=== PATIENT | female | born 1995 | race African-American/Black ===

== ENCOUNTER 2019-04-19 13:57 | Emergency (ER) | payer OTHER, SELFPAY ==
[2019-04-19 14:11] VITALS: BP 117/63; PULSE 83; RESP 16; TEMP 36.6; O2SAT 100
--- NOTE | 2019-04-19 14:15 | ED.FEMALEGU ---
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 Reports malodorous discharge. Reports she was seen here for this earlier this month and treated for possible STDs. Patient reports her symptoms were not relieved. Reports recent unprotected sex and would like tested for STDs again. Denies fever, dysuria, hematuria, abdominal pain, or pelvic pain. Related Data Allergies Allergy/AdvReac Type Severity Reaction Status Date / Time No Known Drug Allergies Allergy Unknown Unknown Verified 03/24/19 14:53 Review of Systems Review of Systems: Narrative: CONSTITUTIONAL: Denies fever GASTROINTESTINAL: Denies abdominal pain, nausea, vomiting GENITOURINARY: Denies dysuria or hematuria. All systems reviewed & are unremarkable except as noted in HPI and below PMFSH Past Medical History Medical History (Updated 04/19/19 @ 15:29 by Marissa Hay PA-C) Healthy adult Surgical History Surgical History (Updated 03/24/19 @ 15:02 by Hans Gonzalez) No history of previous surgery Social History Social History (Updated 03/24/19 @ 15:02 by Hans Gonzalez) Smoking status: Never smoker Gender identity (if verbalized by the patient): Female Exam Narrative: Exam Narrative: GENERAL: Well-appearing, well-nourished, and in no acute distress. HEAD: Normocephalic, atraumatic. EYES: EOMI. CHEST: Clear to auscultation. No respiratory distress. No wheezes rales or rhonchi HEART: Regular rate and rhythm. No murmur heard. Normal peripheral pulses. ABDOMEN: Soft, nontender, nondistended, normal active bowel sounds. EXTREMITIES: Normal range of motion. No edema. SKIN: Warm, dry, no rash. NEURO: No focal deficits. Alert and oriented x3. PSYCH: Normal mood and affect PELVIC: Normal cervix. Mild amount of malodorous white cervical discharge Course Vital Signs Vital signs: Vital Signs Temperature 98 F 04/19/19 14:11 Pulse Rate 83 04/19/19 14:11 Respiratory Rate 16 04/19/19 14:11 Blood Pressure 117/63 04/19/19 14:11 Pulse Oximetry 100 04/19/19 14:11 Temperature 98 F 04/19/19 14:11 Pulse Rate 83 04/19/19 14:11 Respiratory Rate 16 04/19/19 14:11 Blood Pressure 117/63 04/19/19 14:11 Pulse Oximetry 100 04/19/19 14:11 MDM - Female Genitourinary MDM Narrative Medical decision making narrative: Patient presents the emergency department for foul-smelling vaginal discharge x1 month. She was seen here for this earlier this month and treated for chlamydia, gonorrhea and bacterial vaginosis. She was given one-time dose of metronidazole in the ED. Suspect possible incomplete treatment. Her Chlamydia, Gonorrhea, and trichomonas were negative earlier this month. Chlamydia and Gonorrhea were sent today. Trichomonas negative today. Patient will be treated for bacterial vaginosis with a week of metronidazole. She will follow up for results of Chlamydia and Gonorrhea. 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 Lab Data Labs: Lab Results 04/19/19 04/19/19 04/19/19 Range/Units 14:43 14:43 14:56 Urine Color Yellow (Yellow) Urine Appearance Clear (Clear) Urine pH 8.0 (5.0-9.0) Ur Specific [place] 1.029 (1.001-1.035) Urine Protein 2+ H (Negative) mg/dL Urine Glucose (UA) Negative (Negative) mg/dL Urine Ketones Negative (Negative) mg/dL Ur Blood (Man) Negative (Negative) Urine Nitrate Negative (Negative) Urine Bilirubin Negative (Negative) Urine Urobilinogen Negative (<2.0) mg/dL Leukocyte Esterase Rfl Trace H (Negative) ERASMO/UL Urine RBC 0-2 (0-2) /hpf Urine WBC 0-3 /hpf Ur Squamous Epith Cells Many H (Few) /hpf Urine Mucus Few H /l
[2019-04-19 15:17] LABS: Add Urine Microscopic? YES; Appearance Urine Clear (Clear); Bilirubin Urine Negative (Negative); Blood Urine Negative (Negative); Color Urine Yellow (Yellow); Glucose Urine UA Negative (Negative); Ketones Urine Negative (Negative); Leukocyte Esterase Ur Trace LEU/UL (Negative); Mucus Urine Few /lpf; Nitrate Urine Negative (Negative); Protein Urine 2+ mg/dL (Negative); RBC Urine 0-2 /hpf (0-2); Specific Grav Ur 1.029 (1.001-1.035); Squamous Epithelial Cell Urine Many /hpf (Few); Urobilinogen Urine Negative mg/dL (<2.0); WBC Urine 0-3 /hpf
== END 2019-04-19 15:43 | disposition home or self-care (01) ==
PROVIDERS: Physician Assistant; Emergency Provider Family Medicine
DX: N76.0 Acute vaginitis (principal)
CPT/HCPCS: 81001; 81025; 87070; 87491; 87591; 87808; 99284

== ENCOUNTER 2019-11-17 11:30 | Emergency (ER) | payer OTHER, SELFPAY ==
--- NOTE | 2019-11-17 12:25 | PC.NURSE ---
Called to triage, no response noted.
--- NOTE | 2019-11-17 12:40 | PC.NURSE ---
Called to triage at this time, no response in waiting room.
== END 2019-11-17 13:00 | disposition left against medical advice (07) ==
LOC: ANHED 12:44
DX: Z53.21 Procedure and treatment not carried out due to patient leaving prior to being seen by health care provider (principal)
CPT/HCPCS: 99199

== ENCOUNTER 2020-07-30 20:59 | Emergency (ER) | payer OTHER, SELFPAY ==
[2020-07-30 21:03] VITALS: BP 122/84; PULSE 68; RESP 18; TEMP 36.6; O2SAT 100
--- NOTE | 2020-07-30 22:38 | ED.GENADULT ---
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 She states that she went to a doctor got some vaginal gel which did not help. She denies any fever, pelvic pain or dysuria. Related Data Allergies Allergy/AdvReac Type Severity Reaction Status Date / Time No Known Drug Allergies Allergy Unknown Unknown Verified 07/30/20 21:07 Review of Systems Constitutional: Constitutional: Denies chills, Denies fever(s), Denies headache(s) and Denies weakness Eyes: Eyes: Denies blurry vision ENT: Denies headache(s) and Denies neck pain Cardiovascular: Cardiovascular: Denies chest pain and Denies dyspnea Respiratory: Respiratory: Denies cough and Denies dyspnea Gastrointestinal: Gastrointestinal: Denies abdominal pain, Denies diarrhea, Denies nausea and Denies vomiting Genitourinary: Genitourinary: Denies hematuria, Denies dysuria, Reports vaginal discharge and Reports vaginal odor Musculoskeletal: Musculoskeletal: Denies back pain and Denies neck pain Neurologic: Denies headache(s) and Denies weakness [facility] Past Medical History Medical History Healthy adult Surgical History Surgical History No history of previous surgery Social History Social History Smoking status: Never smoker Gender identity (if verbalized by the patient): Female Exam Const: General: no acute distress and well developed Orientation/consciousness: oriented to person, oriented to place, oriented to time and patient oriented x3 HENMT: Head: normocephalic Ears: external ears normal General nose exam: Normal external nose present Eyes: General: appearance normal, both eyes and all related structures Conjunctivae: conjunctivae normal Neck: Neck: normal visual inspection and full ROM GI: GI Palp: No abdominal tenderness and Yes Soft to palpation : External Female Exam: normal external appearance Speculum Exam - Vagina: normal appearance of the vagina and other (white vaginal discharge) Speculum Exam - Cervix: normal appearance of the cervix Bimanual Exam- Adnexa, other: normal adnexae Skin: General skin exam: normal color and turgor normal Neuro: General: oriented to person, oriented to place, oriented to time and patient oriented x3 Cognition (Neuro): normal cognition Extrem: General: normal to inspection, full ROM and no pedal edema Psych: Appearance: grossly normal Mental Status: mental status grossly normal Affect: normal affect Course Vital Signs Vital signs: Vital Signs Temperature 36.6 C 07/30/20 21:03 Pulse Rate 68 07/30/20 21:03 Respiratory Rate 18 07/30/20 21:03 Blood Pressure 122/84 07/30/20 21:03 Pulse Oximetry 100 07/30/20 21:03 Temperature 36.6 C 07/30/20 21:03 Pulse Rate 68 07/30/20 21:03 Respiratory Rate 18 07/30/20 21:03 Blood Pressure 122/84 07/30/20 21:03 Pulse Oximetry 100 07/30/20 21:03 Medical Decision Making Vital Signs Vital Signs: Vital Signs Temperature 36.6 C 07/30/20 21:03 Pulse Rate 68 07/30/20 21:03 Respiratory Rate 18 07/30/20 21:03 Blood Pressure 122/84 07/30/20 21:03 Pulse Oximetry 100 07/30/20 21:03 Temperature 36.6 C 07/30/20 21:03 Pulse Rate 68 07/30/20 21:03 Respiratory Rate 18 07/30/20 21:03 Blood Pressure 122/84 07/30/20 21:03 Pulse Oximetry 100 07/30/20 21:03 Lab Data Labs: Lab Results 07/30/20 07/30/20 07/30/20 Range/Units 22:46 22:46 22:46 Urine Color Yellow (Yellow) Urine Appearance Cloudy H (Clear) Urine pH 6.0 (5.0-9.0) Ur Specific [place] 1.031 (1.001-1.035) Urine Protein 2+ H (Negative) mg/dL Urine G
[2020-07-30 22:59] LABS: Add Urine Microscopic? YES; Appearance Urine Cloudy (Clear); Bacteria Urine Trace /hpf; Bilirubin Urine Negative (Negative); Blood Urine Negative (Negative); Color Urine Yellow (Yellow); Glucose Urine UA Negative (Negative); Ketones Urine Negative (Negative); Leukocyte Esterase Ur Negative LEU/UL (Negative); Mucus Urine Heavy /lpf; Nitrate Urine Negative (Negative); Protein Urine 2+ mg/dL (Negative); Specific Grav Ur 1.031 (1.001-1.035); Squamous Epithelial Cell Urine Many /hpf (Few); WBC Urine 0-3 /hpf
[2020-07-30] MEDS: metroNIDAZOLE 250 MG TABLET 2000 MG PO (23:33)
[2020-07-30] MEDS: FLUCONAZOLE 100 MG TABLET 150 MG PO (23:34)
[2020-07-30] MEDS: cefTRIAXone 1 GM VIAL 0.5 GM IM (23:40)
== END 2020-07-30 23:58 | disposition home or self-care (01) ==
PROVIDERS: Emergency Provider Emergency Medicine
DX: N89.8 Other specified noninflammatory disorders of vagina (principal)
CPT/HCPCS: 81001; 81025; 87070; 87491; 87591; 87808; 96372; 99284; A9270; J0696

== ENCOUNTER 2021-01-08 10:12 | Emergency (ER) | payer OTHER, SELFPAY ==
[2021-01-08 10:17] VITALS: BP 111/56; PULSE 100; RESP 16; TEMP 37.1; O2SAT 100
[2021-01-08 11:31] LABS: Add Urine Microscopic? YES; Appearance Urine Cloudy (Clear); Bacteria Urine Trace /hpf; Bilirubin Urine Negative (Negative); Blood Urine Negative (Negative); Color Urine Yellow (Yellow); Glucose Urine UA Negative (Negative); Ketones Urine Negative (Negative); Leukocyte Esterase Ur Trace LEU/UL (Negative); Mucus Urine Rare /lpf; Nitrate Urine Negative (Negative); Protein Urine 1+ mg/dL (Negative); Specific Grav Ur 1.026 (1.001-1.035); Squamous Epithelial Cell Urine Moderate /hpf (Few); Urobilinogen Urine Negative mg/dL (<2.0); WBC Urine 0-3 /hpf
--- NOTE | 2021-01-08 13:11 | ED.GENADULT ---
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 <Aaron Hubbard PA-C - Last Filed: 01/08/21 13:15> Stated complaint: vag discharge, urinary symptoms <Aaron Hubbard PA-C - Last Filed: 01/08/21 13:15> Time Seen by Provider: 01/08/21 10:59 <Aaron Hubbard PA-C - Last Filed: 01/08/21 13:15> Source: patient and RN notes reviewed <Aaron Hubbard PA-C - Last Filed: 01/08/21 13:15> Mode of arrival: ambulatory <Aaron Hubbard PA-C - Last Filed: 01/08/21 13:15> Limitations: no limitations <Aaron Hubbard PA-C - Last Filed: 01/08/21 13:15> History of Present Illness HPI narrative: Patient is a 25-year-old female who presents at 4 months followed by [facility] has had an ultrasound notes that she has had some increasing discharge and odor with some mild irritation with urination over the course of the last week she denies any concern for STD denies vaginal bleeding pelvic cramping has 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 <Aaron Hubbard PA-C - Last Filed: 01/08/21 13:15> Related Data Home medications: Home Medications Medication Instructions Recorded Confirmed [id number] [id number] [id number] pkg PO 01/08/21 [Daily ] <Aaron Hubbard PA-C - Last Filed: 01/08/21 13:15> Allergies/adverse reactions: Allergies Allergy/AdvReac Type Severity Reaction Status Date / Time No Known Drug Allergies Allergy Unknown Unknown Verified 01/08/21 11:10 <Aaron Hubbard PA-C - Last Filed: 01/08/21 13:15> Review of Systems Review of Systems: All systems reviewed & are unremarkable except as noted in HPI and below <Aaron Hubbard PA-C - Last Filed: 01/08/21 13:15> PMFSH Past Medical History Medical History: Medical History Healthy adult <Aaron Hubbard PA-C - Last Filed: 01/08/21 13:15> Surgical History Surgical History: Surgical History No history of previous surgery <Aaron Hubbard PA-C - Last Filed: 01/08/21 13:15> Social History Social History: Social History Smoking status: Never smoker Gender identity (if verbalized by the patient): Female <Aaron Hubbard PA-C - Last Filed: 01/08/21 13:15> Exam Narrative: GENERAL: Well-appearing, well-nourished, and in no acute distress. HEAD: Normocephalic, atraumatic. EYES: PERRLA and EOMI. ENT: Nares clear, no rhinorrhea or epistaxis. Mucous membranes moist. CHEST: Clear to auscultation. No respiratory distress. No wheezes rales or rhonchi HEART: Regular rate and rhythm. No murmur heard. Normal peripheral pulses. ABDOMEN: Soft, nontender, nondistended FEMALE GENITOURINARY: Patient with small amount of white discharge in the vaginal vault otherwise unremarkable EXTREMITIES: Normal range of motion. No edema. SKIN: Warm, dry, no rash. NEURO: No focal deficits. Alert and oriented x3. PSYCH: Normal mood and affect. <Aaron Hubbard PA-C - Last Filed: 01/08/21 13:15> Course Course Emergency Course: Patient had vaginal exam urinalysis was obtained will be cultured vaginal cultures will be sent off she will at this time be managed with follow-up she has been advised to follow her results as well on her [facility] My[facility] she is afebrile nontoxic-appearing vital signs intact and stable she has been provided with reasons to return there is no abdominal pain no vaginal bleeding no pelvic cramping. Patient has been given reasons to return <Aaron Hubbard PA-C - Last Filed: 01/08/21 13:15> Vital Signs Vital signs: Vital Signs Temperature 98.7 F 01/08/21 10:17 Pulse Rate 100 01/08/21 10:17 Respiratory Rate 16 01/08/21 10:17 Blood Pressure 111/56 L 01/08/21 10:17 Pulse Oximetry 100 01/08/21 10:17 Temperature 98.1 F 01/08/21 13:26 Pulse Rate 90
[2021-01-08 13:26] VITALS: BP 104/66; PULSE 90; RESP 17; TEMP 36.7; O2SAT 99
== END 2021-01-08 13:25 | disposition home or self-care (01) ==
PROVIDERS: Emergency Provider General Practice
DX: O99.891 Other specified diseases and conditions complicating pregnancy (principal); N89.8 Other specified noninflammatory disorders of vagina; Z3A.00 Weeks of gestation of pregnancy not specified
CPT/HCPCS: 81001; 81025; 87070; 87086; 87088; 99283

== ENCOUNTER 2021-11-04 12:27 | Emergency (ER) | payer OTHER, SELFPAY ==
[2021-11-04 12:37] VITALS: BP 127/92; PULSE 76; RESP 16; TEMP 36.5; O2SAT 100
--- NOTE | 2021-11-04 12:57 | ED.URI ---
HPI - URI/Sore Throat General Chief Complaint: Upper Respiratory Infection Stated Complaint: covid positive Time Seen by Provider: 11/04/21 12:32 History of Present Illness HPI Narrative: 26-year-old female presents the emergency room for evaluation of nausea cough and a positive COVID test result. Patient states she was at a family reunion over the weekend and was informed that she was exposed to COVID. States that she took at home COVID test on Wednesday and came back positive. Patient denies having any fevers shortness of breath or difficulty breathing. Is no medical problems Related Data Allergies Allergy/AdvReac Type Severity Reaction Status Date / Time No Known Drug Allergies Allergy Unknown Unknown Verified 11/04/21 12:54 Review of Systems Review of Systems: CONSTITUTIONAL: Denies fever, chills, or sweats. EYES: Denies visual changes, redness, or discharge. ENT: Denies rhinorrhea, congestion, sore throat, or otalgia. CARDIOVASCULAR: Denies chest pain, palpitations, or edema. RESPIRATORY: Reports cough GASTROINTESTINAL: Reports nausea GENITOURINARY: Denies dysuria or hematuria. SKIN: Denies rash or itching. MUSCULOSKELETAL: Denies back pain, joint pain, or myalgia. NEUROLOGIC: Denies headache, numbness, dizziness, or weakness. PSYCHIATRIC: Denies anxiety or depression. PMFSH Past Medical History Medical History Healthy adult Surgical History Surgical History No history of previous surgery Social History Social History Smoking status: Never smoker Gender identity (if verbalized by the patient): Female Exam Narrative: GENERAL: Well-appearing, well-nourished, no physical limitations, and in no acute distress. HEAD: Normocephalic, atraumatic. EYES: Conjunctivae normal, PERRLA and EOMI. NECK: Supple. No adenopathy or masses. CHEST: Clear to auscultation. No respiratory distress. No wheezes rales or rhonchi. No tenderness. HEART: Regular rate and rhythm. No murmur heard. Normal peripheral pulses. ABDOMEN: Soft, nontender, nondistended, normal active bowel sounds. EXTREMITIES: Normal range of motion. No edema. No clubbing or cyanosis SKIN: Warm, dry, no rash. No noted wounds NEURO: No focal deficits. Alert and oriented x3. MAEW. CN's II-XI intact bilaterally, normal gait PSYCH: Cooperative. Normal mood and affect. Course Vital Signs Vital signs: Vital Signs Temperature 36.5 C 11/04/21 12:37 Pulse Rate 76 11/04/21 12:37 Respiratory Rate 16 11/04/21 12:37 Blood Pressure 127/92 H 11/04/21 12:37 Pulse Oximetry 100 11/04/21 12:37 Oxygen Delivery Room Air 11/04/21 12:37 Temperature 36.5 C 11/04/21 12:37 Pulse Rate 76 11/04/21 12:37 Respiratory Rate 16 11/04/21 12:37 Blood Pressure 127/92 H 11/04/21 12:37 Pulse Oximetry 100 11/04/21 12:37 Oxygen Delivery Room Air 11/04/21 12:56 Discharge Plan Discharge Clinical Impression: Upper respiratory infection, COVID, Nausea Patient Disposition: Home, Self-Care Condition: Stable Instructions: Antibiotic Form, COVID-19 (Coronavirus Disease 2019) (ED) Additional Instructions: Take Tylenol and ibuprofen as needed for body aches and fever. Prescriptions: New ondansetron 4 mg tablet,disintegrating 4 mg PO Q8H Qty: 20 0RF Follow-up/Referrals: PHYSICIAN,COLLECTION TECHNICIAN [Primary Care Provider] - Time of Disposition: 13:02
[2021-11-04 14:10] LABS: SARS-CoV-2 RNA PCR Positive
[2021-11-04 14:40] VITALS: BP 116/69; PULSE 74; RESP 16; TEMP 36.3; O2SAT 100
== END 2021-11-04 14:40 | disposition home or self-care (01) ==
LOC: ANHED 13:46
PROVIDERS: Emergency Provider Nurse Practitioner Family
DX: U07.1 COVID-19 (principal); J06.9 Acute upper respiratory infection, unspecified; R11.0 Nausea
CPT/HCPCS: 99283; C9803; U0003; U0005

== ENCOUNTER 2022-10-30 14:09 | Emergency (ER) | payer OTHER, SELFPAY ==
--- NOTE | 2022-10-30 14:31 | ED.FEMALEGU ---
HPI - Female Genitourinary General Chief complaint: Urogenital-Female Stated complaint: vaginal issue Time Seen by Provider: 10/30/22 14:32 Source: patient and RN notes reviewed Mode of arrival: ambulatory Limitations: no limitations History of Present Illness HPI Narrative: 19-year-old female presented for complaint of fall vaginal odor and thick white discharge over the past 4 days. She denies itching, dysuria, abdominal pain, dyspareunia, hematuria, flank pain, n/v/d/f/c. Was treated last month for BV. Endorses change in sexual partner since last treatment. Denies concern for std at this time. LMP 10/14/22, irregular. Related Data Allergies Allergy/AdvReac Type Severity Reaction Status Date / Time No Known Drug Allergies Allergy Unknown Unknown Verified 10/30/22 14:14 Review of Systems Review of Systems: CONSTITUTIONAL: Denies body aches, fever, chills, or sweats. CARDIOVASCULAR: Denies chest pain, palpitations, or edema. RESPIRATORY: Denies cough or dyspnea. GASTROINTESTINAL: Denies abdominal pain, nausea, vomiting, or diarrhea. GENITOURINARY: Reports vaginal odor and dc denies dysuria, frequency, urgency, hematuria, flank pain SKIN: Denies rash, itching, or wounds. MUSCULOSKELETAL: Denies back pain or myalgia. [facility] Past Medical History Medical History Healthy adult Surgical History Surgical History No history of previous surgery Social History Social History Smoking status: Never smoker Gender identity (if verbalized by the patient): Female Comments At time of signature, I have reviewed and agree with nursing past medical, surgical, social and family history unless otherwise noted. Please see nursing chart for further information. There is no relevant family history pertinent to the presenting complaint Exam Narrative: GENERAL: Well-appearing and in no acute distress. HEAD: Normocephalic EYES: EOMI. . ENT: Mucous membranes pink and moist. NECK: Normal AROM. Supple. CHEST: No respiratory distress. Clear to auscultation. HEART: Regular rate and rhythm. ABDOMEN: Soft, nontender, nondistended, normal active bowel sounds. No CVA tenderness : Vagina: normal vaginal introitus, pink with bleeding in vault from cervix c/w menses. No foreign body, laceration or lesions. No swelling. Nontender. No odor. normal appearance of the cervix, closed. Chaperoned by Kaia DALEY SKIN: Warm, dry, no rash. NEURO: No focal deficits. Alert and oriented x3. Gait steady. PSYCH: Normal affect. Course Course Emergency Course: Patient is aware of diagnosis, understands and agrees to treatment plan. Anticipatory guidance given. Patient agrees to follow-up as directed and is aware of reasons to seek care at the emergency department. Portions of this record may have been created with voice recognition software Level of Care: Express Care Visit Vital Signs Vital signs: Vital Signs Temperature 99.0 F 10/30/22 14:39 Pulse Rate 95 10/30/22 14:39 Respiratory Rate 16 10/30/22 14:39 Blood Pressure 104/63 10/30/22 14:39 Pulse Oximetry 99 10/30/22 14:39 Oxygen Delivery Room Air 10/30/22 14:39 Temperature 99.0 F 10/30/22 14:39 Pulse Rate 95 10/30/22 14:39 Respiratory Rate 16 10/30/22 14:39 Blood Pressure 104/63 10/30/22 14:39 Pulse Oximetry 99 10/30/22 14:39 Oxygen Delivery Room Air 10/30/22 14:39 Reviewed MDM - Female Genitourinary MDM Narrative Medical decision making narrative: Vaginal culture sent. pt started menses. neg preg. Informed Pt will be contacted w/ results when they become available, and explained that we may treat empirically at this time vs waiting until culture results. Pt is aware the culture may not detect infection and odor may be r/t hormonal changes of starting menses,
[2022-10-30 14:39] VITALS: BP 104/63; PULSE 95; RESP 16; TEMP 37.2; O2SAT 99
== END 2022-10-30 15:24 | disposition home or self-care (01) ==
PROVIDERS: Emergency Provider Nurse Practitioner Family
DX: N89.8 Other specified noninflammatory disorders of vagina (principal)
CPT/HCPCS: 81025; 87070; 99213; G0463

== ENCOUNTER 2023-01-07 12:41 | Emergency (ER) | payer OTHER, SELFPAY ==
[2023-01-07 12:46] VITALS: BP 94/66; PULSE 94; RESP 16; TEMP 36.5; O2SAT 99
--- NOTE | 2023-01-07 12:46 | ED.URI ---
HPI - URI/Sore Throat General Chief Complaint: Upper Respiratory Infection Stated Complaint: Sinus Time Seen by Provider: 01/07/23 12:46 Source: patient Mode of arrival: ambulatory Limitations: no limitations History of Present Illness HPI Narrative: Patient is a 27-year-old female presents 1-2 weeks of sinus congestion, cough and sore throat. Patient states she has also had some eye irritation. Denies any fever, chills nausea vomiting, diarrhea. Patient use nasal spray and Tea with no relief. Related Data Allergies Allergy/AdvReac Type Severity Reaction Status Date / Time No Known Drug Allergies Allergy Unknown Unknown Verified 01/07/23 12:46 Review of Systems Review of Systems: All systems reviewed & are unremarkable except as noted in HPI and below Constitutional: Constitutional: Denies body ache(s), Denies chills, Denies fatigue, Denies fever(s), Denies headache(s), Denies malaise and Denies weakness Eyes: Eyes: Denies blurry vision, Denies itchy eyes and Denies loss of vision ENT: Denies otalgia, Denies headache(s), Reports nasal congestion, Denies sinus pain and Reports sore throat Cardiovascular: Cardiovascular: Denies chest pain, Denies irregular heart rhythm and Denies dyspnea Respiratory: Respiratory: Reports cough and Denies dyspnea Gastrointestinal: Gastrointestinal: Denies abdominal pain, Denies diarrhea, Denies nausea and Denies vomiting Musculoskeletal: Musculoskeletal: Denies back pain, Denies myalgias and Denies arthralgias Integumentary/Breasts: Skin/Breast: Denies pruritus and Denies rash Neurologic: Denies headache(s), Denies loss of vision and Denies weakness Psychiatric: Psychiatric: Reports no additional psychiatric complaints Endocrine: Endocrine: Denies fatigue Allergic/Immunologic: Allergic/Immunologic: Denies itchy eyes PMFSH Past Medical History Medical History Healthy adult Surgical History Surgical History No history of previous surgery Social History Social History Smoking status: Never smoker Gender identity (if verbalized by the patient): Female Comments At time of signature, agree with nursing past medical, surgical, social and family history. There is no relevant family history pertinent to the presenting complaint. Exam Const: General: cooperative, healthy appearing, comfortable, no acute distress and well nourished Nutritional Appearance: well nourished Orientation/consciousness: patient oriented x3 Limitations: no limitations HENMT: Head: normal to inspection, normocephalic and atraumatic Ears: hearing grossly normal bilaterally, external ears normal, TM's normal bilaterally, EAC's normal and no periauricular adenopathy Face/Nose/Sinus: Normal external nose present, Abnormal mucous membranes and turbinates present erythematous bilateral and diffuse, normal facial exam, sinuses nontender and face symmetric Face and sinus: normal facial exam, sinuses nontender and face symmetric Mouth: Yes Normal oral and palatal mucosa present, Yes lip normal, Yes tongue normal, Yes Normal salivary glands and ducts present, Yes oropharynx normal and Yes moist mucous membranes Teeth and gingiva: dentition normal Throat: tonsils normal, uvula midline, posterior oropharynx abnormal erythema and postnasal drainage Eyes: General: appearance normal, both eyes and all related structures Alignment and Position: alignment normal and position normal Periorbital: periorbital findings normal Eyelids: eyelids normal Pupils: Equal, round and reactive pupils present Neck: Neck: normal visual inspection, full ROM, no lymphadenopathy and supple Chest: Chest palpation & inspection: normal inspection of the chest and normal palpation of entire chest wall Resp: Effort & Inspection: normal respiratory effort and able to speak in c
== END 2023-01-07 13:05 | disposition home or self-care (01) ==
PROVIDERS: Emergency Provider Nurse Practitioner Family
DX: J06.9 Acute upper respiratory infection, unspecified (principal); R05.9 Cough, unspecified
CPT/HCPCS: 99213; G0463

== ENCOUNTER 2023-02-02 17:29 | Emergency (ER) | payer OTHER, SELFPAY ==
[2023-02-02 17:51] VITALS: BP 78/55; PULSE 84; RESP 16; TEMP 36.7; O2SAT 99
--- NOTE | 2023-02-02 18:17 | ED.FEMALEGU ---
HPI - Female Genitourinary General Chief complaint: Urogenital-Female Stated complaint: Vaginal Problems Time Seen by Provider: 02/02/23 18:17 Source: patient, RN notes reviewed and old records reviewed Mode of arrival: ambulatory Limitations: no limitations History of Present Illness HPI Narrative: 27-year-old female presents to the [facility] with complaints of vaginal issues. Patient states 3-4 days ago started with some vaginal discharge and an abnormal smell. Does have a history of BV, states it feels just like last time. Requesting the gel and sit of the pills. Patient is declining the exam due to having 2 small children with her. Denies any chances of . Denies urinary symptoms. Denies chances of STDs. Related Data Allergies Allergy/AdvReac Type Severity Reaction Status Date / Time No Known Drug Allergies Allergy Unknown Unknown Verified 02/02/23 17:55 Review of Systems Review of Systems: All systems reviewed & are unremarkable except as noted in HPI and below Constitutional: Constitutional: Reports no additional constitutional complaints Eyes: Eyes: Reports no additional eye complaints ENT: Reports system reviewed and no additional complaints, except as documented Cardiovascular: Cardiovascular: Reports no additional cardiovascular complaints, Denies chest pain and Denies dyspnea Respiratory: Respiratory: Reports no additional respiratory complaints, Denies chest congestion, Denies cough and Denies dyspnea Gastrointestinal: Gastrointestinal: Reports no additional gastrointestinal complaints, Denies abdominal pain, Denies nausea and Denies vomiting Genitourinary: Genitourinary: Reports as per HPI Musculoskeletal: Musculoskeletal: Reports no additional musculoskeletal complaints Integumentary/Breasts: Skin/Breast: Reports system reviewed and no additional complaints, except as docu Neurologic: Reports system reviewed and no additional complaints, except as documented Psychiatric: Psychiatric: Reports no additional psychiatric complaints Allergic/Immunologic: Allergic/Immunologic: Reports no additional allergic/immunologic complaints [facility] Past Medical History Medical History Healthy adult Surgical History Surgical History No history of previous surgery Social History Social History Smoking status: Never smoker Gender identity (if verbalized by the patient): Female Comments At the time of my signature, I reviewed and agree with the nursing past medical, surgical, social, and family history. There is no relevant family history pertinent to the patient complaint. Exam Const: General: cooperative, healthy appearing, comfortable, no acute distress, well developed, alert and well nourished Nutritional Appearance: well nourished Orientation/consciousness: patient oriented x3 Limitations: no limitations HENMT: Head: normal to inspection Ears: hearing grossly normal bilaterally and external ears normal Face/Nose/Sinus: Normal external nose present, Normal nares present, Normal nasal mucous membranes and turbinates present, normal facial exam and face symmetric Face and sinus: normal facial exam and face symmetric Eyes: General: appearance normal, both eyes and all related structures Alignment and Position: alignment normal Periorbital: periorbital findings normal Pupils: Equal, round and reactive pupils present EOM: EOMs intact bilaterally Neck: Neck: normal visual inspection, full ROM, no lymphadenopathy and no meningeal signs Chest: Chest palpation & inspection: normal inspection of the chest Resp: Effort & Inspection: normal respiratory effort and able to speak in complete sentences Auscultation: clear to auscultation bilaterally, no crackles, no rales, no rhonchi and no wheezes Cardio: Rate: regular rate Rhythm: regula
== END 2023-02-02 18:33 | disposition home or self-care (01) ==
PROVIDERS: Emergency Provider Nurse Practitioner
DX: N76.0 Acute vaginitis (principal)
CPT/HCPCS: 81003; 99213; G0463

== ENCOUNTER 2023-03-20 18:49 | Emergency (ER) | payer OTHER, SELFPAY ==
[2023-03-20 19:01] VITALS: BP 97/79; PULSE 65; RESP 16; TEMP 36.7; O2SAT 99
--- NOTE | 2023-03-20 19:36 | ED.FEMALEGU ---
HPI - Female Genitourinary General Chief complaint: Urogenital-Female Stated complaint: vaginal issue Time Seen by Provider: 03/20/23 19:36 Source: patient Mode of arrival: ambulatory Limitations: no limitations History of Present Illness HPI Narrative: 27-year-old female presents with complaint of vaginal odor and discharge, itching for 2-3 days. 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 Did schedule an appointment. No concerns for STI. No urinary symptoms. All systems reviewed and negative except as noted above. Related Data Allergies Allergy/AdvReac Type Severity Reaction Status Date / Time No Known Drug Allergies Allergy Unknown Unknown Verified 03/20/23 18:59 Review of Systems Review of Systems: CONSTITUTIONAL: Denies fever, chills, or sweats. EYES: Denies visual changes, redness, or discharge. ENT: Denies rhinorrhea, congestion, sore throat, or otalgia. CARDIOVASCULAR: Denies chest pain, palpitations, or edema. RESPIRATORY: Denies cough or dyspnea. GASTROINTESTINAL: Denies abdominal pain, nausea, vomiting, or diarrhea. GENITOURINARY: Denies dysuria or hematuria. Reports vaginal discharge, itching and odor. SKIN: Denies rash or itching. MUSCULOSKELETAL: Denies back pain, joint pain, or myalgia. NEUROLOGIC: Denies headache, numbness, or weakness. PSYCHIATRIC: Denies anxiety or depression. All other systems reviewed are negative, except as documented in HPI. [facility] Past Medical History Medical History Healthy adult Surgical History Surgical History No history of previous surgery Social History Social History Smoking status: Never smoker Gender identity (if verbalized by the patient): Female Comments At time of signature, agree with nursing past medical, surgical, social and family history. There is no relevant family history pertinent to the presenting complaint. Exam Narrative: GENERAL: This is a well-nourished, well-developed patient, in no apparent distress. HEAD: normocephalic, atraumatic. EYES: PERRL. Sclera clear/white. Vision is grossly intact. EARS: External ears normal NOSE: External nose normal NECK: Neck supple, non-tender without lymphadenopathy, masses or thyromegaly. CARDIOVASCULAR: Regular rate and rhythm without murmurs, gallops, or rubs. RESPIRATORY: Clear to auscultation. Breath sounds equal bilaterally. No wheezes, rales, or rhonchi. SKIN: warm, Dry, intact with no suspicious lesions or rash, good texture and turgor. NEURO: awake, alert, and oriented to person, place and time. There were no obvious focal neurologic abnormalities. EXTREMITIES: No joint tenderness, effusion, or edema noted. Pelvic exam deferred by patient Course Course Level of Care: Express Care Visit Vital Signs Vital signs: Vital Signs Temperature 36.7 C 03/20/23 19:01 Pulse Rate 65 03/20/23 19:01 Respiratory Rate 16 03/20/23 19:01 Blood Pressure 97/79 L 03/20/23 19:01 Pulse Oximetry 99 03/20/23 19:01 Oxygen Delivery Room Air 03/20/23 19:01 Temperature 36.7 C 03/20/23 19:01 Pulse Rate 65 03/20/23 19:01 Respiratory Rate 16 03/20/23 19:01 Blood Pressure 97/79 L 03/20/23 19:01 Pulse Oximetry 99 03/20/23 19:01 Oxygen Delivery Room Air 03/20/23 19:01 reviewed MDM - Female Genitourinary MDM Narrative Medical decision making narrative: patient deferred pelvic exam. Requesting treatment for bacterial vaginosis and yeast. Has appointment with customer service representative teller in 2 weeks. Patient is aware of diagnosis, understands and agrees to treatment plan. Anticipatory guidance given. Patient agrees to follow-up as directed and is aware of reasons to seek care at the emergency department. Portions of this record may have been created with voice recognition software Discharge Plan Di
== END 2023-03-20 19:50 | disposition home or self-care (01) ==
PROVIDERS: Emergency Provider Nurse Practitioner Family
DX: N89.8 Other specified noninflammatory disorders of vagina (principal)
CPT/HCPCS: 99213; G0463

== ENCOUNTER 2023-06-05 13:34 | Emergency (ER) | payer OTHER, SELFPAY ==
[2023-06-05 14:10] VITALS: BP 107/76; PULSE 65; RESP 18; TEMP 36.7; O2SAT 100
--- NOTE | 2023-06-05 14:42 | ED.FEMALEGU ---
HPI - Female Genitourinary General Chief complaint: Urogenital-Female Stated complaint: Vaginal Problems Time Seen by Provider: 06/05/23 14:32 Source: patient and RN notes reviewed History of Present Illness HPI Narrative: Patient presents today complaining of 5 day history vaginal itching and odor with a thin white discharge. Symptoms began after having intercourse using a different condoms than she normally does. Denies any external irritation or itching. States she believes she has bacterial vaginosis and yeast infection. Reports she called her OBGYN for an appointment but they could not get her in for 2-3 weeks. She denies any urinary symptoms or concerns regarding sexually transmitted infections. She has not tried any [id number] treatment prior to arrival. Related Data Allergies Allergy/AdvReac Type Severity Reaction Status Date / Time No Known Drug Allergies Allergy Unknown Unknown Verified 06/05/23 13:53 Review of Systems Review of Systems: CONSTITUTIONAL: Denies body aches, fever, chills, or sweats. EYES: Denies visual changes, redness, or discharge. ENT: Denies rhinorrhea, congestion, sore throat, or otalgia. CARDIOVASCULAR: Denies chest pain, palpitations, or edema. RESPIRATORY: Denies cough or dyspnea. GASTROINTESTINAL: Denies abdominal pain, nausea, vomiting, or diarrhea. GENITOURINARY: Denies dysuria or hematuria. + vaginal itching, odor, discharge SKIN: Denies rash, itching, or wounds. MUSCULOSKELETAL: Denies back pain, joint pain, or myalgia. NEUROLOGIC: Denies headache, numbness, tingling, or weakness. PSYCH: Denies depression or anxiety. [facility] Past Medical History Medical History Healthy adult Surgical History Surgical History No history of previous surgery Social History Social History Smoking status: Never smoker Gender identity (if verbalized by the patient): Female Comments At time of signature, I have reviewed and agree with nursing past medical, surgical, social and family history unless otherwise noted. Please see nursing chart for further information. There is no relevant family history pertinent to the presenting complaint Exam Narrative: GENERAL: Well-appearing, well-nourished, and in no acute distress. HEAD: Normocephalic, atraumatic. EYES: EOMI. No redness or drainage. Conjunctivae normal. ENT: Mucous membranes pink and moist. NECK: Normal AROM. CHEST: No respiratory distress. : Exam deferred EXTREMITIES: Normal range of motion. No edema. SKIN: Warm, dry, no rash. Capillary refill normal. Normal skin turgor. NEURO: No focal deficits. Alert and oriented x3. Gait steady. PSYCH: Normal affect. No signs of depression or anxiety. Course Course Level of Care: Express Care Visit Vital Signs Vital signs: Vital Signs Temperature 98.1 F 06/05/23 14:10 Pulse Rate 65 06/05/23 14:10 Respiratory Rate 18 06/05/23 14:10 Blood Pressure 107/76 06/05/23 14:10 Pulse Oximetry 100 06/05/23 14:10 Oxygen Delivery Room Air 06/05/23 14:10 Temperature 98.1 F 06/05/23 14:10 Pulse Rate 65 06/05/23 14:10 Respiratory Rate 18 06/05/23 14:10 Blood Pressure 107/76 06/05/23 14:10 Pulse Oximetry 100 06/05/23 14:10 Oxygen Delivery Room Air 06/05/23 14:10 Reviewed MDM - Female Genitourinary MDM Narrative Medical decision making narrative: Patient will be treated with both Metrogel and fluconazole as requested. She will follow-up with her OBGYN if symptoms do not improve. Anticipatory guidance given. Differential Diagnosis Differential diagnosis: Likely bacterial vaginosis, vaginitis and other (Candidiasis) Critical Care Time Critical Care Time Critical Care Time: No Discharge Plan Discharge Clinical Impression: Vaginal discharge Patient
== END 2023-06-05 14:45 | disposition home or self-care (01) ==
PROVIDERS: Emergency Provider Nurse Practitioner
DX: N89.8 Other specified noninflammatory disorders of vagina (principal)
CPT/HCPCS: 99213; G0463

== ENCOUNTER 2023-08-09 09:17 | Emergency (ER) | payer OTHER, SELFPAY ==
[2023-08-09 09:31] VITALS: BP 112/78; PULSE 80; RESP 16; TEMP 36.6; O2SAT 100
--- NOTE | 2023-08-09 09:47 | ED.FEMALEGU ---
HPI - Female Genitourinary General Chief complaint: Urogenital-Female Stated complaint: vaginal discharge Time Seen by Provider: 08/09/23 09:36 Source: patient, RN notes reviewed and old records reviewed Mode of arrival: ambulatory Limitations: no limitations History of Present Illness HPI Narrative: Patient presents today complaining of a 2 week history of malodorous vaginal discharge that is chunky and white. Patient has been seen numerous times in the past for similar symptoms and has been treated with Metrogel and fluconazole without testing. She has an appointment with her OBGYN in a few weeks. 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 Related Data Allergies Allergy/AdvReac Type Severity Reaction Status Date / Time No Known Drug Allergies Allergy Unknown Unknown Verified 08/09/23 09:26 Review of Systems Review of Systems: CONSTITUTIONAL: Denies body aches, fever, chills, or sweats. EYES: Denies visual changes, redness, or discharge. ENT: Denies rhinorrhea, congestion, sore throat, or otalgia. CARDIOVASCULAR: Denies chest pain, palpitations, or edema. RESPIRATORY: Denies cough or dyspnea. GASTROINTESTINAL: Denies abdominal pain, nausea, vomiting, or diarrhea. GENITOURINARY: Vaginal odor and discharge SKIN: Denies rash, itching, or wounds. MUSCULOSKELETAL: Denies back pain, joint pain, or myalgia. NEUROLOGIC: Denies headache, numbness, tingling, or weakness. PSYCH: Denies depression or anxiety. [facility] Past Medical History Medical History Healthy adult Surgical History Surgical History No history of previous surgery Social History Social History Smoking status: Never smoker Gender identity (if verbalized by the patient): Female Comments At time of signature, I have reviewed and agree with nursing past medical, surgical, social and family history unless otherwise noted. Please see nursing chart for further information. There is no relevant family history pertinent to the presenting complaint Exam Narrative: GENERAL: Well-appearing, well-nourished, and in no acute distress. HEAD: Normocephalic, atraumatic. EYES: EOMI. No redness or drainage. Conjunctivae normal. ENT: Mucous membranes pink and moist. NECK: Normal AROM. CHEST: No respiratory distress. 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 Vaginal normal, cervix normal. Moderate amount of thin white, malodorous discharge. Swabs obtained. External genitalia normal EXTREMITIES: Normal range of motion. No edema. SKIN: Warm, dry, no rash. Capillary refill normal. Normal skin turgor. NEURO: No focal deficits. Alert and oriented x3. Gait steady. PSYCH: Normal affect. No signs of depression or anxiety. Course Course Level of Care: Express Care Visit Vital Signs Vital signs: Vital Signs Temperature 98 F 08/09/23 09:31 Pulse Rate 80 08/09/23 09:31 Respiratory Rate 16 08/09/23 09:31 Blood Pressure 112/78 08/09/23 09:31 Pulse Oximetry 100 08/09/23 09:31 Oxygen Delivery Room Air 08/09/23 09:31 Temperature 98 F 08/09/23 09:31 Pulse Rate 80 08/09/23 09:31 Respiratory Rate 16 08/09/23 09:31 Blood Pressure 112/78 08/09/23 09:31 Pulse Oximetry 100 08/09/23 09:31 Oxygen Delivery Room Air 08/09/23 09:31 MDM - Female Genitourinary MDM Narrative Medical decision making narrative: Swab sent to the hospital for bacterial vaginosis and yeast. Patient will be treated with 1 dose of fluconazole. Discussed using non scented Dove to clean vulva. Patient prefers Metrogel if positive for BV. Anticipatory guidance given. Differential Diagnosis Differential diagnosis: Likely bacterial vaginosis, vaginitis and other (Jeanne) Critical Care Time Critica
[2023-08-11 22:49] LABS: Bacterial Vaginosis POSITIVE (NEGATIVE)
== END 2023-08-09 10:05 | disposition home or self-care (01) ==
PROVIDERS: Emergency Provider Nurse Practitioner
DX: N89.8 Other specified noninflammatory disorders of vagina (principal)
CPT/HCPCS: 81513; 87070; 99214; G0463

== ENCOUNTER 2024-01-24 08:22 | Emergency (ER) | payer OTHER, SELFPAY ==
[2024-01-24 08:33] VITALS: BP 111/61; PULSE 66; RESP 18; TEMP 37; O2SAT 100
--- NOTE | 2024-01-24 08:33 | ED.ABDPAIN ---
HPI - Abdominal Pain General Stated Complaint: Vaginal Problems/Left Hand Finger Pain Time Seen by Provider: 01/24/24 08:42 Source: patient, RN notes reviewed and old records reviewed Mode of arrival: ambulatory Limitations: no limitations History of Present Illness HPI narrative: Patient presents with complaints of vaginal discharge that is consistent with past bacterial vaginosis infection. She denies any concern for STIs. Reports fishy smelling white discharge for 2 weeks. Denies any vaginal itching. She also complains of a cut to the left 3rd finger, says she cut it with scissors yesterday while putting up a [place] tree. No active bleeding at this time. Denies other complaints. No other injury Related Data Home Medications Medication Instructions Recorded Confirmed No Home Medications 01/24/24 01/24/24 Allergies Allergy/AdvReac Type Severity Reaction Status Date / Time No Known Drug Allergies Allergy Unknown Unknown Verified 01/24/24 08:52 Review of Systems Review of Systems: All systems reviewed & are unremarkable except as noted in HPI and below Constitutional: Constitutional: Reports no additional constitutional complaints ENT: Reports system reviewed and no additional complaints, except as documented Cardiovascular: Cardiovascular: Reports no additional cardiovascular complaints Respiratory: Respiratory: Reports no additional respiratory complaints Gastrointestinal: Gastrointestinal: Reports no additional gastrointestinal complaints Genitourinary: Genitourinary: Reports as per HPI, Reports vaginal discharge, Reports vaginal odor and Denies vaginal pruritus Integumentary/Breasts: Skin/Breast: Reports system reviewed and no additional complaints, except as docu and Reports as per HPI [facility] Past Medical History Medical History Healthy adult Surgical History Surgical History No history of previous surgery Social History Social History Smoking status: Never smoker Gender identity (if verbalized by the patient): Female Comments At the time of my signature, I reviewed and agree with the nursing past medical, surgical, social, and family history. There is no relevant family history pertinent to the patient complaint. Exam Const: General: cooperative, no acute distress, alert and awake Orientation/consciousness: oriented to person, oriented to place and oriented to time HENMT: Head: normal to inspection Resp: Effort & Inspection: normal respiratory effort and able to speak in complete sentences Auscultation: clear to auscultation bilaterally, no crackles, no rales, no rhonchi and no wheezes Cardio: Palpation: normal PMI Rate: regular rate Rhythm: regular rhythm Heart sounds: S1 normal heart sound present and S2 normal heart sound present Skin: Trauma: laceration (5 mm shallow laceration to left 3rd finger, no active bleeding) Neuro: General: oriented to person, oriented to place and oriented to time Cranial nerves: Yes CN's II-XII intact bilaterally Psych: Appearance: grossly normal Thought process: Normal thought process present Insight: Good insight present (Psych) Judgement: Good judgement present (Psych) Course Course Level of Care: Express Care Visit Vital Signs Vital signs: Reviewed MDM - Abdominal Pain MDM Narrative Medical decision making narrative: Patient with shallow wound to left 3rd finger, negligible. Advised patient to keep the area covered in clean until healed. Also complaining of discharge similar to past episodes of bacterial vaginosis. Metrogel prescribed. Patient nontoxic appearing. Stable for discharge home. Discharge instructions reviewed with patient, as well as provided in writing per nursing staff. The instructions also include specific and strict return/GO TO THE ER as well as f/u information. All questions have been answered, and the patient deny any further questions with discharge and discharge plan. Some parts of this dictation were generated by voice recognition software and may contain typographical and/or grammatical inaccuracies. Differential Diagnosis Differential diagnosis: Likely other (Vaginal discharge, vaginal yeast infection, STI, UTI) Lab Data Attestation: I reviewed the patient's lab results. Lab results narrative: No concern for UTI Discharge Plan Discharge Clinical Impression: Bacterial vaginosis Patient Disposition: Home, Self-Care Condition: Stable Instructions: Antibiotic Form, Bacterial Vaginosis (ED) Additional Instructions: Use medications as prescribed. Follow-up with primary care provider. Emergency department for new or worse symptoms Patient Language: Persian Prescriptions: New metronidazole 1.3 % (65 mg/5 gram) gel 1 appful vaginal ONCE Qty: 5 0RF Rx Instructions: as a single dose at bedtime No Action No Home Medications Follow-up/Referrals: PHYSICIAN,LINEN ROOM CUSTODIAN [Primary Care Provider] - Time of Disposition: 08:55
[2024-01-24 08:42] LABS: EDUAAPPEAR Cloudy; EDUABILI Negative (Negative); EDUABLOOD Negative (Negative); EDUACOLOR1 Yellow; EDUAGLUCOSE Negative (Negative); EDUAKETONE Negative (Negative); EDUALEUKO Negative (Negative); EDUANITRATE Negative (Negative); EDUAPH 7.5; EDUAPROTEIN Negative (Negative); EDUASPGRAVITY 1.025; EDUAUROBILI 0.2
== END 2024-01-24 08:58 | disposition home or self-care (01) ==
PROVIDERS: Emergency Provider Nurse Practitioner Family
DX: N76.0 Acute vaginitis (principal)
CPT/HCPCS: 81003; 99213; G0463

== ENCOUNTER 2024-06-16 08:51 | Emergency (ER) | payer SELFPAY ==
--- NOTE | ~2024-06-16 | CT_ITS ---
EXAMINATION: CT abdomen pelvis wo con DATE: 06/16/2024 10:43 INDICATION: Lower abdominal pressure and hematuria. Urinary tract infection. TECHNIQUE: Computed tomography (CT) of the abdomen and pelvis was performed without intravenous contr ast. Automated exposure control and iterative reconstruction technique were employed. The dose-length product was 216.40 mGy-cm. COMPARISON: None FINDINGS: Heart size is normal. No pericardial or pleural effusion. Minimal dependent atelectasis in the bilate ral lower lobes. Liver, gallbladder, spleen, pancreas and bilateral adrenal glands are normal. 1.4 cm low-attenuation left renal cyst. 1 mm nonobstructing stone at the lower pole of the right kidney. Ki dneys and ureters are otherwise normal with no ureteral stones, hydroureteronephrosis or perinephric/ ureteral stranding. Anteverted uterus and bilateral adnexa are unremarkable. Small amount of ascites in the deep pelvis. Bowels including the appendix are normal. There is nonspecific subtle haziness to the fat of the greater omentum along the ascending colon which could be seen with omental infarct. IMPRESSION: 1. 1 mm nonobstructing stone at a lower pole calyx of the right kidney. No ureteral stones or hydrone phrosis. 2. Nonspecific subtle haziness to the omental fat in the right lower quadrant which could be related to age-indeterminate omental infarct. Appendix is normal. 3. Small amount of ascites in the pelvis which could be reactive or physiologic. Reviewed, dictated and finalized at location B. IMPRESSION: 1. 1 mm nonobstructing stone at a lower pole calyx of the right kidney. No uret eral stones or hydronephrosis. 2. Nonspecific subtle haziness to the omental fat in the right lower quadrant w hich could be related to age-indeterminate omental infarct. Appendix is normal. 3. Small amount of ascites in the pelvis which could be reactive or physiologic .
[2024-06-16 09:00] VITALS: TEMP 36.4
--- OUTSIDE RECORDS SUMMARY | 2024-06-16 09:09 | XMS_ITS | Data Portability ---
Author Organization [facility] KAIPatricio Address [address] [place] [address] Assessment Encounter Date Assessment Date Assessment LastModified by Organization Details LastModified Time 11/06/2015 11/06/2015 Received abnormal lab letter. Unsure of previous pap results. Informed of LGSIL and need for annual testing. HPV counseling. Still doesn't want hormonal control. Not available 11/06/2015 15:06:29 02/10/2016 02/10/2016 Doucheing every three months. No new partners but wants sti screening. Last screening in May. Female hygiene counseling. Pt. to RTC prn. Not available 02/10/2016 16:40:38 07/16/2016 07/16/2016 20 y.o. SAB x 1 here from confirmation. Had confirmation with [facility]. Denies problems. Ectopic precautions. panel and PNV today. Pt. to RTC in 3 weeks for NOB and u/s scheduling. Not available 07/16/2016 12:57:39 08/07/2016 08/07/2016 NOB here for care. Reviewed labs to be wnl. 1 pound weight loss. Pt. had been taking OTC anti nausea supplement from [facility] which helped with nausea. Preferred u/s scheduling at [facility]. Pt. to RTC in 2 weeks, first trimester screen then. Not available 08/07/2016 11:35:51 Plan of Treatment Reminders Order Date Submit Date Provider Last Modified By Organization Details Last Modified Time Details Appointments None recorded. Lab urinalysi s, dipstick 2024 025 [email or web address] In-Office Order, Internal Use Only DO Not Attach Compendium DO Not Attach Compendium, Do Not Delete/merge, [id number] 5 16:50:26 urinalysi s, dipstick, reflex micro 2024 025 [facility] [address], [place], [address], 5 22:09:52 unlisted lab - CT, NG, trich vag by KRISTI 2024 025 [email or web address] [facility] (Lab), [address], [place], [address], 5 17:12:46 urinalysi s, dipstick 2016 017 In-Office Order, Internal Use Only DO Not Attach Compendium DO Not Attach Compendium, Do Not Delete/merge, [id number] 7 11:32:12 cf (cystic fibrosis) profile 2016 017 [email or web address] [facility], [address], [address], [place], [address], 7 11:37:58 CBC w/ auto diff 2016 017 SALLIE [facility], [address], [address], [place], [address], 7 15:43:11 HIV (1+2) Ab screen, serum 2016 017 SALLIE [facility], [address], [address], [place], [address], 7 06:16:20 HBsAg (hepatiti s B surface Ag), confirmat ion, serum 2016 017 [email or web address] [facility], [address], [address], [place], [address], 7 17:51:31 rubella igg Ab screen, serum 2016 017 SALLIE [facility], [address], [address], [place], [address], 7 14:27:52 varicella -zoster igg Ab screen, serum 2016 017 SALLIE [facility], [address] [facility] [address] [facility] [address], [place], [address], 7 14:27:44 drug screen, 5 drugs, urine 2016 017 SALLIE [facility], [address] [facility] [address], [address], [place], [address], 7 16:29:38 culture, urine 2016 017 SALLIE [facility], [address] [facility] [address], [address], [place], [address], 7 00:20:05 urinalysi s, complete 2016 017 [email or web address] [facility], [address] [facility] [address], [place], [address], 7 11:37:59 hemoglobi n S (hbs), presence, blood 2016 017 SALLIE [facility], [address] [facility] [address] [facility] [address], [place], [address], 7 14:27:07 abo group + rh type, blood 2016 017 [facility], [address], [address], [place], [address], 7 11:37:59 RPR (rapid plasma reagin), quantitat emerald, serum 2016 017 [email or web address] [facility], [address] [facility], [address], [place], [address], 7 17:52:26 test, urine 2016 017 In-Office Order, Internal Use Only DO Not Attach Compendium DO Not Attach Compendium, Do Not Delete/merge, [id number] 7 12:59:38 CT + NG + TV, DNA, urine/swa b 2016 017 SALLIE [facility]Kren[facility] (Lab), [address] [place], [address], 7 08:51:18 HIV (1+2) Ab screen, serum 2015 016 DBA_[id number] [facility], [address] [facility], [address], [place], [address], 6 04:31:39 HBsAg (hepatiti s B surface Ag), serum 2015 016 DBA_PATCH_2 [id number] [facility], [address] [facility], [address], [place], [address], 6 04:31:39 RPR (rapid plasma reagin), serum 2015 016 DBA_PATCH_2 [id number] [facility], [address] [facility], [address], [place], [address], 6 04:31:39 CT + NG + TV, DNA, urine/swa b 2015 016 DBA_PATCH_2 [id number] [facility] (Lab), [address], [place], [address], 6 04:31:39 Referral None recorded. Procedures None recorded. Surgeries None recorded. Imaging US, obstetric , 1st trimester - ARRIVE WITH FULL BLADDER, NO SMALL CHILDREN. ARRIVE 15MIONS PRIOR TO SCHEDULED APPT. 2016 017 [facility] ([facility] [address] [facility], [place], [address], 7 11:14:21 Medication Orders nitrofura ntoin monohydra te/macroc rystals 100 mg capsule 2024 025 [facility] #[id number], [address], [place], [place], [id number], 5 17:07:59 Pyridium 200 mg tablet 2024 025 [facility] #27983, [address], [place], [place], [id number], 5 17:07:57 fluconazo le 150 mg tablet 2024 025 [facility] #46918, [address], [place], [place], [id number], 5 17:07:59 PNV-Selec t 27 mg-1 mg tablet 2016 017 INTERFACE [facility] #77259, [facility] [place], [place], [id number], 7 12:59:45 Flagyl 500 mg tablet 2015 016 DBA_PATCH_2 [id number] [facility] #51878, [facility] [place], [place], [id number], 6 04:31:47 Patient TargetsNo targets recorded. Patient Instructions Encounter Date Encounter Id Patient Instructions Last Modified By Organization Details Last Modified Time 06/14/2024 [id number] Urinary Tract Infection (UTI) in Women: Care Instructions [email or web address] Not available 06/14/2024 17:07:52 Take your antibiotics as directed. Do not stop taking them just because you feel better. You need to take the full course of antibiotics. Drink extra water and other fluids for the next day or two. This will help make the urine less concentrated and help wash out the bacteria that are causing the infection. (If you have kidney, heart, or liver disease and have to limit fluids, talk with your doctor before you increase the amount of fluids you drink.) Avoid drinks that are carbonated or have caffeine. They can irritate the bladder. Urinate often. Try to empty your bladder each time. To relieve pain, take a hot bath or lay a heating pad set on low over your lower belly or genital area. Never go to sleep with a heating pad in place. To prevent UTIs Drink plenty of water each day. This helps you urinate often, which clears bacteria from your system. (If you have kidney, heart, or liver disease and have to limit fluids, talk with your doctor before you increase the amount of fluids you drink.) Urinate when you need to. If you are sexually active, urinate right after you have sex. Change sanitary pads often. Avoid douches, bubble baths, feminine hygiene sprays, and other feminine hygiene products that have deodorants. After going to the bathroom, wipe from front to back. When should you call for help? Call your doctor now or seek immediate medical care if: You have new or worse fever, chills, nausea, or vomiting. You have new pain in your back just below your rib cage. This is called flank pain. There is new blood or pus in your urine. You have any problems with your antibiotic medicine. Watch closely for changes in your health, and be sure to contact your doctor if: You are not getting better after taking an antibiotic for 2 days. Your symptoms go away but then come back. [email or web address] Not available 06/14/2024 17:03:58 Reason for Referral None Reported. Results Created Date Observation Date Name Description Value Unit Range Abnormal Flag Note LastModifiedBy Organization Detail LastModifiedTime 08/08/19 17 08/07/2016 urina lysis , dipst ick Leukocytes Modera te Not Available In-Office Order Internal Use Only DO Not Attach Compendium DO Not Attach Compendium, Do Not Delete/merge, [id number] 08/07/2016 11:05:40 08/08/19 17 08/07/2016 urina lysis , dipst ick Nitrite negati ve Not Available In-Office Order Internal Use Only DO Not Attach Compendium DO Not Attach Compendium, Do Not Delete/merge, 08/07/2016 11:05:40 08/08/19 17 08/07/2016 urina lysis , dipst ick Urobilinogen .2 Not Available In-Of fice Order Internal Use Only DO Not Attach Compendium DO Not Attach Compendium, Do Not Delete/merge, 08/07/2016 11:05:40 08/08/19 17 08/07/2016 urina lysis , dipst ick Protein 30 Not Available In-Office Order Internal Use Only DO Not Attach Compendium DO Not Attach Compendium, Do Not Delete/merge, 08/07/2016 11:05:40 08/08/19 17 08/07/2016 urina lysis , dipst ick pH 7.0 Not Available In-Office Order Internal Use Only DO Not Attach Compendium DO Not Attach Compendium, Do Not Delete/merge, 08/07/2016 11:05:40 08/08/19 17 08/07/2016 urina lysis , dipst ick Blood Negati ve Not Available In-Office Order Internal Use Only DO Not Attach Compendium DO Not Attach Compendium, Do Not Delete/merge, 08/07/2016 11:05:40 08/08/19 17 08/07/2016 urina lysis , dipst ick Specific Arnold 1.025 Not Available In-Off ice Order Internal Use Only DO Not Attach Compendium DO Not Attach Compendium, Do Not Delete/merge, 08/07/2016 11:05:40 08/08/19 17 08/07/2016 urina lysis , dipst ick Ketone Negati ve Not Available In-Office Order Internal Use Only DO Not Attach Compendium DO Not Attach Compendium, Do Not Delete/merge, 08/07/2016 11:05:40 08/08/19 17 08/07/2016 urina lysis , dipst ick Bilirubin Negati ve Not Available In-Office Order Internal Use Only DO Not Attach Compendium DO Not Attach Compendium, Do Not Delete/merge, [id number] 08/07/2016 11:05:40 08/08/19 17 08/07/2016 urina lysis , dipst ick Glucose Negati ve Not Available In-Office Order Internal Use Only DO Not Attach Compendium DO Not Attach Compendium, Do Not Delete/merge, [id number] 08/07/2016 11:05:40 08/08/19 17 08/07/2016 urina lysis , dipst ick Appearance Clear Not Available In-Offi ce Order Internal Use Only DO Not Attach Compendium DO Not Attach Compendium, Do Not Delete/merge, 08/07/2016 11:05:40 08/08/19 17 08/07/2016 urina lysis , dipst ick Color Yellow Not Available In-Office Order Internal Use Only DO Not Attach Compendium DO Not Attach Compendium, Do Not Delete/merge, [id number] 08/07/2016 11:05:40 07/17/19 17 07/16/2016 pregn jose test, urine HCG positi ve Not Available In-Office Order Internal Use Only DO Not Attach Compendium DO Not Attach Compendium, Do Not Delete/merge, [id number] 07/16/2016 12:46:42 10/25/19 16 10/26/2015 pap, IG + CT/NG /TV age gdln acog testing 21-29 Not Available [facility] ([facility]) [address] [facility], [place], [address], 10/31/2015 10:11:25 10/25/19 16 10/30/2015 pap, IG + CT/NG /TV diagnosis: COMMEN T abnormal EPITH ELIAL CELL ABNOR MALIT Y. LOW-G RADE SQUAM OUS INTRA EPITH ELIAL LESIO N (LGSI L); MILD DYSPL NICKOLAS IS PRESE NT. Not Available [facility] ([facility]) [address] [facility], [place], [address], 10/31/2015 10:11:25 10/25/19 16 10/30/2015 pap, IG + CT/NG /TV recommendati on: NOELLE Spaulding abnormal SUGGE ST FOLLO W UP CLINI BEN APPRO PRIAT E. Not Available [facility] ([facility]) [address] [place], [address], 10/31/2015 10:11:25 10/25/19 16 10/30/2015 pap, IG + CT/NG /TV specimen adequacy: NOELLE Spaulding SATIS FACTO RY FOR EVALU ATION . ENDOC ERVIC AL AND/O R SQUAM OUS METAP LASTI C CELLS (ENDO CERVI ARIA COMPO NENT) ARE PRESE NT. Not Available [facility] ([facility]) [address] [facility], [place], [address], 10/31/2015 10:11:25 10/25/19 16 10/30/2015 pap, IG + CT/NG /TV clinician provided ICD10: NOELLE Spaulding Z01.4 19 Not Available [facility] ([facility]) [address] [facility], [place], [address], 10/31/2015 10:11:25 10/25/19 16 10/30/2015 pap, IG + CT/NG /TV performed by: NOELLE FERRERA N, CYTOT ECHNO LOGIS T (ASCP ) Not Available [facility] ([facility]) [address] [place], [address], 10/31/2015 10:11:25 10/25/19 16 10/30/2015 pap, IG + CT/NG /TV electronical ly signed by: NOELLE ABAD MD, PATHO LOGIS T Not Available [facility] ([facility]) [address] [place], [address], 10/31/2015 10:11:25 10/25/19 16 10/30/2015 pap, IG + CT/NG /TV . . Not Available [facility] ([facility]) [address] [place], [address], 10/31/2015 10:11:25 10/25/19 16 10/30/2015 pap, IG + CT/NG /TV pathologist provided ICD10: NOELLE Spaulding R87.6 12 Not Available [facility] ([facility]) [address] [facility], [place], [address], 10/31/2015 10:11:25 10/25/19 16 10/30/2015 pap, IG + CT/NG /TV note: COMMEN T THE PAP SMEAR IS A SCREE NI TEST DESIG KALEE TO AID IN THE DETEC TION OF OSCAR LIGNA NT AND MALIG NANT CONDI TIONS OF THE UTERI NE CERVI X. IT IS NOT A DIAGN OSTIC PROCE DURE AND SHOUL D NOT BE USED THE SOLE MEANS OF DETEC TING CERVI ARIA CANCE R. BOTH FALSE -POSI TIVE AND FALSE -NEGA TIVE REPOR TS DO OCCUR . Not Available [facility] ([facility]) [address] [facility], [place], [address], 10/31/2015 10:11:25 10/25/19 16 10/30/2015 pap, IG + CT/NG /TV test methodology: COMMEN T THIS LIQUI D BASED THINP REP(R ) PAP TEST WAS SCREE KALEE WITH THE USE OF AN IMAGE GUIDE Tabitha Gonzalez. Not Available [facility] ([facility]) [address] [place], [address], 10/31/2015 10:11:25 10/25/19 16 10/30/2015 pap, IG + CT/NG /TV . COMMEN T THE HPV DNA REFLE X CRITE ETELVINA WERE NOT MET WITH THIS SPECI MEN RESUL T THERE FORE, NO HPV TESTI NG WAS PERFO RMED. Not Available [facility] ([facility]) [address] [place], [address], 10/31/2015 10:11:25 10/25/19 16 10/31/2015 pap, IG + CT/NG /TV chlamydia, nuc. acid amp NEGATI VE negati ve Not Available [facility] ([facility]) [address] [facility], [place], [address], 10/31/2015 10:11:25 10/25/19 16 10/31/2015 pap, IG + CT/NG /TV gonococcus, nuc. acid amp NEGATI VE negati ve Not Available [facility] ([facility]) [address] [facility], [place], [address], 10/31/2015 10:11:25 10/25/19 16 10/31/2015 pap, IG + CT/NG /TV trich vag by KRISTI NEGATI VE negati ve Not Available [facility] ([facility]) [address] [facility], [place], [address], 10/31/2015 10:11:25 10/25/19 16 10/31/2015 pap, IG + CT/NG /TV papig HPV age gdln acog 21-29 Not Available [facility] (Lab) [address] [place], [address], 10/31/2015 15:27:29 10/25/19 16 10/31/2015 pap, IG + CT/NG /TV diagnosis: SPRCS abnormal EPITH ELIAL CELL ABNOR MALIT Y. LOW-G RADE SQUAM OUS INTRA EPITH ELIAL LESIO N (LGSI L); MILD DYSPL NICKOLAS IS PRESE NT. Perfo rmed at: WB Not Available [facility] (Lab) [address] [facility], [place], [address], 10/31/2015 15:27:29 10/25/19 16 10/31/2015 pap, IG + CT/NG /TV recommendati on: SPR[facility] abnormal Sugge st follo w up as clini ben appro priat e. Perfo rmed at: WB Not Available [facility] (Lab) [address] [facility], [place], [address], 10/31/2015 15:27:29 10/25/19 16 10/31/2015 pap, IG + CT/NG /TV specimen adequacy: SPRCS Satis facto ry for evalu ation . Endoc ervic al and/o r squam ous metap lasti c cells (endo cervi aria compo nent) are prese nt. Perfo rmed at: WB Not Available [facility] (Lab) [address] [facility], [place], [address], 10/31/2015 15:27:29 10/25/19 16 10/31/2015 pap, IG + CT/NG /TV clinician provided ICD10 [facility] Z01.4 19 Perfo rmed at: WB Not Available [facility] (Lab) [address] [facility], [place], [address], 10/31/2015 15:27:29 10/25/19 16 10/31/2015 pap, IG + CT/NG /TV performed by: [facility] Madan booth, Cytot echno logis t (ASCP ) Perfo rmed at: WB Not Available [facility] ([facility]) [address] [facility], [place], [address], 10/31/2015 15:27:29 10/25/19 16 10/31/2015 pap, IG + CT/NG /TV electronical ly signed [facility] Ivory Abad MD, Patho logis t Perfo rmed at: WB Not Available [facility] (Lab) [address] [facility], [place], [address], 10/31/2015 15:27:29 10/25/19 16 10/31/2015 pap, IG + CT/NG /TV Pap smear, 1 slide . Perfo rmed at: WB Not Available [facility] (Lab) [address] [facility], [place], [address], 10/31/2015 15:27:29 10/25/19 16 10/31/2015 pap, IG + CT/NG /TV pathologist provided ICD10 [facility] R87.6 12 Perfo rmed at: WB Not Available [facility] (Lab) [address] [facility], [place], [address], 10/31/2015 15:27:29 10/25/19 16 10/31/2015 pap, IG + CT/NG /TV note: PAPSMR The Pap smear is a scree ni test desig kalee to aid in the detec tion of oscar ligna nt and malig nant condi tions of the uteri ne cervi x. It is not a diagn ostic proce dure and shoul d not be used as the sole means of detec ting cervi aria cance r. Both false -posi tive and false -nega tive repor ts do occur . . Perfo rmed at: WB Not Available [facility] (Lab) [address] [place], [address], 10/31/2015 15:27:29 10/25/19 16 10/31/2015 pap, IG + CT/NG /TV test methodology: IGLPAP This liqui d based ThinP rep(R ) pap test was scree kalee with the use of an image guide tabitha gonzalez. Perfo rmed at: WB Not Available [facility] (Lab) [address] [facility], [place], [address], 10/31/2015 15:27:29 10/25/19 16 10/31/2015 pap, IG + CT/NG /TV comments NEGHPV The HPV DNA refle x crite etelvina were not met with this speci men resul t there fore, no HPV testi ng was perfo rmed. . Perfo rmed at: WB Not Available [facility] (Lab) [address] [place], [address], 10/31/2015 15:27:29 10/25/19 16 10/31/2015 pap, IG + CT/NG /TV chlamydia, nuc. acid Negati ve negati ve Perfo rmed at: =G Not Available [facility] (Lab) [address] [place], [address], 10/31/2015 15:27:29 10/25/19 16 10/31/2015 pap, IG + CT/NG /TV gonococcus, nuc. acid amp Negati ve negati ve Perfo rmed at: =G Not Available [facility] (Lab) [address] [place], [address], 10/31/2015 15:27:29 10/25/19 16 10/31/2015 pap, IG + CT/NG /TV trich vag by KRISTI Negati ve negati ve Perfo rmed at: =G Not Available [facility] (Lab) [address] [place], [address], 10/31/2015 15:27:29 10/25/19 16 10/31/2015 pap, IG + CT/NG /TV papig HPV age gdln acog 21-29 Not Available [facility] (Lab) [address] [place], [address], 10/31/2015 15:27:24 10/25/19 16 10/31/2015 pap, IG + CT/NG /TV diagnosis: SPR[facility] abnormal EPITH ELIAL CELL ABNOR MALIT Y. LOW-G RADE SQUAM OUS INTRA EPITH ELIAL LESIO N (LGSI L); MILD DYSPL NICKOLAS IS PRESE NT. Perfo rmed at: WB Not Available [facility] (Lab) [address] [place], [address], 10/31/2015 15:27:24 10/25/19 16 10/31/2015 pap, IG + CT/NG /TV recommendati on: SPR[facility] abnormal Sugge st follo w up as clini ben appro priat e. Perfo rmed at: WB Not Available [facility] ([facility]) [address] [facility], [place], [address], 10/31/2015 15:27:24 10/25/19 16 10/31/2015 pap, IG + CT/NG /TV specimen adequacy: SPRCS Satis facto ry for evalu ation . Endoc ervic al and/o r squam ous metap lasti c cells (endo cervi aria compo nent) are prese nt. Perfo rmed at: WB Not Available [facility] (Lab) [address] [place], [address], 10/31/2015 15:27:24 10/25/19 16 10/31/2015 pap, IG + CT/NG /TV clinician provided ICD10 [facility] Z01.4 19 Perfo rmed at: WB Not Available [facility] ([facility]) [address] [facility], [place], [address], 10/31/2015 15:27:24 10/25/19 16 10/31/2015 pap, IG + CT/NG /TV performed by: [facility] Vee et Inezo n, Cytot echno logis t (ASCP ) Perfo rmed at: WB Not Available [facility] ([facility]) [address] [facility], [place], [address], 10/31/2015 15:27:24 10/25/19 16 10/31/2015 pap, IG + CT/NG /TV electronical ly signed [facility] Ivory Abad MD, Patho logis t Perfo rmed at: WB Not Available [facility] ([facility]) [address] [facility], [place], [address], 10/31/2015 15:27:24 10/25/19 16 10/31/2015 pap, IG + CT/NG /TV Pap smear, 1 slide . Perfo rmed at: WB Not Available [facility] ([facility]) [address] [facility], [place], [address], 10/31/2015 15:27:24 10/25/19 16 10/31/2015 pap, IG + CT/NG /TV pathologist provided ICD10 [facility] R87.6 12 Perfo rmed at: WB Not Available [facility] (Lab) [address] [facility], [place], [address], 10/31/2015 15:27:24 10/25/19 16 10/31/2015 pap, IG + CT/NG /TV note: PAPSMR The Pap smear is a scree ni test desig kalee to aid in the detec tion of oscar ligna nt and malig nant condi tions of the uteri ne cervi x. It is not a diagn ostic proce dure and shoul d not be used as the sole means of detec ting cervi aria cance r. Both false -posi tive and false -nega tive repor ts do occur . . Perfo rmed at: WB Not Available [facility] (Lab) [address], [place], [address], 10/31/2015 15:27:24 10/25/19 16 10/31/2015 pap, IG + CT/NG /TV test methodology: IGLPAP This liqui d based ThinP rep(R ) pap test was scree kalee with the use of an image guide tabitha gonzalez. Perfo rmed at: WB Not Available [facility] (Lab) [address] [facility], [place], [address], 10/31/2015 15:27:24 10/25/19 16 10/31/2015 pap, IG + CT/NG /TV comments NEGHPV The HPV DNA refle x crite etelvina were not met with this speci men resul t there fore, no HPV testi ng was perfo rmed. . Perfo rmed at: WB Not Available [facility] (Lab) [address] [facility], [place], [address], 10/31/2015 15:27:24 10/25/19 16 10/31/2015 pap, IG + CT/NG /TV chlamydia, nuc. acid Negati ve negati ve Perfo rmed at: =G Not Available [facility] (Lab) [address] [facility], [place], [address], 10/31/2015 15:27:24 10/25/19 16 10/31/2015 pap, IG + CT/NG /TV gonococcus, nuc. acid amp Negati ve negati ve Perfo rmed at: =G Not Available [facility] (Lab) [address] [facility], [place], [address], 10/31/2015 15:27:24 10/25/19 16 10/31/2015 pap, IG + CT/NG /TV trich vag by KRISTI Negati ve negati ve Perfo rmed at: =G Not Available [facility] (Lab) [address] [place], [address], 10/31/2015 15:27:24 02/10/20 16 02/11/2016 HIV (1+2) Ab scree n, serum HIV 4TH generation Non Reacti ve non reacti ve Not Available [facility] (Lab) [address] [place], [address], 02/11/2016 08:26:48 02/10/20 16 02/11/2016 CT + NG + TV, DNA, urine /swab chlamydia by KRISTI Negati ve negati ve Not Available [facility] (Lab) [address] [place], [address], 02/12/2016 01:24:55 02/10/20 16 02/11/2016 CT + NG + TV, DNA, urine /swab gonococcus by KRISTI Negati ve negati ve Not Available [facility] (Lab) [address] [place], [address], 02/12/2016 01:24:55 02/10/20 16 02/11/2016 CT + NG + TV, DNA, urine /swab trich vag by KRISTI Negati ve negati ve Not Available [facility] (Lab) [address] [place], [address], 02/12/2016 01:24:55 02/10/20 16 02/12/2016 RPR (rapi d plasm a reagi n), serum RPR Non Reacti ve non reacti ve Not Available [facility] (Lab) [address] [place], [address], 02/12/2016 04:21:25 02/10/20 16 02/12/2016 HBsAg (hepa titis B surfa ce Ag), serum HBsAg screen Negati ve negati ve Not Available [facility] (Lab) [address] [place], [address], 02/12/2016 04:29:25 07/17/19 17 07/16/2016 CBC w/ auto diff WBC 4.8 K/uL 3.4-10 .8 Not Available [facility] (Lab) [address] [place], [address], 07/16/2016 15:43:11 07/17/19 17 07/16/2016 CBC w/ auto diff red blood count 4.3 M/uL 4.2-5. 4 Not Available [facility] (Lab) [address] [place], [address], 07/16/2016 15:43:11 07/17/19 17 07/16/2016 CBC w/ auto diff hemoglobin 12.1 g/dL 11.5-1 5.5 Not Available [facility] (Lab) [address] [place], [address], 07/16/2016 15:43:11 07/17/19 17 07/16/2016 CBC w/ auto diff hematocrit 37.7 % 36.0-4 8.0 Not Available [facility] (Lab) [address] [place], [address], 07/16/2016 15:43:11 07/17/19 17 07/16/2016 CBC w/ auto diff MCV 88 fL 80-95 Not Available [facility] (Lab) [address] [place], [address], 07/16/2016 15:43:11 07/17/19 17 07/16/2016 CBC w/ auto diff MCH 28 pg 27-32 Not Available [facility] (Lab) [address] [place], [address], 07/16/2016 15:43:11 07/17/19 17 07/16/2016 CBC w/ auto diff MCHC 32 g/dL 32-36 Not Available [facility] (Lab) [address] [place], [address], 07/16/2016 15:43:11 07/17/19 17 07/16/2016 CBC w/ auto diff platelets 152 K/uL 155-37 9 low Not Available [facility] (Lab) [address] [place], [address], 07/16/2016 15:43:11 07/17/19 17 07/16/2016 CBC w/ auto diff RDW 12.6 % 11.5-1 4.5 Not Available [facility] (Lab) [address] [place], [address], 07/16/2016 15:43:11 07/17/19 17 07/16/2016 CBC w/ auto diff MPV 12.1 fL 8.9-12 .7 Not Available [facility] (Lab) [address] [place], [address], 07/16/2016 15:43:11 07/17/19 17 07/16/2016 CBC w/ auto diff neutrophils absolute 2.6 K/uL 1.4-7. 0 Not Available [facility] (Lab) [address] [place], [address], 07/16/2016 15:43:11 07/17/19 17 07/16/2016 CBC w/ auto diff lymphs (absolute) 1.5 K/uL 0.7-3. 1 Not Available [facility] (Lab) [address] [facility], [place], [address], 07/16/2016 15:43:11 07/17/19 17 07/16/2016 CBC w/ auto diff monocytes (absolute) 0.4 K/uL 0.1-0. 9 Not Available [facility] (Lab) [address] [place], [address], 07/16/2016 15:43:11 07/17/19 17 07/16/2016 CBC w/ auto diff eos (absolute) 0.3 K/uL 0.0-0. 4 Not Available [facility] (Lab) [address] [place], [address], 07/16/2016 15:43:11 07/17/19 17 07/16/2016 CBC w/ auto diff baso (absolute) 0.0 K/uL 0.1-0. 3 low Not Available [facility] ([facility]) [address] [place], [address], 07/16/2016 15:43:11 07/17/19 17 07/16/2016 CBC w/ auto diff neut % 53.6 % 40.0-7 4.0 Not Available [facility] ([facility]) [address] [place], [address], 07/16/2016 15:43:11 07/17/19 17 07/16/2016 CBC w/ auto diff lymphs % 30.5 % 14.0-4 6.0 Not Available [facility] ([facility]) [address] [place], [address], 07/16/2016 15:43:11 07/17/19 17 07/16/2016 CBC w/ auto diff mono % 8.6 % 4.0-12 .0 Not Available [facility] ([facility]) [address] [place], [address], 07/16/2016 15:43:11 07/17/19 17 07/16/2016 CBC w/ auto diff eos % 7 % <=5 high Not Available [facility] ([facility]) [address], [place], [address], 07/16/2016 15:43:11 07/17/19 17 07/16/2016 CBC w/ auto diff baso % 0.6 % 0.1-1. 1 Not Available [facility] ([facility]) [address] [place], [address], 07/16/2016 15:43:11 07/17/19 17 07/16/2016 urina lysis , dipst ick, refle x micro urhead1 URINAL YSIS, COMPLE TE Ur inalys is Gross Exam Not Available [facility] (Lab) [address] [place], [address], 07/16/2016 16:10:37 07/17/19 17 07/16/2016 urina lysis , dipst ick, refle x micro specific gravity 1.020 1.001- 1.035 Not Available [facility] ([facility]) [address] [place], [address], 07/16/2016 16:10:37 07/17/19 17 07/16/2016 urina lysis , dipst ick, refle x micro pH 7.5 5.0-7. 0 high Not Available [facility] ([facility]) [address] [place], [address], 07/16/2016 16:10:37 07/17/19 17 07/16/2016 urina lysis , dipst ick, refle x micro urine-color LT. YELLOW yellow abnormal Not Available [facility] ([facility]) [address], [place], [address], 07/16/2016 16:10:37 07/17/19 17 07/16/2016 urina lysis , dipst ick, refle x micro appearance CLEAR clear Not Available [facility] ([facility]) [address] [place], [address], 07/16/2016 16:10:37 07/17/19 17 07/16/2016 urina lysis , dipst ick, refle x micro WBC esterase NEGATI VE uL negati ve Not Available [facility] ([facility]) [address], [place], [address], 07/16/2016 16:10:37 07/17/19 17 07/16/2016 urina lysis , dipst ick, refle x micro protein TRACE mg/dL negati ve abnormal Not Available [facility] ([facility]) [address] [place], [address], 07/16/2016 16:10:37 07/17/19 17 07/16/2016 urina lysis , dipst ick, refle x micro glucose NEGATI VE mg/dL negati ve Not Available [facility] ([facility]) [address] [place], [address], 07/16/2016 16:10:37 07/17/19 17 07/16/2016 urina lysis , dipst ick, refle x micro ketones TRACE mg/dL negati ve abnormal Not Available [facility] (Lab) [address] [place], [address], 07/16/2016 16:10:37 07/17/19 17 07/16/2016 urina lysis , dipst ick, refle x micro occult blood NEGATI VE layo/u L negati ve Not Available [facility] (Lab) [address], [place], [address], 07/16/2016 16:10:37 07/17/19 17 07/16/2016 urina lysis , dipst ick, refle x micro bilirubin NEGATI VE negati ve Not Available [facility] (Lab) [address], [place], [address], 07/16/2016 16:10:37 07/17/19 17 07/16/2016 urina lysis , dipst ick, refle x micro urobilinogen 0.2 Not Available [facility] (Lab) [address] [place], [address], 07/16/2016 16:10:37 07/17/19 17 07/16/2016 urina lysis , dipst ick, refle x micro nitrite, urine NEGATI VE negati ve Not Available [facility] (Lab) [address] [place], [address], 07/16/2016 16:10:37 07/17/19 17 07/16/2016 type + scree n, serum ABO/Rh typing B Rh Positi ve Not Available [facility] (Lab) [address] [place], [address], 07/16/2016 16:29:58 07/17/19 17 07/16/2016 type + scree n, serum id-mts antbdy screen NEGATI VE Not Available [facility] (Lab) [address] [place], [address], 07/16/2016 16:29:58 07/17/19 17 07/16/2016 drug scree n, urine urine phencylclind in NEGATI VE negati ve Not Available [facility] ([facility]) [address] [place], [address], 07/16/2016 16:29:38 07/17/19 17 07/16/2016 drug scree n, urine urine cannabinoids NEGATI VE negati ve Not Available [facility] ([facility]) [address] [place], [address], 07/16/2016 16:29:38 07/17/19 17 07/16/2016 drug scree n, urine urine amphetamines NEGATI VE negati ve Not Available [facility] (Lab) [address] [place], [address], 07/16/2016 16:29:38 07/17/19 17 07/16/2016 drug scree n, urine urine cocaine NEGATI VE negati ve Not Available [facility] ([facility]) [address], [place], [address], 07/16/2016 16:29:38 07/17/19 17 07/16/2016 drug scree n, urine urine opiates NEGATI VE negati ve Not Available [facility] (Lab) [address] [place], [address], 07/16/2016 16:29:38 07/17/19 17 07/16/2016 drug scree n, urine urine barbiturates NEGATI VE negati ve Not Available [facility] ([facility]) [address] [place], [address], 07/16/2016 16:29:38 07/17/19 17 07/16/2016 drug scree n, urine urine benzo diazepin NEGATI VE negati ve Not Available [facility] ([facility]) [address] [place], [address], 07/16/2016 16:29:38 07/17/19 17 07/16/2016 drug scree n, urine udrscom This test provi dre only a scree ni suraj tical test resul t. A more speci fic alter kelsie chemi aria metho d must be order ed to obtai n a confi rmed suraj tical resul t. Not Available [facility] (Lab) [address], [place], [address], 07/16/2016 16:29:38 07/17/19 17 07/17/2016 HIV (1+2) Ab scree n, serum HIV 4TH generation Non Reacti ve non reacti ve Not Available [facility] (Lab) [address] [facility], [place], [address], 07/17/2016 06:16:20 07/17/19 17 07/17/2016 hemog lobin S (hbs) , prese nce, blood hemoglobin solubility Negati ve negati ve Since a varie ty of condi tions and other abnor mal hemog lobin s in addit ion to Hemog lobin S may give false -posi tive resul ts, posit emerald Hemog lobin Solub ility tests shoul d be confi rmed by hemog lobin fract ionat ion testi ng. Not Available [facility] (Lab) [address], [place], [address], 07/17/2016 14:27:07 07/17/19 17 07/17/2016 varic serjio- zoste r igg Ab scree n, serum varicella zoster IgG 656 index immune >165 Negat emerald <135 Equiv ocal 135 - 165 Posit emerald >165 A posit emerald resul t gener ally indic ates expos ure to the patho gen or admin istra tion of speci fic immun oglob ulins , but it is not indic ation of activ e infec tion or stage of disea se. Not Available [facility] (Lab) [address], [place], [address], 07/17/2016 14:27:44 07/17/19 17 07/17/2016 RPR (rapi d plasm a reagi n), quant itati ve, serum RPR Non Reacti ve non reacti ve Not Available [facility] (Lab) [address] [place], [address], 07/17/2016 14:27:45 07/17/19 17 07/17/2016 HBsAg (hepa titis B surfa ce Ag), confi rmati on, serum HBsAg screen Negati ve negati ve Not Available [facility] (Lab) [address] [place], [address], 07/17/2016 14:27:52 07/17/19 17 07/17/2016 rubel la igg Ab scree n, serum rubella antibodies, IgG 14.70 index immune >0.99 Non-i mmune <0.90 Equiv ocal 0.90 - 0.99 Immun e >0.99 Not Available [facility] (Lab) [address] [facility], [place], [address], 07/17/2016 14:27:52 07/17/19 17 07/17/2016 cultu re, urine urine culture, routine Final report Not Available [facility] (Lab) [address] [place], [address], 07/18/2016 00:20:05 07/17/19 17 07/17/2016 cultu re, urine result 1 LESS Cultu re shows less than 10,00 0 colon y formi ng units of bacte etelvina per daria liter of urine . This colon y count is not gener ally consi dered to be clini ben signi fican t. Not Available [facility] (Lab) [address] [place], [address], 07/18/2016 00:20:05 07/17/19 17 07/20/2016 CT + NG + TV, DNA, urine /swab chlamydia by KRISTI Negati ve negati ve Not Available [facility] (Lab) [address] [facility], [place], [address], 07/20/2016 08:51:18 07/17/1907/20/2016 CT + NG + TV, DNA, urine /swab gonococcus by KRISTI Negati ve negati ve Not Available [facility] ([facility]) [address], [place], [address], 07/20/2016 08:51:18 07/17/1907/20/2016 CT + NG + TV, DNA, urine /swab trich vag by KRISTI Negati ve negati ve Not Available [facility] ([facility]) [address], [place], [address], 07/20/2016 08:51:18 07/17/1907/27/2016 cf (cyst ic fibro sis) profi le interpretati on: No varian t detect ed. Not Available [facility] ([facility]) [address], [place], [address], 07/27/2016 18:10:35 07/17/1907/27/2016 cf (cyst ic fibro sis) profi le cystic fibrosis mutation 97 Commen t: RESUL TS: Negat emerald for the 97 mutat ions suraj zed INTER PRETA TION: This indiv idual is negat emerald for the mutat ions suraj zed. This negat emerald resul t may need furth er inter preta tion depen ding on the clini aria indic ation . This resul t reduc es but does not elimi kelsie the risk to be a CF renita er. COMME NTS: The detec tion rate varie s with [place] and is liste d below . The prese nce of an undet ected mutat ion in the CF gene canno t be ruled out. In the absen ce of famil y histo ry, the remai ni risk that a perso n with a negat emerald resul t could have at least one CF mutat ion is liste d in the table . If there is a famil y histo ry of CF, these risk figur es do not apply . As detai led infor arlen vargas this indiv idual 's famil y histo ry would permi t a more accur ate asses sment of this indiv idual 's risk to be a renita er of cysti c fibro sis, pleas e conta ct [facility] Jennifer ic Servi viktor at for a martina ed repor t. Mutat ion Detec tion Detec tion rates are based on mutat ion Rates among Ethni c frequ encie s in patie nts affec teri with Group s cysti c fibro sis. Among indiv idual s with an atypi aria or mild prese ntati on (e.g. conge nital absen ce of the vas defer ens, pancr eatit is) detec tion rates may vary from those provi ded here. Renita er risk reduc tion when no famil y Detec tion [place]ni city histo ry Rate Refer ences Afric an to 81% Jennifer in Med 3:168 , 2000 Ameri can [place] nazi 04/16 to 97% Am J Hum Jennifer 51:95 1,199 4 Jewis h - Not Insuf ficie nt data Provi ded [place] 04/15 to 93% Jennifer in Med 3:168 ,2000 ; Jennifer in Med 4:90, 2001 Hispa dejon to 78% Jennifer in Med 3:168 ,2000 ; www.d .[place] .gov/ pc/ gdb /html /PDE/ CFStu dy.ht m Jewis h, - Varie s by Jennifer Testi joey 5:47, 2000 non-A shken amy count ry Jennifer Testi joey, 1:35, 1996 of origi n Other or Mixed - Not Detec tion rate not [facility]ni [facility] Provi ded deter mined and [facility] This inter preta tion is based on the clini aria and famil y relat ionsh ip infor matio n provi ded and the curre nt under stand ing of the molec ular jennifer ics of this condi tion. MUTAT IONS SURAJ ZED: delta F311 3199d el6 CFTRd ele2, 3 R334W * delta F508* 3659d elC* D1152 H R347H delta I507* 3667d el4 E60X R347P * 1078d elT 3791d elC E92X R352Q 1288i nsTA 3849+ 10kbC to T* G178R R553X * 1677d elTA 3876d Erwin G330X R560T * 1717- 1G to A* 3905i nsT G480C R709X 1812- 1G to A 394de lTT G542X * R75X 1898+ 1G to A* 4016i nsT G551D * R764X 1898+ 5G to T 405+1 G to A G85E* S1196 X 1949d el84 405+3 A to C K710X S1251 N 2043d elG 406-1 G to A L206W S1255 X 2055d el9 to A 444de lA M1101 K S364P 2105d el13i ns5 457TA T to G N1303 K* S549N 2108d Erwin 574de lA P574H S549R T to G 2143d elT 621+1 G to T* Q1238 X T338I 2183d elAA to G 663de lT Q359K /T360 K V520F 2184d Erwin* 711+1 G to T* Q493X W1089 X 2184i nsA 711+5 G to A Q552X W1204 X 2307i nsA 712-1 G to T Q890X W1282 X* 2789+ 5G to A* 935de lA R1066 C Y1092 X C to A 2869i nsG 936de lTA R1158 X Y1092 X C to G 3120+ 1G to A* A455E * R1162 X* Y122X 3120G to A A559T R117C 3171d elC C524X R117H * *ACOG /ACMG recom belle d METHO DS/LI MITAT IONS: DNA is isola teri from the sampl e and teste d for the 97 CF mutat ions on the [facility] rs[employer] Array [employer] or[employer] ([employer] nex). Regio ns of the CFTR gene are ampli fied enzym atica lly and subje cted to a solut ion-p hase multi plex allel e-spe cific prime r exten som with subse quent hybri dizat ion to a bead array and fluor escen ce detec tion. Polym orphi sms F508C , I506V and I507V are inclu ded in this panel to rule out false posit emerald delta F508 homoz ygote s. Refle x testi ng of 5T is inclu ded in the panel for R117H inter preta tion. False posit emerald or negat emerald resul ts may occur for reaso ns that inclu de jennifer ic varia nts, blood trans fusio ns, bone marro w trans plant ation , shauna eous repre senta tion of famil y relat ionsh ips or conta minat ion of a sampl e with mater nal cells . The assay provi dre infor matio n inten ded to be used for renita er scree ni in adult s of repro ducti ve age, as an aid in newbo rn scree ni, and as a confi rmato ry test for anoth er medic ally estab lishe d diagn osis in newbo rns and child mundo. The test is not inten ded for use in diagn ostic testi ng, pre-i mplan tatio n scree ni, or for any stand -niharika e diagn ostic purpo ses witho ut confi rmati on by anoth er medic ally estab lishe d diagn ostic produ ct or proce dure. Resul ts Relea sed By: Rigo sierra, Ph.D. , [facility] tor Repor t Relea sed By: Rigo sierra, Ph.D. , [facility] tor Not Available [facility] (Lab) [address] [place], [address], 07/27/2016 18:10:35 06/15/1906/14/2024 urina lysis , dipst ick Leukocytes Large Not Available In-Offi ce Order Internal Use Only DO Not Attach Compendium DO Not Attach Compendium, Do Not Delete/merge, 06/14/2024 16:46:57 06/15/1906/14/2024 urina lysis , dipst ick Nitrite positi ve Not Available In-Office Order Internal Use Only DO Not Attach Compendium DO Not Attach Compendium, Do Not Delete/merge, 06/14/2024 16:46:57 06/15/19 25 06/14/2024 urina lysis , dipst ick Urobilinogen 1 Not Available In-Of fice Order Internal Use Only DO Not Attach Compendium DO Not Attach Compendium, Do Not Delete/merge, 06/14/2024 16:46:57 06/15/19 25 06/14/2024 urina lysis , dipst ick Protein 300 Not Available In-Office Order Internal Use Only DO Not Attach Compendium DO Not Attach Compendium, Do Not Delete/merge, 06/14/2024 16:46:57 06/15/19 25 06/14/2024 urina lysis , dipst ick pH 6.0 Not Available In-Office Order Internal Use Only DO Not Attach Compendium DO Not Attach Compendium, Do Not Delete/merge, 06/14/2024 16:46:57 06/15/19 25 06/14/2024 urina lysis , dipst ick Blood Large Not Available In-Office Order Internal Use Only DO Not Attach Compendium DO Not Attach Compendium, Do Not Delete/merge, 06/14/2024 16:46:57 06/15/19 25 06/14/2024 urina lysis , dipst ick Specific Arnold 1.030 Not Available In-Off ice Order Internal Use Only DO Not Attach Compendium DO Not Attach Compendium, Do Not Delete/merge, 06/14/2024 16:46:57 06/15/19 25 06/14/2024 urina lysis , dipst ick Ketone Trace Not Available In-Office Order Internal Use Only DO Not Attach Compendium DO Not Attach Compendium, Do Not Delete/merge, 06/14/2024 16:46:57 06/15/19 25 06/14/2024 urina lysis , dipst ick Bilirubin Small Not Available In-Offic e Order Internal Use Only DO Not Attach Compendium DO Not Attach Compendium, Do Not Delete/merge, 06/14/2024 16:46:57 06/15/19 25 06/14/2024 urina lysis , dipst ick Glucose Negati ve Not Available In-Office Order Internal Use Only DO Not Attach Compendium DO Not Attach Compendium, Do Not Delete/merge, [id number] 06/14/2024 16:46:57 06/15/19 25 06/14/2024 urina lysis , dipst ick Appearance Cloudy Not Available In-Offi ce Order Internal Use Only DO Not Attach Compendium DO Not Attach Compendium, Do Not Delete/merge, [id number] 06/14/2024 16:46:57 06/15/19 25 06/14/2024 urina lysis , dipst ick Color Red Not Available In-Office Order Internal Use Only DO Not Attach Compendium DO Not Attach Compendium, Do Not Delete/merge, [id number] 06/14/2024 16:46:57 08/13/19 17 08/11/2016 US, obste tric, 1st trime ster No observ ation record ed. Not Available 2016 15:16:19 Result Notes None recorded. Problems Name Problem SNOMED Code Status Onset Date Resolution Date Notes Provider Name and Address Organization Details Recorded Time Bacterial vaginosis 558165505 Active Rosana Wood[place] null, [place] - [facility] 6 10:21:58 Vaginitis 30960341 Active [place] [facility] 6 10:21:58 Herpesviru s infection 03077046 Active Rosana [place] [facility] 6 10:21:58 Genital herpes simplex 54382000 Active Rosana [place] [facility] 6 10:21:58 Increased frequency of urination 539640939 Active Rosana [place] [facility] 6 10:21:58 Herpes simplex 50331361 Active Rosana [place] [facility] 6 10:21:58 Vaginal discharge 461597615 Active Rosana [place] [facility] 6 10:21:58 Chlamydial infection 999556101 Active Rosana [place] [facility] 6 10:21:58 Cervicovag inal cytology: Low grade squamous intraepith elial lesion 861286315 Active Rosana [place], [place] - [facility] 6 15:06:55 89873236 Completed 201606/14/2024 Martínez Evans MA null, [facility] 5 16:30:34 Notes:vaginal odor x 1 week no itching. Sexually active 1 partner. Condom use 100%, no STI history. Wants BC Problem Notes None recorded. Procedures Surgical History Date Name Laterality Status Provider Name and Address Organization Details Recorded Time 5 Depo Injection completed Geo Gee MA [facility] 02/12/2015 12:39:13 5 Depo Injection completed Geo Gee MA [facility] 11/21/2014 12:13:30 5 Depo Injection completed Geo Gee MA [facility] 08/20/2014 15:28:20 5 Depo Injection completed Geo Gee MA [facility] 05/28/2014 15:54:31 Imaging Results Imaging Date Name Status LastModified by Organiz ation Details LastModified Time 08/11/2016 US, obstetric, 1st trimester completed Information not available 08/12/2016 15:16:19 Procedure Notes None recorded. Medical Equipment None Reported. Allergies No known drug allergies Medications Name Sig Start Date Stop Date Status Note LastModified by Organization Details LastModified Time acyclovir 800 mg tabs active Not Available Not Available Not Available medroxyproge sterone acetate 150 mg/ml susp active Not Available Not Available N ot Available fluconazole 100 mg tablet active Not Available Not Available Not Available fluconazole 150 mg tablet Take 1 tablet by oral route for 1 day. 2024 active Not Available Not Available Not Avai lable Claritin 10 mg tablet Take 1 tablet every day by oral route for 30 days. 2016 active Not Available Not Available Not Avai lable Pyridium 200 mg tablet Take 1 tablet 3 times a day by oral route for 2 days. 2024 active Not Available Not Available Not Avai lable metronidazol e 500 mg tablet Take 1 tablet twice a day by oral route for 7 days. active Not Available Not Available No t Available acyclovir 400 mg tablet Take 1 tablet every day by oral route for 30 days. 2014 active Not Available Not Available Not Avai lable ciprofloxaci n 500 mg tablet active Not Available Not Available Not Available acyclovir 800 mg tablet Take 1 tablet every day by oral route for 30 days. active Not Available Not Available No t Available DOK 100 mg capsule active Not Available Not Available Not Available phenazopyrid ine 100 mg tablet active Not Available Not Available Not Available hydrocortiso ne 1 % topical cream active Not Available Not Available Not Available cephalexin 500 mg capsule active Not Available Not Available Not Available ibuprofen 600 mg tablet active Not Available Not Available Not Available medroxyproge sterone 150 mg/mL intramuscula r suspension Inject 150 mg every 3 months by intramuscul ar route for 90 days. active Not Available Not Available No t Available amoxicillin 500 mg-potassium clavulanate 125 mg tablet active Not Available Not Available Not Available azithromycin 500 mg tablet Take 2 tablets as needed by oral route for 1 day. active Not Available Not Available N ot Available nitrofuranto in monohydrate/ macrocrystal s 100 mg capsule Take 1 capsule every 12 hours by oral route as directed for 5 days. 2024 active Not Available Not Available Not Avai lable PNV-Select 27 mg-1 mg tablet Take 1 tablet every day by oral route for 60 days. 2016 active Not Available Not Available Not Avai lable Take Action 1.5 mg tablet Take 1 tablet by oral route for 1 day. active Not Available Not Available N ot Available Vol-Plus 27 mg iron-1 mg tablet active Not Available Not Available Not Available Vitals Date Recorded Body height Body mass index (BMI) Body weight Oxygen saturation Oxygen saturation in Arterial blood by Pulse oximetry Heart rate Respiratory rate Body temperature Systolic blood pressure Diastolic blood pressure Provider Name and Address Organization Details Last Updated DateTime 5 157.48 cm 22.8 kg/m2 31428.8 9 g 98 % 98 % 98 /min 18 /min 98.1 [degF] 110 mm[Hg] 72 mm[Hg] Martínez Evans MA [place] - [facility] 5 16:39:15 Date Recorded Body weight Body mass index (BMI) Body height Systolic blood pressure Diastolic blood pressure Provider Name and Address Organization Details Last Updated DateTime 11/06/2015 62460.34 544 g 20.5 kg/m2 157.48 cm 100 mm[Hg] 80 mm[Hg] Jesus Arenas [facility] 6 14:58:47 Date Recorded Body height Body weight Body mass index (BMI) Systolic blood pressure Diastolic blood pressure Provider Name and Address Organization Details Last Updated DateTime 02/10/2016 157.48 cm 37316.94 g 20.7 kg/m2 100 mm[Hg] 60 mm[Hg] Geo Gee MA [facility] 6 16:27:24 Date Recorded Body height Body mass index (BMI) Systolic blood pressure Diastolic blood pressure Provider Name and Address Organization Details Last Updated DateTime 07/16/2016 157.48 cm 21.4 kg/m2 102 mm[Hg] 60 mm[Hg] Mimi Steele MA [facility] 07/16/2016 12:15:44 Date Recorded Body weight Provider Name an d Address Organization Details Last Updated DateTime 07/16/2016 [id number] tracey Woodall [facility] 07/17/19 17 12:57:25 Date Recorded Body height Body mass index (BMI) Systolic blood pressure Diastolic blood pressure Provider Name and Address Organization Details Last Updated DateTime 08/07/2016 157.48 cm 21.2 kg/m2 96 mm[Hg] 62 mm[Hg] Mimi Steele MA [facility] 08/07/2016 10:59:27 Date Recorded Body weight Provider Name an d Address Organization Details Last Updated DateTime 08/07/2016 [id number] tracey Rosana Woodall [facility] 7 11:35:37 Social History Question Answer Notes LastModified by Organizat ion Details LastModified Time Tobacco Smoking Status Never Smoker KRAIG Guzman, [facility] 06/14/2024 16:31:27 What Is Your Level Of Alcohol Consumption? Occasional Information not available 06/14/2024 Are You Blind Or Do You Have Difficulty Seeing? No Information not available 06/14/2024 What Is Your Level Of Caffeine Consumption? Occasional Information not available 06/14/2024 Are You Deaf Or Do You Have Serious Difficulty Hearing? No Information not available 06/14/2024 What Type Of Diet Are You Following? REGULAR Information not available 06/14/2024 Are There Any Guns Present In Your Home? No Information not available 06/14/2024 What Was The Date Of Your Most Recent Tobacco Screening? 06/14/2024 Information not available 06/14/2024 Do You Use Your Seat Belt Or Car Seat Routinely? Yes Information not available 06/14/2024 Do You Have Smoke And Carbon Monoxide Detectors In Your Home? Yes Information not available 06/14/2024 Are You Passively Exposed To Smoke? No Information not available 06/14/2024 Do You Feel Stressed (tense, Restless, Nervous, Or Anxious, Or Unable To Sleep At Night)? [id number] Information not available 06/14/2024 Do You Use Any Illicit Or Recreational Drugs? Yes Marijuana Information not available 06/14/2024 Do You Use Sunscreen Routinely? No Information not available 06/14/2024 Has Tobacco Cessation Counseling Been Provided? No Information not available 06/14/2024 Do You Or Have You Ever Used Any Other Forms Of Tobacco Or Nicotine? No Information not available 06/14/2024 Sex: Female Functional Status Question Answer Note LastModified by Organization D etails LastModified Time Are you able to care for yourself? Yes Information n ot available 06/14/2024 What is your exercise level? None Information not available 06/14/2024 Mental Status None recorded. Family History Relationship Description Onset Age of this Age Resolved Age Notes LastModified by Organization Details LastModified Time Mother Diabetes mellitus [email or web address] Not available 2015 10:10:07 Medical History Condition Response Other Y High Blood Pressure N Breast Cancer N Thyroid Problems N Kidney or Bladder Problems N GI Problems N Depression N Blood Clots N Lung Disease N Acne N Breast Problem N Eating Disorder N Anemia N Anesthesia Complications N Headaches/Migraines N Anxiety Disorder N Diabetes N Ovarian Cancer N Muscle, Joint, or Bone Problems N Blood Transfusions N Seizures/Epilepsy N Polyps N Infertility N Acid Reflux (GERD) N Cancer N Abuse/Domestic Violence N Asthma N Endometriosis N High Cholesterol N Hepatitis N Liver Disease N Heart Disease N Pre-Eclampsia N Osteoporosis N Gynecological History Statement/Question Response Flow Moderate Date of LMP 06/13/2024 STIs/STDs N HPV Vaccine N Duration of Flow (days) 4 Most Recent Mammogram Age at Menarche 15 Current Control Method None Age at First Child 19 If Post Menopausal, Age at Menopause Frequency of Cycle (Q days) 20 Sexually Active? Y Menses Monthly Y Sexual Problems? N LMP Definite Desired Control Method Condoms Obstetrics History GPAL:G 2 P 0 0 1 0 Type Value Full Term 0 Spontaneous 1 Living 0 Total 2 Past Encounters Encounter ID Performer Location Encounter Start Date Encounter Closed Date Diagnosis/Indication Diagnosis SNOMED-CT Code Diagnosis ICD10 Code Diagnosis Note [id number] Geo Gee MA [facility] (AUTO SERVICER) [address] [place] [address] 04/30/2014 12:19:12 04/30/2014 13:01:19 Bacterial vaginosis 391245384 Uses contraception [id number] [facility] (AUTO SERVICER) [address] [place] [address] 05/28/2014 14:46:35 05/28/2014 16:41:43 Uses contraception 29145966 Vaginitis 65444311 [id number] [facility] (AUTO SERVICER) [address] [place] [address] 06/20/2014 10:50:16 06/20/2014 12:55:20 [facility]pesvirus [facility] 66303521 [id number] [facility] [address] [place] [address] 07/03/2014 15:03:59 07/03/2014 15:44:27 Herpesvirus infection 62199995 [id number] [facility] (AUTO SERVICER) [address] [place] [address] 08/20/2014 14:48:53 08/20/2014 15:43:48 Uses contraception 41082801 Genital he rpes simplex 02354196 [id number] [facility] (AUTO SERVICER) [address] [place] [place] [address] 11/20/2014 10:24:20 11/20/2014 11:04:45 Uses contraception [id number] [facility] [address] [place] [address] 11/21/2014 11:44:47 11/21/2014 12:40:38 Uses contraception 94287338 [id number] Rosana Woodall [facility] (AUTO SERVICER) [address] [place] [address] 02/12/2015 12:02:07 02/12/2015 12:42:27 Uses contraception 41707787 Z30.42 Increased frequency of urination 902825142 R35.0 Herpes simplex 70064786 B00.9 [id number] Rosana Woodall [facility] (AUTO SERVICER) [address] [place] [address] 04/01/2015 10:22:47 04/01/2015 11:34:14 Herpes simplex 40223810 B00.9 Vaginal discharge 471788 006 N89.8 [id number] Rosana Woodall [facility] (AUTO SERVICER) [address] [place] [address] 04/04/2015 14:40:03 04/04/2015 15:19:32 Chlamydial infection 636535861 A74.9 [id number] Rosana Woodall [facility] (AUTO SERVICER) [address] [place] [address] 05/07/2015 11:16:42 05/07/2015 12:48:30 High risk sexual behavior 898067755 Z72.51 [id number] Rosana Woodall [facility] (AUTO SERVICER) [address] [place] [place] [address] 07/10/2015 11:55:53 07/10/2015 12:45:05 High risk sexual behavior 519401145 Z72.51 [id number] Daniel Whitt PA-C [place] [address] [facility] [address] [place] [address] 07/19/2015 13:45:25 07/19/2015 15:14:52 Vaginal discharge 782263077 N89.8 [id number] Rosana Woodall [facility] (AUTO SERVICER) [address] [place] [address] 08/07/2015 11:38:34 08/07/2015 12:20:55 Vaginitis 82775177 N76.0 [id number] [facility] [address] [place] [address] 10/25/2015 09:53:15 10/25/2015 11:29:55 Gynecologic examination 92064374 Z01.419 [id number] [facility] (AUTO SERVICER) [address] [place] [place] [address] 11/06/2015 14:46:57 11/06/2015 16:49:12 Cervicovaginal cytology: Low grade squamous intraepithelial lesion 839372245 R87.924 [id number] [facility] (AUTO SERVICER) [address] [place] [place] [address] 02/10/2016 16:20:20 02/10/2016 17:39:53 Vaginitis and vulvovaginitis 858549675 N76.0 High risk sexual behavior 209041546 Z72.51 [id number] [facility] (AUTO SERVICER) [address] [place] [place] [address] 07/16/2016 11:54:24 07/16/2016 13:46:37 [id number] Z33.1 test positive 630024046 Z32.01 [id number] [facility] (AUTO SERVICER) [address] [place] [place] [address] 08/07/2016 10:46:41 08/07/2016 12:13:29 Normal 18743441 Z34.91 [id number] MARIOLA PEREZ NP [facility] [address] 06/14/2024 16:27:02 06/14/2024 17:08:16 Body mass index 20-24 - normal 038061252 Z68.22 Acute urin severino tract infection 219185776 N39.0 Venereal d isease screening 880592135 Z11.3 Health Concerns Section Related Observation LastModified by Organization Detai ls LastModified Time None Recorded Concern Status LastModified by Organization Details LastModified Time None Recorded Advance Directives Directive None Recorded Payers Encounter Date Sequence Insurance Name Policy Number Policy Castellanos Covered Member ID Castellnaos Member ID Guarantor Name 11/06/2015 [facility] Shanti Shurn [id number] Shanti Shurn 02/10/2016 [facility]ICA[facility] H[facility] Shanti Shurn [id number] Shanti Shurn 07/16/2016 [facility]MEDICA[facility] HMO) Shanti Shurn [id number] Shnati Shurn 08/07/2016 [facility]MEDICA[facility] H[facility]) Shanti Shurn [id number] Shanti Shurn 06/14/2024 1 *SELF PAY* Vashti Roger Notes Date Note Type Note Provider Name and Address Organization Details Recorded Time 07/16/2016 text/html confirmation Rosana Talisha workman, [facility] 07/16/2016 13:00:58 06/14/2024 text/html 28 year old laura walker presents to IC with complaints of urinary frequency, dysuria, vaginal discharge and lower pelvic pressure. She states she noticed these symptoms yesterday. She denies any fever, rash, chest pain, shortness of breath, vaginal odor, sores/lesions. She states she about to start her menstrual cycle and has had some spotting. She denies any back pain. MARIOLA PEREZ NP Attn: [address]ing[address] [place], [address], [facility] [place] 06/14/2024 17:16:39 OBGyn Episode Ob Episode Information Episode Created Date Number of Fetuses Patient Bloodtype Patient rh Status Prepregnancy Weight lbs Domestic Partner Domestic Partner Phone Father Name [employer] Instructor Status 07/17/19 17 1 B Positive CLOSED Fetus Data First Name Last Name Admitted to NICU Weight (g) Sex Living Outcome Pediatric Complications Fetus ID Race Codes Race Delivery Type [id number] Joseph Calculation Initial Joseph Date Initial Exam Date Initial Exam Provider Initial Ultrasound Date Last Menstrual Period Date Ultra Sound Weeks Gestation 03/08/2017 07/16/2016 08/11/2016 05/31/2016 10 Eighteen To Twenty Week Joseph Update Ultra Sound Date Fundal Height At Umbil Quickening Date Ultra Sound Latest Weeks Gestation Final Joseph Confirmed By Final Joseph Confirmed Date Final Joseph Date Ultra Sound Latest Days Gestation 0 08/12/2016 03/08/20 17 0 Pre- Flowsheet Flowsheet Date 07/16/2016 Polo Score Blood Edema Fundus Height Fundus Units Glucose Ketones Leukocytes Nitrite Labor Signs Protein Cervic Dilation Cervic Effacement Cervic Station Type Weight in lbs Pre/Post Dialysis Refused 117.300528831603 BP Diastolic BP Location Tested BP Systolic BP Type 60 102 sitting Fetus Heart Rate Present Fetus Movement Comments 20 y.o. SAB x 1 here fr om confirmation. Had confirmation with [facility]. Denies problems. Ectopic precautions. panel and PNV today. Pt. to RTC in 3 weeks for NOB and u/s scheduling. Flowsheet Date 08/07/2016 Polo Score Blood Edema Fundus Height Fundus Units Glucose Ketones Leukocytes Nitrite Labor Signs Protein Cervic Dilation Cervic Effacement Cervic Station neg none negative Type Weight in lbs Pre/Post Dialysis Refused 116.944930532099 BP Diastolic BP Location Tested BP Systolic BP Type 62 96 sitting Fetus Heart Rate Present Fetus Movement Comments NOB here for care. Reviewed labs to be wnl. 1 pound weight loss. Pt. had been taking OTC anti nausea supplement from [facility] which helped with nausea. Preferred u/s scheduling at [facility]. Pt. to RTC in 2 weeks, first trimester screen then. Flowsheet Date 06/14/2024 Polo Score Blood Edema Fundus Height Fundus Units Glucose Ketones Leukocytes Nitrite Labor Signs Protein Cervic Dilation Cervic Effacement Cervic Station Type Weight in lbs Pre/Post Dialysis Refused Weight 124.884031587330 BP Diastolic BP Location Tested BP Systolic BP Type 72 L arm 110 sitting Fetus Heart Rate Present Fetus Movement Comments Menstrual History Last Menstrual Date Menses Monthly On Bcp Conception Prior Menses Frequency Hcg Plus Date Menarche Onset Age 0305/31/2016 false 14 Genetic Screening And Infection History Question Response Note Patient's Age Will Be 35 Yea rs Or Older At Estimated Date of Delivery false Thalassemia (Macedonian, Sami, Mediterranean, Or Background): MCV < 80 false Neural Tube Defect (Meningom yelocele, Spina Bifida, Or Anencephaly) false Congenital Heart Defect false Down Syndrome false Ameya-Sachs (eg, Orthodox, Cajun, Algerian-Barney) f alse Christina Disease false Sickle Cell Disease Or Trait () false Hemophilia Or Other Blood Disorders false Muscular Dystrophy false Cystic Fibrosis false Goodwin's Chorea false Mental Retardation/Autism false If Yes, Was Person Tested For Fragile X? false Other Inherited Genetic Or Chromosomal Disorder false Maternal Metabolic Disorder (eg, Type 1 Diabetes , PKU) false Patient Or Baby's Father Had A Child With Defects Not Listed Above false Recurrent Loss, Or A Stillbirth true SAB Medications (including Suppl ements, Vitamins, Herbs, OTC Drugs), Illicit/Recreational Drugs, Alcohol true Bendryl If Yes, Agent(s) And Strength/Dosage false Any Other Genetic History false Live With Someone With TB Or Exposed To TB false Patient Or Partner Has History Of Genital Herpes false Rash Or Viral Illness Since Last Menstrual Perio d false History Of STD, Gonorrhea, Chlamydia, HPV, Syphi lis true Chlamydia Other Infection History false Delivery Information Delivery Date Delivery Type Labor Anesthesia Weeks Gestation Incision Type Labor Labor Length Hrs Delivered By Post Complications Tubal Sterilization Discharge Date Comments Discharge Information Feeding Method Contraceptive Method Maternal HG B and HCT Levels
--- OUTSIDE RECORDS SUMMARY | 2024-06-16 09:10 | XMS_ITS | Data Portability ---
Author Organization [employer] , [facility] Address [address] [place] [address] Care Team Providers Care Table Games Floor Supervisor Name Role Phone [facility] Furnace Combustion Analyst Assessment Encounter Date Assessment Date Assessment LastModified by Organization Details LastModified Time 08/27/2022 08/27/2022 Pt is a 27 yo F here today for Infection/STI testing. Discussed the various types of Infections and STIs, related symptoms and the potential consequences (including effects on fertility) of STI. Reviewed ways to limit exposure and prevention techniques. POC SureSwab Would like STI blood work Last PAP was 06/2019. Denies wanting PAP today- will RTC. [email or web address] Not available 08/27/2022 22:58:08 Plan of Treatment Reminders Order Date Submit Date Provider Last Modified By Organization Details Last Modified Time Details Appointments None recorded. Lab bacterial vaginosis + vaginitis panel, vaginal 2024 025 [facility], [address] [place], [address], 5 09:18:06 bacterial vaginosis + vaginitis panel, vaginal 2023 024 SALLIE [facility], [address] [place], [address], 4 15:12:28 unlisted lab - Pap reflex hold 2023 024 tena pinto [facility], [address] [place], [address], 5 15:43:49 pap, LB 2023 024 [facility], [address] [facility], [place], [address], 4 09:49:40 unlisted lab - STD screening ([facility]) 2023 024 [facility], [address] [place], [address], 4 12:06:13 bacterial vaginosis + vaginitis panel, vaginal 2023 024 [facility], [address] [place], [address], 4 14:27:39 bacterial vaginosis + vaginitis panel, vaginal 2022 023 [facility], [address] [place], [address], 3 12:57:34 unlisted lab - STD screening ([facility]) 2022 023 [facility], [address] [place], [address], 3 12:42:05 bacterial vaginosis + vaginitis panel, vaginal 2022 023 [facility], [address] [place], [address], 3 14:11:30 Referral None recorded. Procedures None recorded. Surgeries None recorded. Imaging None recorded. Medication Orders Plan B One-Step 1.5 mg tablet 2024 025 [facility] #[id number], [address] [facility], [place], [place], [id number], 5 16:27:33 fluconazole 150 mg tablet 2022 023 [id number] [facility] #[id number], [address] [place], [place], [id number], 16:00:53 Patient TargetsNo targets recorded. Patient Instructions Encounter Date Encounter Id Patient Instructions Last Modified By Organization Details Last Modified Time 08/27/2022 [id number] exposure to sexually transmitted infections: care instructions [email or web address] Not available 08/27/2022 17:17:12 03/01/2024 [id number] body mass index: care instructions bnotzke Not available 03/01/2024 16:19:50 A healthy lifestyle: care instructions bnotzke Not available 03/01/2024 16:19:50 Following the [employer]: Care Instructions [email or web address] Not available 03/01/2024 16:19:51 exercise program : getting started bnotzke Not available 03/01/2024 16:19:51 contraception information bnotzke Not available 03/01/2024 16:19:51 Reason for Referral None Reported. Results Created Date Observation Date Name Description Value Unit Range Abnormal Flag Note LastModifiedBy Organization Detail LastModifiedTime 05/21/1905/21/2022 VAGIN ITIS PLUS STD PANEL bacterial vaginosis BV neg negati ve normal Not Available [facility] [address] [place] [address], [address], 05/21/2022 14:11:30 05/21/19 23 05/21/2022 VAGIN ITIS PLUS STD PANEL emery species C. spp neg negati ve normal Not Available [facility] [address] [place] [address], [address], 05/21/2022 14:11:30 05/21/19 23 05/21/2022 VAGIN ITIS PLUS STD PANEL emery glabrata C. gla neg negati ve normal Not Available [place], [address], 05/21/2022 14:11:30 05/21/19 23 05/21/2022 VAGIN ITIS PLUS STD PANEL trichomonas vaginalis CV/TV TRICH neg negati ve normal Not [place], [address], 05/21/2022 14:11:30 05/21/19 23 05/21/2022 VAGIN ITIS PLUS STD PANEL chlamydia trachomatis CT neg negati ve normal This repor t is inten ded for us in clini kristyn monit oring and manag ement of [facility]. It is not inten ded for use in medic al- gal appli catio n. Not Available [address], [address], 05/21/2022 14:11:30 05/21/19 23 05/21/2022 VAGIN ITIS PLUS STD PANEL neisseria gonorrhoeae GC neg negati ve normal This repor t is inten ded for us in clini kristyn monit oring and manag ement of [facility] n[facility]. It is not inten ded for use in medic al-[facility] appli catio n. Not Available [address], [address], 05/21/2022 14:11:30 08/28/19 23 08/28/2022 STD SCREE NI ([facility] ) hep BS Ag Non-Re active non-re active normal Not Available [address], [address], 08/28/2022 12:42:05 08/28/19 23 08/28/2022 STD SCREE NI ([facility] ) hep C Ab Non-Re active non-re active normal Not Available [address], [address], 08/28/2022 12:42:05 08/28/19 23 08/28/2022 STD SCREE NI ([facility] ) HIV 1/2 Ag/Ab Non-Re active non-re active normal Not Available [address], [address], 08/28/2022 12:42:05 08/28/19 23 08/28/2022 STD SCREE NI ([facility] ) syphilis Ab Non-Re active non-re active normal Not Available [facility] [address] [place] [address], [address], 08/28/2022 12:42:05 08/28/19 23 08/28/2022 VAGIN ITIS PLUS STD PANEL bacterial vaginosis BV POS negati ve abnormal Not Available [address], [address], 08/28/2022 12:57:34 08/28/19 23 08/28/2022 VAGIN ITIS PLUS STD PANEL emery species C. spp neg negati ve normal Not Available [address], [address], 08/28/2022 12:57:34 08/28/19 23 08/28/2022 VAGIN ITIS PLUS STD PANEL emery glabrata C. gla neg negati ve normal Not Available [address], [address], 08/28/2022 12:57:34 08/28/19 23 08/28/2022 VAGIN ITIS PLUS STD PANEL trichomonas vaginalis CV/TV TRICH neg negati ve normal Not Available [address], [address], 08/28/2022 12:57:34 08/28/19 23 08/28/2022 VAGIN ITIS PLUS STD PANEL chlamydia trachomatis CT neg negati ve normal This repor t is inten ded for us in clini kristyn monit oring and manag ement of patie nts. It is not inten ded for use in medic al-le gal appli catio n. Not Available [facility] [address] [place] [address], [address], 08/28/2022 12:57:34 08/28/19 23 08/28/2022 VAGIN ITIS PLUS STD PANEL neisseria gonorrhoeae GC neg negati ve normal This repor t is inten ded for us in clini kristyn monit oring and manag ement of patie nts. It is not inten ded for use in medic al-le gal appli catio n. Not Available [address], [address], 08/28/2022 12:57:34 04/29/19 24 04/30/2023 STD SCREE NI ([facility] ) hep BS Ag Non-Re active non-re active normal Not Available [address], [address], 04/30/2023 12:06:13 04/29/19 24 04/30/2023 STD SCREE NI ([facility] ) hep C Ab Non-Re active non-re active normal Not Available [address], [address], 04/30/2023 12:06:13 04/29/19 24 04/30/2023 STD SCREE NI ([facility] ) HIV 1/2 Ag/Ab Non-Re active non-re active normal Not Available [address], [address], 04/30/2023 12:06:13 04/29/19 24 04/30/2023 STD SCRENona NAPIERG ([facility] ) syphilis Ab Non-Re active non-re active normal Not Available [address], [address], 04/30/2023 12:06:13 04/29/19 24 04/30/2023 VAGIN ITIS PLUS STD PANEL bacterial vaginosis BV POS negati ve abnormal Not Available [address], [address], 04/30/2023 14:27:39 04/29/19 24 04/30/2023 VAGIN ITIS PLUS STD PANEL emery species C. spp POS negati ve abnormal Not Available [address], [address], 04/30/2023 14:27:39 04/29/19 24 04/30/2023 VAGIN ITIS PLUS STD PANEL emery glabrata C. gla neg negati ve normal Not Available [address], [address], 04/30/2023 14:27:39 04/29/19 24 04/30/2023 VAGIN ITIS PLUS STD PANEL trichomonas vaginalis CV/TV TRICH neg negati ve normal Not Available [address], [address], 04/30/2023 14:27:39 04/29/19 24 04/30/2023 VAGIN ITIS PLUS STD PANEL chlamydia trachomatis CT neg negati ve normal This repor t is inten ded for us in clini kristyn monit oring and manag ement of patie nts. It is not inten ded for use in medic al-le gal appli catio n. Not Available [address], [address], 04/30/2023 14:27:39 04/29/19 24 04/30/2023 VAGIN ITIS PLUS STD PANEL neisseria gonorrhoeae GC neg negati ve normal This repor t is inten ded for us in clini kristyn monit oring and manag ement of patie nts. It is not inten ded for use in medic al-le gal appli catio n. Not Available [address], [address], 04/30/2023 14:27:39 03/01/20 24 03/03/2024 VAGIN ITIS PLUS STD PANEL bacterial vaginosis BV POS negati ve abnormal Not Available [address], [address], 03/03/2024 15:12:27 03/01/20 24 03/03/2024 VAGIN ITIS PLUS STD PANEL emery species C. spp neg negati ve normal Not Available [address], [address], 03/03/2024 15:12:27 03/01/20 24 03/03/2024 VAGIN ITIS PLUS STD PANEL emery glabrata C. gla neg negati ve normal Not Available [address], [address], 03/03/2024 15:12:27 03/01/20 24 03/03/2024 VAGIN ITIS PLUS STD PANEL trichomonas vaginalis CV/TV TRICH neg negati ve normal Not Available [address], [address], 03/03/2024 15:12:27 03/01/20 24 03/03/2024 VAGIN ITIS PLUS STD PANEL chlamydia trachomatis CT neg negati ve normal This repor t is inten ded for us in clini kristyn monit oring and manag ement of patie nts. It is not inten ded for use in medic al-le gal appli catio n. Not Available [address], [address], 03/03/2024 15:12:27 03/01/20 24 03/03/2024 VAGIN ITIS PLUS STD PANEL neisseria gonorrhoeae GC neg negati ve normal This repor t is inten ded for us in clini kristyn monit oring and manag ement of patie nts. It is not inten ded for use in medic al-le gal appli catio n. Not Available [address], [address], 03/03/2024 15:12:27 03/01/20 24 03/10/2024 THINP REP TIS PAP clinical information: normal None given Not Available [employer] [address], [address], 03/10/2024 09:49:40 03/01/20 24 03/10/2024 THINP REP TIS PAP LMP: normal NONE GIVEN Not Available [employer] [address], [address], 03/10/2024 09:49:40 03/01/20 24 03/10/2024 THINP REP TIS PAP prev. Pap: normal NONE GIVEN Not Available [employer] [address] [place], [address], 03/10/2024 09:49:40 03/01/20 24 03/10/2024 THINP REP TIS PAP prev. BX: normal NONE GIVEN Not Available [address], [address], 03/10/2024 09:49:40 03/01/20 24 03/10/2024 THINP REP TIS PAP source: normal Cervi x Not Available [address], [address], 03/10/2024 09:49:40 03/01/20 24 03/10/2024 THINP REP TIS PAP statement of adequacy: normal Satis facto ry for evalu ation . Endoc ervic al/tr ansfo rmati on zone compo nent prese nt. Age and/o r menst rual statu s not provi ded Not Available [address], [address], 03/10/2024 09:49:40 03/01/20 24 03/10/2024 THINP REP TIS PAP interpretati on/result: normal Cytol ogy Resul ts: Negat emerald for intra epith elial lesio n or malig jerrod . Not Available [address] [place], [address], 03/10/2024 09:49:40 03/01/20 24 03/10/2024 THINP REP TIS PAP infection: normal Shift in vagin al jaime sugge stive of bacte rial vagin osis. Not Available [address], [address], 03/10/2024 09:49:40 03/01/20 24 03/10/2024 THINP REP TIS PAP comment: normal This Pap test has been evalu ated with compu ter jordon teri techn ology . Not Available [address], [address], 03/10/2024 09:49:40 03/01/20 24 03/10/2024 THINP REP TIS PAP cytotechnolo gist: normal PCM, CT( CP) CT Scree ni Locat ion: [place] [address] [place] [address] Not Available [employer] [place] [address] [place], [address], 03/10/2024 09:49:40 03/01/20 24 03/10/2024 THINP REP TIS PAP comment EXPLA NATOR Y NOTE: The Pap is a scree ni test for cervi kristyn cance r. It is not a diagn ostic test and is subje ct to false negat emerald and false posit emerald resul ts. It is most relia ble when a satis facto ry sampl e, regul romaine obtai kalee, is submi tted with relev ant clini kristyn findi ngs and histo ry, and when the Pap resul t is evalu ated along with histo mario and curre nt clini kristyn infor matio n. Not Available [employer] [address] [address] [address], [place], [address], 03/10/2024 09:49:40 04/17/19 25 04/19/2024 VAGIN ITIS PLUS STD PANEL bacterial vaginosis BV POS negati ve abnormal Not Available [place], [address], 04/20/2024 09:18:06 04/17/19 25 04/19/2024 VAGIN ITIS PLUS STD PANEL emery species C. spp neg negati ve normal Not Available [place], [address], 04/20/2024 09:18:06 04/17/19 25 04/19/2024 VAGIN ITIS PLUS STD PANEL emery glabrata C. gla neg negati ve normal Not Available [place], [address], 04/20/2024 09:18:06 04/17/19 25 04/19/2024 VAGIN ITIS PLUS STD PANEL trichomonas vaginalis CV/TV TRICH neg negati ve normal Not Available [facility] [address] [place], [address], 04/20/2024 09:18:06 04/17/19 25 04/19/2024 VAGIN ITIS PLUS STD PANEL chlamydia trachomatis CT neg negati ve normal This repor t is inten ded for us in clini kristyn monit oring and manag ement of patie nts. It is not inten ded for use in medic al-le gal appli catio n. Not Available [facility] [address] [facility], [place], [address], 04/20/2024 09:18:06 04/17/19 25 04/19/2024 VAGIN ITIS PLUS STD PANEL neisseria gonorrhoeae GC neg negati ve normal This repor t is inten ded for us in clini kristyn monit oring and manag ement of patie nts. It is not inten ded for use in medic al-le gal appli catio n. Not Available [facility] [address] [place], [address], 04/20/2024 09:18:06 Result Notes None recorded. Problems Name Problem SNOMED Code Status Onset Date Resolution Date Notes Provider Name and Address Organization Details Recorded Time Syphilis test finding 545656012 Completed 201705/13/2020 Encounte r for screenin g for infectio ns with a predomin antly sexual mode of transmis som; Progress : Stable Added By: Madelyn Pillai Add to Current Problems : NO ProblemS tatus: Resolve Not Available [facility] 2 20:31:36 Poor growth affectin g manageme nt [id number] Completed 201603/21/2017 Small for dates; Location : None Progress : Stable Added By: Leeann Leahy Add to Current Problems : YES ProblemS tatus: Resolve Not Available [facility] 2 20:31:39 Mixed urinary incontin ence 373827038 Completed 202008/31/2020 Mixed incontin ence; Progress : Stable Added By: Keyana Poole Add to Current Problems : NO ProblemS tatus: Resolve Not Available [facility] 2 20:31:39 Gestatio n period, 40 weeks [id number] Completed 201604/14/2017 40 weeks gestatio n of pregnanc y; Progress : Stable Added By: Kian Akhtar Add to Current Problems : NO ProblemS tatus: Resolve Not Available [facility] 2 20:31:39 Pregnanc y, childbir th and puerperi um finding Completed 201604/14/2017 Encounte r for supervis ion of normal first pregnanc y, second trimeste r; Progress : Stable Added By: Kian Akhtar Add to Current Problems : NO ProblemS tatus: Resolve Not Available [facility] 2 20:31:38 Uterine size for dates discrepa ncy [id number] Completed 201604/14/2017 Uterine size-vel e discrepa ncy, third trimeste r; Progress : Stable Added By: Madelyn Pillai Add to Current Problems : NO ProblemS tatus: Resolve Not Available [facility] 2 20:31:36 Increase d frequenc y of urinatio n 357578342 Completed 201902/04/2021 Frequenc y of micturit ion; Severity : Moderate Progress : Stable Added By: Taylor Gallego Add to Current Problems : YES ProblemS tatus: Current Removal Reason: resolved [facility] [address] [place], [address] , [employer] [facility] 1 12:54:34 Acute vaginiti s 60920048 Completed 201904/06/2021 Acute vaginiti s; Severity : Moderate Progress : Stable Added By: Taylor Gallego Add to Current Problems : YES ProblemS tatus: Current Kimberli Ragsdale CNM [address] [place], [address] , [facility] 2 20:42:56 Sampling of vagina for Papanico laou smear Completed 201805/13/2020 Encounte r for gynecolo gical examinat ion (general ) (routine ) without abnormal findings ; Progress : Stable Added By: Chelsi Piper Add to Current Problems : NO ProblemS tatus: Resolve Not Available [facility] 2 20:31:[address] Concept Completed 201905/13/2020 Encounte r for follow-u p examinat ion after complete d treatmen t for conditio ns other than malignan t neoplasm ; Progress : Stable Added By: Marlena Gonzalez Add to Current Problems : NO ProblemS tatus: Resolve Not Available [facility] 2 20:31:37 Clinical finding Completed 201604/14/2017 state, incident al; Progress : Stable Added By: Neda Tovar Add to Current Problems : NO ProblemS tatus: Resolve Not Available [facility] 2 20:31:38 Pregnanc y with other medical conditio n Completed 201604/14/2017 Incident al pregnanc y; Location : None Severity : Moderate Progress : Stable Added By: Neda Tovar Add to Current Problems : YES ProblemS tatus: Resolve Not Available [facility] 1 07:46:58 Vaginola bial hernia Completed 201905/13/2020 Other specifie d noninfla mmatory disorder s of vagina; Progress : Stable Added By: Marlena Gonzalez Add to Current Problems : NO ProblemS tatus: Resolve Not Available [facility] 2 20:31:38 Post-ter m pregnanc y 28973817 Completed 201604/14/2017 Post dates; Location : None Progress : Stable Added By: Kian Akhtar Add to Current Problems : YES ProblemS tatus: Resolve Post-ter m pregnanc y; Progress : Stable Added By: Kian kAhtar Add to Current Problems : NO ProblemS tatus: Resolve Not Available [facility] 2 20:31:41 Gestatio n period, 12 weeks [id number] Completed 202002/04/2021 12 weeks gestatio n of pregnanc y; Severity : Moderate Progress : Stable Added By: Aleksandra Olivia Add to Current Problems : YES ProblemS tatus: Current Removal Reason: resolved Kimberli Ragsdale CNM [facility] [place], [address] , [facility] [employer] [facility] 1 12:54:01 Normal pregnanc y in multigra analilia [id number] 4106 Completed 202002/04/2021 Encounte r for supervis ion of other normal pregnanc y, first trimeste r; Severity : Moderate Progress : Stable Added By: Aleksandra Olivia Add to Current Problems : YES ProblemS tatus: Current Removal Reason: resolved Kimberli Ragsdale CNM [address] [place] [address], [address] , [facility] [employer] [facility] 2 10:08:03 Gestatio n period, 8 weeks 62355662 Completed 202002/04/2021 8 weeks gestatio n of pregnanc y; Severity : Moderate Progress : Stable Added By: Aleksandra Olivia Add to Current Problems : YES ProblemS tatus: Current Removal Reason: resolved Kimberli Ragsdale CNM [address] [place] [address], [address] , [facility] [employer] [facility] 1 12:54:11 Pregnanc y 36728623 Completed 202004/06/2021 Kimberli Ragsdale CNM [address] [place] [address], [address] , [facility] [employer] [facility] 2 20:43:02 Nausea and vomiting 77624994 Completed 2020 improved w/isolat ed episodes of N/V Kimberli Ragsdale CNM [address] [place] [address], [address] , [facility] [employer] [facility] 2 20:50:59 growth restrict ion 09175690 Completed EFW @ 32 wks 1560gm. 10.9%; AC 2.4% Kimberli Ragsdale CNM [address] [place] [address], [address] , [facility] [employer] [facility] 2 20:50:59 Normal pregnanc y in multigra analilia 01757675892 4106 Completed 202006/05/2021 Encounte r for supervis ion of other normal pregnanc y, first trimeste r; Progress : Stable Added By: Aleksandra Olivia Add to Current Problems : NO ProblemS tatus: Resolve; Start Date : 11/09/19 21 Encou nter for supervis ion of other normal pregnanc y, second trimeste r; Progress : Stable Added By: Kimberli Ragsdale Add to Current Problems : YES ProblemS tatus: Current Kimberli Ragsdale CNM [address] [place], [address] , [facility] [employer] [facility] 2 10:08:03 anatomy study Completed 201604/14/2017 Encounte r for anatomic survey; Location : None Progress : Stable Added By: Gabriela Alcala Add to Current Problems : YES ProblemS tatus: Resolve Encounte r for anatomic survey; Location : None Progress : Stable Added By: Lesley Gray Add to Current Problems : YES ProblemS tatus: Resolve; Start Date : 10/31/19 17 Not Available [facility] 2 20:31:38 Gestatio n period, 15 weeks 1230985 Completed 202006/05/2021 15 weeks gestatio n of pregnanc y; Progress : Stable Added By: Kimberli Ragsdale Add to Current Problems : YES ProblemS tatus: Current Kimberli Ragsdale CNM [address] [place], [address] , [facility] [employer] [facility] 2 10:08:00 Screenin g for malignan t neoplasm of cervix Completed 201805/13/2020 Encounte r for screenin g for malignan t neoplasm of cervix; Progress : Stable Added By: Chelsi Piper Add to Current Problems : NO ProblemS tatus: Resolve Not Available [facility] 2 20:31:40 Normal pregnanc y 86095890 Completed 201604/14/2017 Medical visit for normal pregnanc y; Location : None Progress : Stable Added By: Kian Akhtar Add to Current Problems : YES ProblemS tatus: Resolve [facility] Available [facility] 2 20:31:40 Venereal disease screenin g Completed 201712/10/2017 Screenin g for STDs; Progress : Stable Added By: Neda Tovar Add to Current Problems : NO ProblemS tatus: Resolve Not Available [facility] 2 20:31:40 Antenata l screenin g Completed 201604/14/2017 Encounte r for antenata l screenin g of mother; Progress : Stable Added By: Gabriela Alcala Add to Current Problems : NO ProblemS tatus: Resolve Encounte r for other specifie d antenata l screenin g; Progress : Stable Added By: Kimberli Ragsdale Add to Current Problems : NO ProblemS tatus: Resolve; Start Date : 08/28/19 17 Anten atal screenin g; unspecif ied; Location : None Progress : Stable Added By: Kian Akhtar Add to Current Problems : YES ProblemS tatus: Resolve; Start Date : 08/28/19 17 Not Available [facility] 2 20:31:41 Patient encounte r status [id number] Active 2021 Nay workman, [place] - [employer] [facility] 2 14:02:48 Threaten ed miscarri age 82577639 Completed 201604/14/2017 Threaten ed ; Location : None Progress : Stable Added By: Neda Tovar Add to Current Problems : YES ProblemS tatus: Resolve Not Available [facility] 2 20:31:40 Problem Notes None recorded. Procedures Surgical History Date Name Laterality Status Provider Name and Address Organization Details Recorded Time 05/29/2021 NST completed Kimberli Ragsdale CNM [address] [place], [address], [employer] [facility] 05/27/2021 21:07:14 05/15/2021 NST cancelled Kimberli Ragsdale CNM [address] [place], [address], [facility] [employer] [facility] 05/12/2021 11:18:59 05/09/2021 NST completed Kimberli Ragsdale CNM [address] [place], [address], [facility] [employer] [facility] 05/12/2021 11:21:33 03/27/2021 NST completed Kimberli Ragsdale CNM [address] [place], [address], [facility] [employer] 03/27/2021 14:01:53 06/26/2019 Date of Last Pap Smear completed Nayfern Granado [facility] [employer] [facility] 02/04/2021 12:49:45 Imaging Results None recorded. Procedure Notes None recorded. Medical Equipment None Reported. Allergies Allergen ID Allergen Name Allergen Category Reaction Reaction Severity Criticality Documentation Date Start Date Code Code System Note Provider Name and Address Organization Details Recorded Time 810094 No known allergy (situatio n) Not available Not available Not available Not available 07/31/2021 23506 6003 SNOMED Not Available Not Available Not Available Medications Name Sig Start Date Stop Date Status Note LastModified by Organization Details LastModified Time doxycycli ne hyclate 100 mg capsule 02/04 completed Not Available Not Available Not Available azithromy tayler 250 mg tablet 03/01 completed Not Available Not Available Not Available fluconazo le 150 mg tablet TAKE 1 TABLET BY MOUTH EVERY 3 DAYS FOR 2 DOSES AFTER COMPLETI ON OF ANTIBIOT ICS active Not Available Not Available No t Available fluconazo le 200 mg tablet TAKE 1 TABLET BY MOUTH DAILY 03/01 completed Not Available Not Available Not Available metronida zole 0.75 % (37.5 mg/5 gram) vaginal gel INSERT 1 APPLICAT ORFUL VAGINALL Y EVERY DAY AT BEDTIME FOR 5 DAYS active Not Available Not Available No t Available prednison e 20 mg tablet TAKE 2 TABLETS BY MOUTH DAILY FOR 5 DAYS 04/29 completed Not Available Not Available Not Available metronida zole 500 mg tablet Take 1 tablet every 12 hours by oral route for 7 days. 2024 active Not Available Not Available Not Avai lable ondansetr on 8 mg disintegr ating tablet place 1 tablet (8 mg) on top of the tongue where it will dissolve q 4-6 h PRN for nausea 12/06 completed ondanset laureano 8 mg oral Tablet,d donn ating RxNorm: 516505 Allow Substitu tion: True Refill Denied: No Edited by: Aleksandra Sumner ) on 12/07/19 Stopped by: Aleksandra Sumner ) on 12/07/19 Not Available Not Available Not Available Vitamin tablet Take 1 tablet by mouth daily. 10/11 completed Multivit barr Tablet Allow Substitu tion: True Refill Denied: No Not Available Not Available Not Available benzonata te 100 mg capsule TAKE 1 CAPSULE BY MOUTH TWICE DAILY NEEDED FOR COUGH 03/01 completed Not Available Not Available Not Available docusate sodium 100 mg capsule 100 mg by oral route. 06/22 completed Not Available Not Available Not Available ibuprofen 600 mg tablet 600 mg every 6 hours by oral route. 06/22 completed Not Available Not Available Not Available metronida zole 0.75 % topical gel APPLY TOPICALL Y TO THE AFFECTED AREA AT BEDTIME FOR 5 DAYS 04/29 completed Not Available Not Available Not Available metoclopr amide 10 mg tablet 02/04 completed Not Available Not Available Not Available nitrofura ntoin monohydra te/macroc rystals 100 mg capsule take 1 capsule (100 mg) by oral route 2 times per day with food 05/21 completed nitrofur antoin monohyd/ m-cryst 100 mg oral capsule RxNorm: 2083448 Allow Substitu tion: True Refill Denied: No Edited by: Aleksandra Sumner ) on 05/22/19 Stopped by: Aleksandra Sumner ) on 05/22/19 Not Available Not Available Not Available metronida zole 12/06 completed metroNID AZOLE RxNorm: 258910 Allow Substitu tion: False Refill Denied: No Refill DateOccu rred: 08/20/20 21 Edited by: Aleksandra Sumner ) on 12/07/19 21 Stopped by: Aleksandra Sumner ) on 12/07/19 21 Not Available Not Available Not Available ferrous sulfate 324 mg (65 mg iron) tablet,de layed release Take 324 mg by oral route. 10/28 completed Not Available Not Available Not Available levonorge strel 1.5 mg tablet TAKE 1 TABLET BY MOUTH FOR 1 DAY active Not Available Not Available No t Available 28 mg iron-800 mcg tablet Take 1 tablet every day by oral route with meals. 10/28 completed Not Available Not Available Not Available Vitals Date Recorded Body height Body mass index (BMI) Body weight Body temperature Systolic blood pressure Diastolic blood pressure Provider Name and Address Organization Details Last Updated DateTime 3 157.48 cm 25.1 kg/m2 57757.1 5 g 97.8 [degF] 96 mm[Hg] 60 mm[Hg] Stephanie casillas [facility] [employer] [facility] 3 13:07:21 Date Recorded Body height Body mass index (BMI) Body weight Body temperature Systolic blood pressure Diastolic blood pressure Provider Name and Address Organization Details Last Updated DateTime 3 157.48 cm 24.6 kg/m2 45984.8 1 g 97.9 [degF] 94 mm[Hg] 60 mm[Hg] Madelin Gray [facility] [employer] 3 17:10:23 Date Recorded Body height Body mass index (BMI) Body weight Body temperature Systolic blood pressure Diastolic blood pressure Provider Name and Address Organization Details Last Updated DateTime 4 157.48 cm 21.6 kg/m2 72062.6 2 g 97.3 [degF] 100 mm[Hg] 62 mm[Hg] Jessica Fishman [facility] [employer] [facility] 4 12:01:30 Date Recorded Body height Body mass index (BMI) Body weight Body temperature Systolic blood pressure Diastolic blood pressure Provider Name and Address Organization Details Last Updated DateTime 4 157.48 cm 22.2 kg/m2 43509.1 1 g 96.9 [degF] 104 mm[Hg] 68 mm[Hg] Kaela Aguirre [employer] [facility] 4 16:06:11 Date Recorded Body height Body mass index (BMI) Body weight Systolic blood pressure Diastolic blood pressure Provider Name and Address Organization Details Last Updated DateTime 04/17/2024 157.48 cm 22.6 kg/m2 16366.3 g 100 mm[Hg] 60 mm[Hg] Wally Lou [facility] 5 16:12:51 Social History Question Answer Notes LastModified by [employer] Details LastModified Time Tobacco Smoking Status Never Smoker Nay Granado ji, [employer] 02/04/2021 12:49:54 What Is Your Level Of Alcohol Consumption? None Information not available 02/04/2021 If You Are , What Was Your Level Of Alcohol Consumption Prior To ? None Information not available 04/17/2024 Are You Blind Or Do You Have Difficulty Seeing? No Information not available 04/03/2021 Are You Currently Employed? Yes Information not available 04/17/2024 Are You Deaf Or Do You Have Serious Difficulty Hearing? No Information not available 04/03/2021 What Type Of Diet Are You Following? REGULAR Information not available 02/04/2021 Do You Or Have You Ever Used E-cigarettes Or Vape? Never Used Electronic Cigarettes Information not available 02/04/2021 How Many Children Do You Have? 2 [email or web address] Information not available 01/07/2022 What Is Your Relationship Status? Single Information not available 02/04/2021 Are You Sexually Active? Yes brock Information not available 05/20/2022 Do You Use Any Illicit Or Recreational Drugs? No Information not available 06/05/2021 Do You Or Have You Ever Used Any Other Forms Of Tobacco Or Nicotine? No Information not available 08/14/2021 Sex: Female Functional Status Question Answer Note LastModified by [employer] Details LastModified Time What is your exercise level? Occasional Information not available 02/04/2021 Mental Status None recorded. Family History Relationship Description Onset Age of this Age Resolved Age Notes LastModified by Organization Details LastModified Time Father No current problems or disability [email or web address] Not available 08/14 14:54:00 Mother No current problems or disability [email or web address] Not available 08/14 14:54:00 Medical History Condition Response Other Cancer N High Blood Pressure N Colon Cancer N Cytomegalovirus N Hyperthyroidism N Breast Cancer N MRSA N Herpes (HSV) N Blood Transfusion N Lung Cancer N Depression N Hypothyroidism N Incontinence N Panic Attacks N Neurological Disorder N Deep Vein Thrombosis N Anxiety Disorder N Autoimmune disease N Arthritis N Tuberculosis/Positive PPD N Shingles N Polycystic Ovarian Syndrome N Cervical Cancer N Hematuria N Chlamydia N Stroke N Varicosities N Seasonal allergies N Crohn's Disease N Alzheimer's/Dementia N COPD/Emphysema N Endometriosis N HPV/Genital Warts N IBS (Irritable Bowel Syndrome) N History of Abnormal Pap N High Cholesterol N Liver Disease N Kidney Infection N Fibromyalgia N Ulcer N Kidney Disease N HIV N Gallbladder disease N Sickle Cell Disease/Trait N Von Willebrand disease N ADD/ADHD N Eating Disorder N Anemia N Diabetes Mellitus (non-insulin dependent ) N Multiple Sclerosis N Ovarian Problems N Gonorrhea N Frequent Urinary Tract infections N Osteopenia N Headaches/migraines N GERD (reflux) N Ovarian Cancer N Diabetes (insulin dependent) N Seizures/Epilepsy N Fibroids N Asthma N Heart Attack N Lupus N Endometrial Cancer N Rubella N Blood Clotting Disorder N Bipolar Disorder N Diabetes Mellitus (during ) N Ulcerative Colitis N Hepatitis N Heart Disease N Pulmonary Embolism N RPR N Chicken Pox N Osteoporosis N Gynecological History Statement/Question Response Flow Moderate Date of last HPV Date of LMP 04/04/2024 HPV Vaccine N Duration of Flow (days) 4 Most Recent Mammogram Current Control Method None Age at Menarche 15 Date of Last Colonoscopy Most Recent Bone Density Frequency of Cycle (Q days) 15,20,28 Date of Last Pap Smear 06/26/2019 Obstetrics History GPAL:G 3 P 2 0 1 2 Type Value Full Term 2 Induced 1 Living 2 Total 3 Past Encounters Encounter ID Performer Location Encounter Start Date Encounter Closed Date Diagnosis/Indication Diagnosis SNOMED-CT Code Diagnosis ICD10 Code Diagnosis Note [id number] Kimberli Ragsdale CNM [facility] [address] [place] [address] 02/04/2021 11:24:25 02/04/2021 14:10:17 Normal in multigravida 4851927112 72023 Z34.82 Gestation period, 21 weeks 73415898 Z3A.21 screening for malformation 252536794 Z36.3 Anatomy US complete; [id number] [facility] [address] [facility] [place] [address] 03/06/2021 15:01:11 03/06/2021 22:46:59 Normal in multigravida 3902364984 24692 Z34.82 Gestation period, 26 weeks 70143316 Z3A.26 [id number] [facility] [address] [facility], [place] [address] 03/27/2021 11:14:40 03/27/2021 20:49:18 Uterine size for dates discrepancy 401646599 O26.849 growth Routine an tenatal care 156159535 Z34.03 Z34.83 O09.513 O09.523 Depression screening 171 919067 Z13.32 grow th restriction 77041643 O36.5931 NST [id number] [facility] [address] [facility], [place] [address] 04/03/2021 14:13:29 04/05/2021 19:17:57 Supervision of high risk for multigravida done 8588187135 9109 O09.93 Gestation period, 29 weeks 38719278 Z3A.29 grow th restriction 07265076 O36.5931 Anemia of 2733 2003 O99.866 [id number] [facility] [address] [facility] [place] [address] 04/10/2021 15:35:54 04/14/2021 12:43:57 Supervision of high risk for multigravida done 0771968478 9109 O09.93 Gestation period, 30 weeks 43661148 Z3A.30 grow th restriction 38831155 O36.5931 BPP 8/8; SD 3.05 [id number] Kimberli Ragsdale CNM [facility] [address] [facility], [place] [address] 04/17/2021 14:58:22 04/17/2021 21:30:02 Supervision of high risk for multigravida done 9470437269 91 O09.93 Gestation period, 31 weeks 99657977 Z3A.31 grow th restriction 67173324 O36.5931 [id number] Kimberli Ragsdale CNM [address] [address] 05/02/2021 15:50:37 05/14/2021 14:54:10 Supervision of high risk for multigravida done 4057542697 91 O09.93 Gestation period, 34 weeks 51448008 Z3A.34 labor precaution s given. FM counts discussed. F/u in L&D if experienci ng decreased movement, leaking fluid, 4 or more contractio ns in 1 hour not relieved by rest and fluids, or regular uterine contractio ns increasing in frequency and/or intensity. grow th restriction 27706165 O36.5931 EFW on 04/17: 1560gm 31.4 wksBPD: 32.3 %HC 14.2 %AC 2.4 %FL 39.0 %EFW 10.9 % [id number] Kimberli Ragsdale CNM [address] [address] 05/09/2021 15:16:08 05/09/2021 19:21:49 Supervision of high risk for multigravida done 3825793970 91 O09.93 Gestation period, 35 weeks 93832017 Z3A.35 grow th restriction 37115674 O36.5931 EFW on 04/17: 1560gm 31.4 wksBPD: 32.3 %HC 14.2 %AC 2.4 %FL 39.0 %EFW 10.9 % [id number] Kimberli Ragsdale CNM [address] [address] 05/29/2021 15:03:25 06/02/2021 06:41:04 Supervision of high risk for multigravida done 9668661651 9109 O09.93 Gestation period, 37 weeks 68443030 Z3A.37 grow th restriction 26662866 O36.5931 EFW in normal range today. AC WNL. Reviewed measuremen ts w/Dr Gonzales & Dr Alvarenga. HC within range - no microcepha ly on perinatolo Wanamaker calc. Per Dr Gonzales ok to stop testing but will induce next week. [id number] Kimberli Ragsdale CNM [facility] [address] [place] [address] 06/05/2021 10:05:05 06/05/2021 11:00:51 Normal in multigravida 8770916001 11786 Z34.82 Gestation period, 38 weeks 80122632 Z3A.38 screening 2437 80540 Z36.85 [id number] Kimberli Ragsdale CNM [facility] [address] [place] [address] 08/14/2021 14:52:36 08/14/2021 16:02:34 state 90923320 Z39.2 COUNSELING was provided today regarding the following topics:- healthy eating habits. -- education given on weight management .- regular exercise - may resume pre-pregna ncy frequency and intensity as tolerated- Sexual activity - may resume intercours e & use backup contracept ion as needed.- Dietary supplement s: continue vitamins- Aircraft Time Clerk screening: maintain recommende d screening guidelines including PAP screeninga s indicated- Depression - She denies any feelings of depression , frequent crying or feelings of harming self or others.- EPDS is _5- Educated on the warning signs of depression and when to seek medicalatt ention.- SAFE SLEEPING INSTRUCTIO NS- avoid back sleep, co-sleepin g,- maintain cool environmen t,- no blankets or other objects in crib that could present hazard to infant.- Resume normal activity- May return to work w/o restrictio n when specified maternity leave is completed. - FOLLOW-UP: Schedule a follow-up appointmen t as needed Venereal d isease screening 908688771 Z11.3 [id number] Kimberli Ragsdale CNM [facility] [address] [place] [address] 10/28/2021 11:36:26 10/28/2021 13:23:42 Vaginal discharge 935301431 N89.8 - Avoid all over the counter creams or ointments, except A&D Ointment (if you have wool allergy do not use A&D).-DO NOT DOUCHE. Baking soda soaks will help rinse away extra discharge and help with odor.-DO NOT SHAVE, wax or laser the vulvar area (the bikini line is ok).-Some women may have problems with chronic dampness. Keeping dry is important. Choose cotton fabrics whenever you can.-Can use OTC boric acid capsules to control odor Dysuria 69130342 R30.9 Reports suprapubic pain when she is not able to empty bladder. Pain subsides after urination. Likely bladder spasms. F/u if experienci ng pain after urination, frequency or hematuria. [id number] Lesley Luna CNM [address] [address] 01/07/2022 12:20:34 01/07/2022 16:35:15 Vaginal discharge 370564633 N89.8 N76.0 await cultures for treatment. [id number] Kimberli Ragsdale CNM [address] [address] 04/09/2022 14:45:37 04/09/2022 15:16:12 Vaginal discharge 088690645 N89.8 N76.0 - Avoid all over the counter creams or ointments, except A&D Ointment (if you have wool allergy do not use A&D).-DO NOT DOUCHE. Baking soda soaks will help rinse away extra discharge and help with odor.-DO NOT SHAVE, wax or laser the vulvar area (the bikini line is ok).-Some women may have problems with chronic dampness. Keeping dry is important. Choose cotton fabrics whenever you can.-Can use OTC boric acid capsules to control odor Venereal d isease screening 851071861 Z11.3 [id number] Kimberli Ragsdale CNM [facility] [address] [place] [address] 05/20/2022 12:40:43 05/20/2022 13:53:32 Vaginal discharge 930304545 N89.8 N76.0 - Avoid all over the counter creams or ointments, except A&D Ointment (if you have wool allergy do not use A&D).-DO NOT DOUCHE. Baking soda soaks will help rinse away extra discharge and help with odor.-DO NOT SHAVE, wax or laser the vulvar area (the bikini line is ok).-Some women may have problems with chronic dampness. Keeping dry is important. Choose cotton fabrics whenever you can.-Can use OTC boric acid capsules to control odor [id number] TORY MCKEON [address] [address] 08/27/2022 16:47:39 08/28/2022 10:16:59 Venereal disease screening 108429203 Z11.3 [id number] TORY MCKEON [address] [address] 04/29/2023 11:43:29 04/29/2023 17:39:15 Acute vaginitis 50854089 N76.0 Pt comes in today for Infection/ STI testing. Discussed the various types of Infections and STIs, related symptoms and the potential consequenc es (including effects on fertility) of STI. Reviewed ways to limit exposure and prevention techniques . Vulvar care guidelines and safe sex practices reviewed. TX pending results. 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 The patient denies any changes in her medical history. The patient denies any changes in her family medical history. 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 Menses lasts for 5 days. Reports they are not heavy or painful. Denies spotting in between.Pt is currently using nothing for contracept ion. She is satisfied with her current method. Pap History:Jose castellano is due for a pap smear. Breast History:Jose castellano denies breast symptoms. Education on Breast Self Awareness given. Patient is regularly seen by PCP for preventati ve care: Yes Screening for malignant neoplasm of cervix 442723275 Z12.4 Depression screening 171 353432 Z13.31 See Intake Screening - PHQ Contracept ion education 942816821 Z30.09 Contracept emerald counseling : Discussed options including OCPs, NuvaRing, Nexplanon, hormonal and copper IUDs. Discussed risks, efficacy, noncontrac eptive benefits, and side effects of each option, including risk of VTE with hormonal contracept ion and uterine perforatio n, expulsion, infection with IUD. Acute vaginitis 29547031 N76.0 Pt comes in today for Infection/ STI testing. Discussed the various types of Infections and STIs, related symptoms and the potential consequenc es (including effects on fertility) of STI. Reviewed ways to limit exposure and prevention techniques . Vulvar care guidelines and safe sex practices reviewed. TX pending results. [id number] Kimberli Ragsdale CNM [facility] [address] [place] [address] 04/17/2024 15:57:21 04/17/2024 16:30:25 Contraception care 971063644 Z30.012 unprotecte d intercours e last night. Vaginal discharge 903444 006 N89.8 Reports small amounts of vaginal discharge and mild odor.Boric acid capsules to control odor.Tx pending lab results Health Concerns Section Related Observation LastModified by Organization Detai ls LastModified Time None Recorded Concern Status LastModified by Organization Details LastModified Time None Recorded Advance Directives Directive None Recorded Payers Encounter Date Sequence Insurance Name Policy Number Policy Castellanos Covered Member ID Castellanos Member ID Guarantor Name 05/20/2022 1 [facility] - DOS ON OR AFTER 20 (MEDICAID REPLACEMENT - HMO) Shanti Roger [id number] Shanti Alfonso Shurn 08/27/2022 1 [facility] ON OR AFTER 09/19/20 (MEDICAID REPLACEMENT - HMO) Shanti Alfonso Shurn [id number] Shanti Alfonso Shurn 04/29/2023 1 [facility] ON OR AFTER 09/19/20 (MEDICAID REPLACEMENT - HMO) Shanti Alfonso Shurn [id number] Shanti Alfonso Shurn 03/01/2024 1 [facility] ON OR AFTER 09/19/20 (MEDICAID REPLACEMENT - HMO) Shanti Alfonso Shurn [id number] Shanti Alfonso Shurn 04/17/2024 1 [facility] ON OR AFTER 09/19/20 (MEDICAID REPLACEMENT - HMO) Shanti Alfonso Shurn [id number] Shanti Alfonso Shurn Notes Date Note Type Note Provider Name and Address Organization Details Recorded Time 05/20/2022 text/html Vaginal/Vulvar ProblemReported bypatient.Location:[facility] Quality:irritation Context:sexually active; new sexual partner Associated Symptoms:no vaginal itching; no vaginal pain; no vulvar itching/irritation; no vulvar swelling/erythema; no vulvar pain; no vulvar lesions; no pelvic pain; no dyspareunia; no dysuria; no fever; no abdominal pain;vaginal irritation Shanti has noticed an odor, off white dischargeShe would also like to have STI testing today Kimberli Ragsdale CNM [address] [place], [address], [facility] [employer] 05/20/2022 15:27:01 08/27/2022 text/html Shanti is here for possible bv, has an odor and has discharge. off white, thick.last PAP was 06/2019. Denies wanting PAP today- will RTC.wants to get bloodwork for stds JERSEY BOOTH- [address] [facility], [place], [address], [facility] [employer] IV 08/27/2022 22:58:40 04/29/2023 text/html Shanti presents today for strong vaginal odor and std testing. She also states she has some swelling and feel like there is a rip in vaginal area. ZACK BOOTH [address] [place], [address], [facility] [employer] 04/29/2023 12:24:18 03/01/2024 text/html Annual GYNReport ed bypatient.Menstrual cycle:Normal menses Urinary symptoms:No hematuria; No incontinence Vulva:No genital lesion Vagina:Normal vaginal discharge Breast:No breast pain; No breast lump; No nipple discharge Sexual complaints:No sexual complaints; No pain during intercourse; Normal libido Menopausal Symptoms:No menopausal symptoms; Normal vaginal lubrication Psychological symptoms:No depression; No anxiety; No PMDD Pt is here for an annual exam. Her LMP was 02/10/24. Pt states she would like a better understanding of the pap smear before agreeing to do it. She does not practice control. Pt PHQ9 score is ZACK BOOTH [address] [place], [address], [facility] [employer] 03/01/2024 16:20:56 04/17/2024 text/html Shanti is here for family planningpatient states she had unprotected sex last night and would plan bpatient is sexual activepatient states is not currently on any control Kimberli Ragsdale CNM [address] [place], [address], [facility] [employer] 04/17/2024 16:30:07 OBGyn Episode Ob Episode Information Episode Created Date Number of Fetuses Patient Bloodtype Patient rh Status Prepregnancy Weight lbs Domestic Partner Domestic Partner Phone Father Name Recording Clerk Status 02/04/20 21 1 117 CLOSED Fetus Data First Name Last Name Admitted to NICU Weight (g) Sex Living Outcome Pediatric Complications Fetus ID Race Codes Race Delivery Type Kensle y false 3005.04 7 F Full Term none [id number] Problems Problem Notes PNL: B+/RI/NRx3 Screen negat emerald for open NTD, DS and Trisomy 18. Problem Name Start Date End Date Resolution Snomed Code Not e growth restriction 02887032 EFW @ 32 wks 1560gm. 10.9%; AC 2.4% Nausea and vomiting 01/20/2021 MEDICATION [id number] improved w/isolated episodes of N/V Joseph Calculation Initial Joseph Date Initial Exam Date Initial Exam Provider Initial Ultrasound Date Last Menstrual Period Date Ultra Sound Weeks Gestation 06/15/2021 11/08/2020 11/08/2020 09/13/2020 8 Eighteen To Twenty Week Joseph Update Ultra Sound Date Fundal Height At Umbil Quickening Date Ultra Sound Latest Weeks Gestation Final Joseph Confirmed By Final Joseph Confirmed Date Final Joseph Date Ultra Sound Latest Days Gestation 0 [email or web address] 02/03/2021 06/16/19 22 0 Pre-shanita Flowsheet Flowsheet Date 02/04/2021 Polo Score Blood Edema Fundus Height Fundus Units Glucose Ketones Leukocytes Nitrite Labor Signs Protein Cervic Dilation Cervic Effacement Cervic Station none none none neg Type Weight in lbs Pre/Post Dialysis Refused With clothes 131.070190382211 BP Diastolic BP Location Tested BP Systolic BP Type 62 L arm 102 sitting Fetus Heart Rate Present A 143 Fetus Movement A Yes Comments Anatomy US complete; CL 4.7 cm; female Flowsheet Date 03/06/2021 Polo Score Blood Edema Fundus Height Fundus Units Glucose Ketones Leukocytes Nitrite Labor Signs Protein Cervic Dilation Cervic Effacement Cervic Station none 23 none none trace Type Weight in lbs Pre/Post Dialysis Refused With clothes 137.549451519300 BP Diastolic BP Location Tested BP Systolic BP Type 60 L arm 98 sitting Fetus Heart Rate Present A 153 Fetus Movement A Yes Comments S<D EFW @ 28,32 wks Flowsheet Date 03/27/2021 Polo Score Blood Edema Fundus Height Fundus Units Glucose Ketones Leukocytes Nitrite Labor Signs Protein Cervic Dilation Cervic Effacement Cervic Station none 26 none none neg Type Weight in lbs Pre/Post Dialysis Refused With clothes 147.888382671505 BP Diastolic BP Location Tested BP Systolic BP Type 62 L arm 100 sitting Fetus Heart Rate Present A 149 Fetus Movement A Yes Comments EFW 1096gm; 11.3%; AC 5% - F GR. NST reactive this visit. Plan APFT 2x/weekly Flowsheet Date 04/03/2021 Polo Score Blood Edema Fundus Height Fundus Units Glucose Ketones Leukocytes Nitrite Labor Signs Protein Cervic Dilation Cervic Effacement Cervic Station none 26 cm none none neg Type Weight in lbs Pre/Post Dialysis Refused With clothes [id number] BP Diastolic BP Location Tested BP Systolic BP Type 60 L arm 106 sitting Fetus Heart Rate Present A 145 Fetus Movement A Yes Comments BPP 8/8; S/D ratio normal. W ill get NST at E Wednesday or Wednesday d/t pt's transportation issues. Cont BPPs on . Re-evaluate EFW 3-4 wks. Flowsheet Date 04/10/2021 Polo Score Blood Edema Fundus Height Fundus Units Glucose Ketones Leukocytes Nitrite Labor Signs Protein Cervic Dilation Cervic Effacement Cervic Station none Type Weight in lbs Pre/Post Dialysis Refused Stated 146.129751410926 BP Diastolic BP Location Tested BP Systolic BP Type 60 R arm 98 sitting Fetus Heart Rate Present A 145 Fetus Movement Comments BPP 8/8; D/S 3.05. NST on @ [facility]. EFW next appt. Flowsheet Date 04/17/2021 Polo Score Blood Edema Fundus Height Fundus Units Glucose Ketones Leukocytes Nitrite Labor Signs Protein Cervic Dilation Cervic Effacement Cervic Station Type Weight in lbs Pre/Post Dialysis Refused BP Diastolic BP Location Tested BP Systolic BP Type Fetus Heart Rate Present Fetus Movement Comments Patient not seen after ultas ound checked out by front end manager w/o confirming w/provider.BPP 8/8; S/D 2.73 Flowsheet Date 05/02/2021 Polo Score Blood Edema Fundus Height Fundus Units Glucose Ketones Leukocytes Nitrite Labor Signs Protein Cervic Dilation Cervic Effacement Cervic Station none none neg Type Weight in lbs Pre/Post Dialysis Refused Weight 151.967542134502 BP Diastolic BP Location Tested BP Systolic BP Type 70 100 Fetus Heart Rate Present A 147 Fetus Movement A Yes Comments BPP 8/8 Flowsheet Date 05/09/2021 Polo Score Blood Edema Fundus Height Fundus Units Glucose Ketones Leukocytes Nitrite Labor Signs Protein Cervic Dilation Cervic Effacement Cervic Station none none none neg Type Weight in lbs Pre/Post Dialysis Refused Weight 150.395577693187 BP Diastolic BP Location Tested BP Systolic BP Type 80 120 Fetus Heart Rate Present A 130 Fetus Movement A Yes Comments NST reactive; BPP 8/8; pt ca n only come to the office once a week. S/D ratio WNL Flowsheet Date 05/29/2021 Polo Score Blood Edema Fundus Height Fundus Units Glucose Ketones Leukocytes Nitrite Labor Signs Protein Cervic Dilation Cervic Effacement Cervic Station none 33 cm none none neg Type Weight in lbs Pre/Post Dialysis Refused Stated 154.683585986849 BP Diastolic BP Location Tested BP Systolic BP Type 72 L arm 116 sitting Fetus Heart Rate Present A 151 Fetus Movement A Yes Comments 06/09 @ [id number] next visit Flowsheet Date 06/05/2021 Polo Score Blood Edema Fundus Height Fundus Units Glucose Ketones Leukocytes Nitrite Labor Signs Protein Cervic Dilation Cervic Effacement Cervic Station none 34 none none neg Type Weight in lbs Pre/Post Dialysis Refused With clothes 156.144203392015 BP Diastolic BP Location Tested BP Systolic BP Type 68 L arm 106 sitting Fetus Heart Rate Present A 139 Fetus Movement A Yes Comments GBS collected Menstrual History Last Menstrual Date Menses Monthly On Bcp Conception Prior Menses Frequency Hcg Plus Date Menarche Onset Age 0609/13/2020 Genetic Screening And Infection History Question Response Note Recent Travel History Outside of Country false Cystic Fibrosis false Any Other Genetic History false Christina Disease false Other Infection History false Thalassemia (Bahamian, Persian, Mediterranean, Or Background): MCV < 80 false Patient Or Baby's Father Had A Child With Defects Not Listed Above false Live With Someone With TB Or Exposed To TB false Patient's Age Will Be 35 Years Or Older At Estim ated Date of Delivery false Recurrent Loss, Or A Stillbirth false Hemoglobinopathy Or Carrier false Patient Or Partner Has History Of Genital Herpes false Intellectual Disability/Autism false Maternal Metabolic Disorder (eg, Type 1 Diabetes , PKU) false History of Hepatitis false Ameya-Sachs (eg, Jehovah'S Witness, Cajun, Tristanian-Mosca) f alse History Of STD, Gonorrhea, Chlamydia, HPV, Syphi lis false Prior GBS-infected child false History of HIV false Personal or Family History o f Neural Tube Defect (Meningomyelocele, Spina Bifida, Or Anencephaly) false Hemophilia Or Other Blood Disorders false Mental Retardation/Autism false Yung's Chorea false If Yes, Was Person Tested For Fragile X? false Other Inherited Genetic Or Chromosomal Disorder false If Yes, Agent(s) And Strength/Dosage false Sickle Cell Disease Or Trait () false Personal or Family History of Congenital Heart D efect false Rash Or Viral Illness Since Last Menstrual Perio d false Muscular Dystrophy false Medications (including Suppl ements, Vitamins, Herbs, OTC Drugs), Illicit/Recreational Drugs, Alcohol false Other Structural Defect false Down Syndrome false Delivery Information Delivery Date Delivery Type Labor Anesthesia Weeks Gestation Incision Type Labor Labor Length Hrs Delivered By Post Complications Tubal Sterilization Discharge Date Comments 2 Induce d Regional-Ep idural 39.1 false Kimberli Ragsdale CNM None Discharge Information Feeding Method Contraceptive Method Maternal HG B and HCT Levels Breast Ob Episode Information Episode Created Date Number of Fetuses Patient Bloodtype Patient rh Status Prepregnancy Weight lbs Domestic Partner Domestic Partner Phone Father Name Recording Clerk Status 02/05/20 21 1 CLOSED Fetus Data First Name Last Name Admitted to NICU Weight (g) Sex Living Outcome Pediatric Complications Fetus ID Race Codes Race Delivery Type [id number] F Full Term [id number] Joseph Calculation Initial Joseph Date Initial Exam Date Initial Exam Provider Initial Ultrasound Date Last Menstrual Period Date Ultra Sound Weeks Gestation 0 Eighteen To Twenty Week Joseph Update Ultra Sound Date Fundal Height At Umbil Quickening Date Ultra Sound Latest Weeks Gestation Final Joseph Confirmed By Final Joseph Confirmed Date Final Joseph Date Ultra Sound Latest Days Gestation 0 0 Menstrual History Last Menstrual Date Menses Monthly On Bcp Conception Prior Menses Frequency Hcg Plus Date Menarche Onset Age Delivery Information Delivery Date Delivery Type Labor Anesthesia Weeks Gestation Incision Type Labor Labor Length Hrs Delivered By Post Complications Tubal Sterilization Discharge Date Comments 7 false Lesley Luna Discharge Information Feeding Method Contraceptive Method Maternal HG B and HCT Levels
--- NOTE | 2024-06-16 09:20 | ED_ITS ---
HPI - Female Genitourinary General Chief complaint: Urogenital-Female Stated complaint: issues in my vulva area Time Seen by Provider: 06/16/24 08:58 Source: patient Mode of arrival: ambulatory Limitations: no limitations History of Present Illness HPI Narrative: Patient is a 28 y/o female who presents to the ED with c/o dysuria and vaginal discharge. Patient reports having dysuria, urinary frequency, pressure with urination, abnormal thick white creamy vaginal discharge, intermittent vaginal spotting for the past 3-4 days. Has hx of previous UTI, bacterial vaginosis, yeast infection. States current sx's feel similar to all of these. She denies significant abdominal/back pain, fevers, N/V. Also expresses concern for STIs as she states her current partner as been unfaithful to her. Related Data Allergies Allergy/AdvReac Type Severity Reaction Status Date / Time No Known Drug Allergies Allergy Unknown Unknown Verified 01/24/24 08:52 Review of Systems Review of Systems: All systems reviewed & are unremarkable except as noted in HPI. All systems reviewed & are unremarkable except as noted in HPI and below PMFSH Past Medical History Medical History Healthy adult Surgical History Surgical History No history of previous surgery Social History Social History Smoking status: Never smoker Gender identity (if verbalized by the patient): Female Exam Narrative: GENERAL: Well appearing, well-nourished, non-toxic, in no acute distress. HEAD: Normocephalic, atraumatic. RESPIRATORY: Airway patent, respirations nonlabored. Clear to auscultation bilaterally, no rales, rhonchi, wheezing. CARDIOVASCULAR: Regular rate and rhythm without murmurs, rubs, or gallops. ABDOMINAL: Soft, no tenderness throughout abdomen, nondistended. Normoactive BS. No CVA tenderness to percussion. PELVIC: Normal external genitalia. No abnormal genital lesions. Moderate amount of thick white vaginal discharge. No significant CMT. No vaginal bleeding. MUSCULOSKELETAL: Moves all extremities. No gross deformities. SKIN: Warm, dry, normal color. NEURO: A&O X3. Speech clear. PSYCHIATRIC: Appropriate mood and affect. Normal interaction. Course Vital Signs Vital signs: Vital Signs Temperature 97.6 F 06/16/24 09:00 Temperature 97.6 F 06/16/24 09:00 Pulse Rate 83 06/16/24 11:32 Respiratory Rate 14 06/16/24 11:32 Blood Pressure 117/83 06/16/24 11:32 Pulse Oximetry 100 06/16/24 11:32 MDM - Female Genitourinary MDM Narrative Medical decision making narrative: Patient presented to ED with several day history of URI symptoms, concern for UTI/yeast infection/possible BV. Also wanting to be tested for STIs. Vital signs stable. Patient in no acute distress. No focal tenderness on abdominal exam. No evidence of surgical abdomen. UA consistent with infection. >100 RBC/WBC, 4+ urine bacteria, positive nitrate. Will Tx. Sent for cx. No previous cultures available for comparison. Urine negative. Testing for gonorrhea, chlamydia, Trichomonas negative. Pelvic exam with moderate amount of vaginal discharge, no vaginal bleeding. CT abd/pelvis showin. 1 mm nonobstructing stone at a lower pole calyx of the right kidney. No ureteral stones or hydronephrosis. Discussed lab and imaging findings with patient. Feel she is safe for discharge home at this time. Will refer to urology for outpatient management of stone. No ureteral stones at this time. Patient denying any significant ongoing back or abdominal pain. Will treat for UTI with Keflex. Patient would also like to be prophylactically treated for BV. She prefers the metronidazole vaginal applicator. This was prescribed. Patient also given 1 time dose of Diflucan given predisposition for yeast infections with antibiotics. Patient advised to have close follow-up with OBGYN for further evaluation. Given strict return precautions. She agrees with plan. All questions answered. Discharged in stable condition. Medical Records Attestation: I reviewed the patient's medical records. Lab Data Attestation: I reviewed the patient's lab results. Labs: Lab Results 06/16/24 06/16/24 06/16/24 Range/Units 09:19 09:23 11:37 Urine Color Yellow (Yellow) Urine Appearance Turbid H (Clear) Urine pH 7.5 (5.0-9.0) Ur Specific [place] 1.020 (1.001-1.035) Urine Protein 2+ H (Negative) mg/dL Urine Glucose (UA) Negative (Negative) mg/dL Urine Ketones Negative (Negative) mg/dL Ur Blood (Man) 3+ H (Negative) Urine Nitrate Positive H (Negative) Urine Bilirubin Negative (Negative) Urine Urobilinogen 1.0 (<2.0) mg/dL Leukocyte Esterase Rfl 3+ H (Negative) ERASMO/UL Urine RBC >100 H (0-2) /hpf Urine WBC >100 H (0-3) /hpf Ur Squamous Epith Cells None seen (Few) /hpf Urine Bacteria 4+ H /hpf Urine Casts 0-2 POC Urine HCG, Qual Negative (Negative) C. trachomatis (PCR) Not detected (NOT DETECTE) N. gonorrhoeae (PCR) Not detected (NOT DETECTE) T. vaginalis (PCR) Not detected (NOT DETECTE) Bact Vaginosis Panel Pending Imaging Data Attestation: I personally reviewed and interpreted this imaging study as follows: Radiologist's impression: ITS Impressions Abdomen/Pelvis CT 06/16/24 10:52 IMPRESSION: 1. 1 mm nonobstructing stone at a lower pole calyx of the right kidney. No ureteral stones or hydronephrosis. 2. Nonspecific subtle haziness to the omental fat in the right lower quadrant which could be related to age-indeterminate omental infarct. Appendix is normal. 3. Small amount of ascites in the pelvis which could be reactive or physiologic. Discharge Plan Discharge Clinical Impression: Right kidney stone, Bacterial vaginosis Urinary tract infection Qualifiers: Urinary tract infection type: acute cystitis Hematuria presence: with hematuria Qualified Code(s): N30.01 - Acute cystitis with hematuria Patient Disposition: Home, Self-Care Condition: Stable Instructions: Antibiotic Form, Kidney Stones (ED), Urinary Tract Infection in Women (ED) Additional Instructions: Utilize metronidazole ointment as prescribed for BV. Take antibiotics as prescribed for urinary tract infection. Stay well hydrated. Follow-up with your primary care doctor and OBGYN for further evaluation. Recommend follow-up with urology for evaluation of right-sided kidney stone. Return to the ED if you experience worsening or severe pain, severe bleeding, unable to keep down food or drink, fevers, difficulty urinating, or any other symptoms of concern. Patient Language: Turkish Prescriptions: New metronidazole 1.3 % (65 mg/5 gram) gel 1 appful vaginal HS Qty: 5 0RF cephalexin 500 mg capsule 500 mg PO Q6H 7 Days Qty: 28 0RF No Action metronidazole 1.3 % (65 mg/5 gram) gel 1 appful vaginal ONCE Qty: 5 0RF Rx Instructions: as a single dose at bedtime metronidazole 1.3 % (65 mg/5 gram) gel 1 appful vaginal ONCE Qty: 5 0RF Rx Instructions: as a single dose at bedtime metronidazole 0.75 % (37.5mg/5 gram) gel 1 appful vaginal DAILY 5 Days Qty: 70 0RF Follow-up/Referrals: Jonathon De La Paz MD [Physician] - (UROLOGY) UNKNOWN,DOCTOR [Primary Care Provider] - Time of Disposition: 11:41
[2024-06-16 09:23] VITALS: BP 116/83; PULSE 77; RESP 16; O2SAT 100
[2024-06-16 09:25] LABS: BEDSIDEPREGUCG Negative (Negative)
[2024-06-16 09:30] LABS: Add Urine Microscopic? YES; Appearance Urine Turbid (Clear); Bacteria Urine 4+ /hpf; Bilirubin Urine Negative (Negative); Blood Urine 3+ (Negative); Color Urine Yellow (Yellow); Glucose Urine UA Negative (Negative); Ketones Urine Negative (Negative); Leukocyte Esterase Ur 3+ LEU/UL (Negative); Nitrate Urine Positive (Negative); Non Pathogenic Casts 0-2; Protein Urine 2+ mg/dL (Negative); RBC Urine >100 /hpf (0-2); Squamous Epithelial Cell Urine None Seen /hpf (Few); WBC Urine >100 /hpf (0-3); pH Urine 7.5 (5.0-9.0)
[2024-06-16 10:40] LABS: Trichomonas Vag PCR NOT DETECTED (NOT DETECTE)
[2024-06-16 11:03] LABS: Chlamydia trachomatis NOT DETECTED (NOT DETECTE); Neisseria gonorrhoeae PCR NOT DETECTED (NOT DETECTE)
[2024-06-16 11:32] VITALS: BP 117/83; PULSE 83; RESP 14; O2SAT 100
[2024-06-16] MEDS: FLUCONAZOLE 150 MG TABLET PO (11:52)
[2024-06-17 09:38] LABS: Bacterial Vaginosis POSITIVE (NEGATIVE)
== END 2024-06-16 11:53 | disposition home or self-care (01) ==
PROVIDERS: Emergency Provider Physician Assistant
DX: N20.0 Calculus of kidney (principal); N76.0 Acute vaginitis; N30.01 Acute cystitis with hematuria; Z11.3 Encounter for screening for infections with a predominantly sexual mode of transmission
CPT/HCPCS: 74176; 81001; 81025; 81513; 87086; 87186; 87491; 87591; 87661; 99284; A9270

== ENCOUNTER 2024-08-26 17:58 | Emergency (ER) | payer OTHER, SELFPAY ==
--- OUTSIDE RECORDS SUMMARY | 2024-08-26 18:00 | XMS_ITS | Data Portability ---
Author Organization [facility] KAIParticio Address [address] [place] [address] Assessment Encounter Date Assessment Date Assessment LastModified [...] been taking OTC anti nausea supplement from [facility] which helped with nausea. Preferred u/s scheduling at [facility]. Pt. to RTC in 2 weeks, first trimester screen then. Not available 08/07/2016 11:35:51 Plan of Treatment Reminders Order Date Submit Date Provider Last Modified By Organization Details Last Modified Time Details Appointments None recorded. Lab urinalysi s, dipstick 2024 025 [email or web address] In-Office Order, Internal Use Only DO Not Attach Compendium DO Not Attach Compendium, Do Not Delete/merge, [id number] 5 16:50:26 urinalysi s, dipstick, reflex micro 2024 025 [facility] (Lab), [address], [place], [address], 5 22:09:52 unlisted lab - CT, NG, trich vag by KRISTI 2024 025 [facility] (Lab), [address], [place], [address], 5 11:09:43 urinalysi s, dipstick 2016 017 In-Office Order, Internal Use Only DO Not Attach Compendium DO Not Attach Compendium, Do Not Delete/merge, [id number] 7 11:32:12 cf (cystic fibrosis) profile 2016 017 [email or web address] [facility], [address], [address], [place], [address], 7 11:37:58 CBC w/ auto diff 2016 017 SALLIE [facility], [address], [place], [address], 7 15:43:11 HIV (1+2) Ab screen, serum 2016 017 SALLIE [facility], [address], [address], [place], [address], 7 06:16:20 HBsAg (hepatiti s B surface Ag), confirmat ion, serum 2016 017 [email or web address] [facility], [address], [address], [place], [address], 7 17:51:31 rubella igg Ab screen, serum 2016 017 SALLIE [facility], [address] [address], [place], [address], 7 14:27:52 varicella -zoster igg Ab screen, serum 2016 017 SALLIE [facility], [address], [place], [address], 7 14:27:44 drug screen, 5 drugs, urine 2016 017 SALLIE [facility], [address] [place], [place] [address], [address], [place], [address], 7 16:29:38 culture, urine 2016 017 SALLIE [facility], [address] [place] [address] [address], [place], [address], 7 00:20:05 urinalysi s, complete 2016 017 [place] [address] [facility], [address] [address], [place], [address], 7 11:37:59 hemoglobi n S (hbs), presence, blood 2016 017 SALLIE [facility], [address], [place], [address], 7 14:27:07 abo group + rh type, blood 2016 017 [place] [address] [facility], [address] [address], [place], [address], 7 11:37:59 RPR (rapid plasma reagin), quantitat emerald, serum 2016 017 dcochranma [facility], [address] [facility] [address], [place], [address], 7 17:52:26 test, urine 2016 017 In-Office Order, Internal Use Only DO Not Attach Compendium DO Not Attach Compendium, Do Not Delete/merge, [id number] 7 12:59:38 CT + NG + TV, DNA, urine/swa b 2016 017 SALLIE [facility] (Lab), [address], [place], [address], 7 08:51:18 HIV (1+2) Ab screen, serum 2015 016 DBA_PATCH_2 [id number] [facility], [address] [facility], [address], [place], [address], 6 04:31:39 HBsAg (hepatiti s B surface Ag), serum 2015 016 DBA_PATCH_2 [id number] [facility], [address] [facility], [address], [place], [address], 6 04:31:39 RPR (rapid plasma reagin), serum 2015 016 DBA_PATCH_2 [id number] [facility], [address] [facility], [address], [place], [address], 6 04:31:39 CT + NG + TV, DNA, urine/swa b 2015 016 DBA_PATCH_2 [id number] [facility] (Lab), [address], [place], [address], 6 04:31:39 Referral None recorded. Procedures None recorded. Surgeries None recorded. Imaging US, obstetric , 1st trimester - ARRIVE WITH FULL BLADDER, NO SMALL CHILDREN. ARRIVE 15MIONS PRIOR TO SCHEDULED APPT. 2016 017 [facility] ([facility] [address] [facility], [place], [address], 7 11:14:21 Medication Orders nitrofura ntoin monohydra te/macroc rystals 100 mg capsule 2024 025 [facility] #81340, [address], [place], [place], [id number], 5 17:07:59 Pyridium 200 mg tablet 2024 025 [facility] #70389, [address], [place], [place], [id number], 5 17:07:57 fluconazo le 150 mg tablet 2024 025 [facility] #36125, [address], [place], [place], [id number], 5 17:07:59 PNV-Selec t 27 mg-1 mg tablet 2016 017 INTERFACE [facility], [address] [place] [address], [id number], 7 12:59:45 Flagyl 500 mg tablet 2015 016 DBA_PATCH_2 [id number] [facility] #57535, [address] [place] [address], [id number], 6 04:31:47 Patient TargetsNo targets recorded. Patient Instructions Encounter Date Encounter Id Patient Instructions Last Modified By Organization Details Last Modified Time 06/14/2024 [id number] Urinary Tract Infection (UTI) in Women: Care [...] DO Not Attach Compendium, Do Not Delete/merge, [id number] 08/07/2016 11:05:40 08/08/19 17 08/07/2016 urina lysis [...] 08/07/2016 urina lysis , dipst ick Specific [place] 1.025 Not Available In-Off ice Order Internal [...] DO Not Attach Compendium, Do Not Delete/merge, [id number] 08/07/2016 11:05:40 08/08/19 17 08/07/2016 urina lysis , dipst ick Glucose Negati ve Not Available In-Office Order Internal Use Only DO Not Attach Compendium DO Not Attach Compendium, Do Not Delete/merge, [id number] 08/07/2016 11:05:40 08/08/19 17 08/07/2016 urina lysis , dipst ick Appearance Clear Not Available In-Offi ce Order Internal Use Only DO Not Attach Compendium DO Not Attach Compendium, Do Not Delete/merge, [id number] 08/07/2016 11:05:40 08/08/19 17 08/07/2016 urina lysis , dipst ick Color Yellow Not Available In-Office Order Internal Use Only DO Not Attach Compendium DO Not Attach Compendium, Do Not Delete/merge, [id number] 08/07/2016 11:05:40 07/17/19 17 07/16/2016 pregn jose test, urine HCG positi ve Not Available In-Office Order Internal Use Only DO Not Attach Compendium DO Not Attach Compendium, Do Not Delete/merge, [id number] 07/16/2016 12:46:42 10/25/19 16 10/26/2015 pap, IG + CT/NG /TV age gdln acog testing 21-29 Not Available [facility] ([facility]) [address] [facility] [address], [place], [address], 10/31/2015 10:11:25 10/25/19 16 10/30/2015 pap, IG + CT/NG /TV diagnosis: COMMEN T abnormal EPITH ELIAL CELL ABNOR MALIT Y. LOW-G RADE SQUAM OUS INTRA EPITH ELIAL LESIO N (LGSI L); MILD DYSPL NICKOLAS IS PRESE NT. Not Available [facility] ([facility]) [address] [facility] [address], [place], [address], 10/31/2015 10:11:25 10/25/19 16 10/30/2015 pap, IG + CT/NG /TV recommendati on: NOELLE Spaulding abnormal SUGGE ST FOLLO W UP CLINI BEN APPRO PRIAT E. Not Available [facility] ([facility]) [address] [facility] [address], [place], [address], 10/31/2015 10:11:25 10/25/19 16 10/30/2015 pap, IG + CT/NG /TV specimen adequacy: NOELLE Spaulding SATIS FACTO RY FOR EVALU ATION . ENDOC ERVIC AL AND/O R SQUAM OUS METAP LASTI C CELLS (ENDO CERVI ARIA COMPO NENT) ARE PRESE NT. Not Available [facility] ([facility]) [address] [facility], [place], [address], 10/31/2015 10:11:25 10/25/19 16 10/30/2015 pap, IG + CT/NG /TV clinician provided ICD10: NOELLE Spaulding Z01.4 19 Not Available [facility] ([facility]) [address] [facility], [place], [address], 10/31/2015 10:11:25 10/25/19 16 10/30/2015 pap, IG + CT/NG /TV performed by: NOELLE Booth, CYTOT ECHNO LOGIS T (ASCP ) Not Available [facility] ([facility]) [address] [facility], [place], [address], 10/31/2015 10:11:25 10/25/19 16 10/30/2015 pap, IG + CT/NG /TV electronical ly signed by: NOELLE ABAD MD, PATHO LOGIS T Not Available [facility] ([facility]) [address] [place], [address], 10/31/2015 10:11:25 10/25/19 16 10/30/2015 pap, IG + CT/NG /TV . . Not Available [facility] ([facility]) [address] [place], [address], 10/31/2015 10:11:25 08/05/20 16 10/30/2015 pap, IG + CT/NG /TV pathologist provided ICD10: NOELLE Spaulding R87.6 12 Not Available [facility] ([facility]) [address] [place], [address], 10/31/2015 10:11:25 10/25/19 16 10/30/2015 pap, IG [...] TS DO OCCUR . Not Available [facility] ([facility]) [address] [facility], [place], [address], 10/31/2015 10:11:25 10/25/19 16 10/30/2015 pap, IG + CT/NG /TV test methodology: COMMEN T THIS LIQUI D BASED THINP REP(R ) PAP TEST WAS SCREE KALEE WITH THE USE OF AN IMAGE GUIDE Tabitha Gonzalez. Not Available [facility] ([facility]) [address] [place], [address], 10/31/2015 10:11:25 10/25/19 16 10/30/2015 pap, IG + CT/NG /TV . COMMEN T THE HPV DNA REFLE X CRITE ETELVINA WERE NOT MET WITH THIS SPECI MEN RESUL T THERE FORE, NO HPV TESTI NG WAS PERFO RMED. Not Available [facility] ([facility]) [address] [place], [address], 10/31/2015 10:11:25 10/25/19 16 10/31/2015 pap, IG + CT/NG /TV chlamydia, nuc. acid amp NEGATI VE negati ve Not Available [facility] ([facility]) [address] [place], [address], 10/31/2015 10:11:25 10/25/19 16 10/31/2015 pap, IG + CT/NG /TV gonococcus, nuc. acid amp NEGATI VE negati ve Not Available [facility] ([facility]) [address] [facility], [place], [address], 10/31/2015 10:11:25 10/25/19 16 10/31/2015 pap, IG + CT/NG /TV trich vag by KRISTI NEGATI VE negati ve Not Available [facility] ([facility]) [address] [facility], [place], [address], 10/31/2015 10:11:25 10/25/19 16 10/31/2015 pap, IG + CT/NG /TV papig HPV age gdln acog 21-29 Not Available [facility] (Lab) [address] [place], [address], 10/31/2015 15:27:29 10/25/19 16 10/31/2015 pap, IG + CT/NG /TV diagnosis: SPRCS abnormal EPITH ELIAL CELL ABNOR MALIT Y. LOW-G RADE SQUAM OUS INTRA EPITH ELIAL LESIO N (LGSI L); MILD DYSPL NICKOLAS IS PRESE NT. Perfo rmed at: WB Not Available [facility] (Lab) [address] [place], [address], 10/31/2015 15:27:29 10/25/19 16 10/31/2015 pap, IG + CT/NG /TV recommendati on: SPRCS abnormal Sugge st follo w up as clini ben appro priat e. Perfo rmed at: WB Not Available [facility] (Lab) [address] [facility], [place], [address], 10/31/2015 15:27:29 10/25/19 16 10/31/2015 pap, IG + CT/NG /TV specimen adequacy: SPRCS Satis facto ry for evalu ation . Endoc ervic al and/o r squam ous metap lasti c cells (endo cervi aria compo nent) are prese nt. Perfo rmed at: WB Not Available [facility] (Lab) [address] [facility], [place], [address], 10/31/2015 15:27:29 10/25/19 16 10/31/2015 pap, IG + CT/NG /TV clinician provided ICD10 [facility] Z01.4 19 Perfo rmed at: WB Not Available [facility] (Lab) [address] [facility] [address] [facility], [place], [address], 10/31/2015 15:27:29 10/25/19 16 10/31/2015 pap, IG + CT/NG /TV performed by: [facility] Madan booth, Cytot echno logis t (ASCP ) Perfo rmed at: WB Not Available [facility] (Lab) [address] [facility], [place], [address], 10/31/2015 15:27:29 10/25/19 16 10/31/2015 pap, IG + CT/NG /TV electronical ly signed [facility] Ivory Abad MD, Patho logis t Perfo rmed at: WB Not Available [facility] (Lab) [address] [facility], [place], [address], 10/31/2015 15:27:29 10/25/19 16 10/31/2015 pap, IG + CT/NG /TV Pap smear, 1 slide . Perfo rmed at: WB Not Available [facility] (Lab) [address] [facility], [place], [address], 10/31/2015 15:27:29 10/25/19 16 10/31/2015 pap, IG + CT/NG /TV pathologist provided ICD10 [facility] R87.6 12 Perfo rmed at: WB Not Available [facility] (Lab) [address] [facility], [place], [address], 10/31/2015 15:27:29 10/25/19 16 10/31/2015 pap, IG [...] . Perfo rmed at: WB Not Available [facility] (Lab) [address] [place], [address], 10/31/2015 15:27:29 10/25/19 16 10/31/2015 pap, IG + CT/NG /TV test methodology: IGLPAP This liqui d based ThinP rep(R ) pap test was scree kalee with the use of an image guide tabitha gonzalez. Perfo rmed at: WB Not Available [facility] (Lab) [address] [place], [address], 10/31/2015 15:27:29 10/25/19 16 10/31/2015 pap, IG + CT/NG /TV comments NEGHPV The HPV DNA refle x crite etelvina were not met with this speci men resul t there fore, no HPV testi ng was perfo rmed. . Perfo rmed at: WB Not Available [facility] (Lab) [address] [place], [address], 10/31/2015 15:27:29 10/25/19 16 10/31/2015 pap, IG + CT/NG /TV chlamydia, nuc. acid Negati ve negati ve Perfo rmed at: =G Not Available [facility] (Lab) [address] [place], [address], 10/31/2015 15:27:29 10/25/19 16 10/31/2015 pap, IG + CT/NG /TV gonococcus, nuc. acid amp Negati ve negati ve Perfo rmed at: =G Not Available [facility] (Lab) [address] [place], [address], 10/31/2015 15:27:29 10/25/19 16 10/31/2015 pap, IG + CT/NG /TV trich vag by KRISTI Negati ve negati ve Perfo rmed at: =G Not Available [facility] (Lab) [address] [facility], [place], [address], 10/31/2015 15:27:29 10/25/19 16 10/31/2015 pap, IG + CT/NG /TV papig HPV age gdln acog 21-29 Not Available [facility] (Lab) [address] [place], [address], 10/31/2015 15:27:24 10/25/19 16 10/31/2015 pap, IG + CT/NG /TV diagnosis: SPRCS abnormal EPITH ELIAL CELL ABNOR MALIT Y. LOW-G RADE SQUAM OUS INTRA EPITH ELIAL LESIO N (LGSI L); MILD DYSPL NICKOLAS IS PRESE NT. Perfo rmed at: WB Not Available [facility] (Lab) [address] [facility], [place], [address], 10/31/2015 15:27:24 10/25/19 16 10/31/2015 pap, IG + CT/NG /TV recommendati on: SPRCS abnormal Sugge st follo w up as clini ben appro priat e. Perfo rmed at: WB Not Available [facility] (Lab) [address] [facility], [place], [address], 10/31/2015 15:27:24 10/25/19 16 10/31/2015 pap, IG + CT/NG /TV specimen adequacy: SPRCS Satis facto ry for evalu ation . Endoc ervic al and/o r squam ous metap lasti c cells (endo cervi aria compo nent) are prese nt. Perfo rmed at: WB Not Available [facility] (Lab) [address] [place], [address], 10/31/2015 15:27:24 10/25/19 16 10/31/2015 pap, IG + CT/NG /TV clinician provided ICD10 [facility] Z01.4 19 Perfo rmed at: WB Not Available [facility] (Lab) [address] [facility], [place], [address], 10/31/2015 15:27:24 10/25/19 16 10/31/2015 pap, IG + CT/NG /TV performed by: [facility] Madan n, Cytot echno logis t (ASCP ) Perfo rmed at: WB Not Available [facility] (Lab) [address] [facility], [place], [address], 10/31/2015 15:27:24 10/25/19 16 10/31/2015 pap, IG + CT/NG /TV electronical ly signed [facility] Ivory Abad MD, Patho logis t Perfo rmed at: WB Not Available [facility] (Lab) [address] [facility], [place], [address], 10/31/2015 15:27:24 10/25/19 16 10/31/2015 pap, IG + CT/NG /TV Pap smear, 1 slide . Perfo rmed at: WB Not Available [facility] (Lab) [address] [facility], [place], [address], 10/31/2015 15:27:24 10/25/19 16 10/31/2015 pap, IG + CT/NG /TV pathologist provided ICD10 [facility] R87.6 12 Perfo rmed at: WB Not Available [facility] (Lab) [address] [place], [address], 10/31/2015 15:27:24 10/25/19 16 10/31/2015 pap, IG [...] . Perfo rmed at: WB Not Available [facility] (Lab) [address], [place], [address], 10/31/2015 15:27:24 10/25/19 16 10/31/2015 pap, IG + CT/NG /TV test methodology: IGLPAP This liqui d based ThinP rep(R ) pap test was scree kalee with the use of an image guide d systnona m. Perfo rmed at: WB Not Available [facility] (Lab) [address] [place], [address], 10/31/2015 15:27:24 10/25/19 16 10/31/2015 pap, IG + CT/NG /TV comments NEGHPV The HPV DNA refle x crite etelvina were not met with this speci men resul t there fore, no HPV testi ng was perfo rmed. . Perfo rmed at: WB Not Available [facility] (Lab) [address] [facility], [place], [address], 10/31/2015 15:27:24 10/25/19 16 10/31/2015 pap, IG + CT/NG /TV chlamydia, nuc. acid Negati ve negati ve Perfo rmed at: =G Not Available [facility] (Lab) [address] [facility], [place], [address], 10/31/2015 15:27:24 10/25/19 16 10/31/2015 pap, IG + CT/NG /TV gonococcus, nuc. acid amp Negati ve negati ve Perfo rmed at: =G Not Available [facility] (Lab) [address] [place], [address], 10/31/2015 15:27:24 10/25/19 16 10/31/2015 pap, IG + CT/NG /TV trich vag by KRISTI Negati ve negati ve Perfo rmed at: =G Not Available [facility] (Lab) [address] [place], [address], 10/31/2015 15:27:24 02/10/20 16 02/11/2016 HIV (1+2) Ab scree n, serum HIV 4TH generation Non Reacti ve non reacti ve Not Available [facility] (Lab) [address] [place], [address], 02/11/2016 08:26:48 02/10/20 16 02/11/2016 CT + NG + TV, DNA, urine /swab chlamydia by KRISTI Negati ve negati ve Not Available [facility] (Lab) [address] [place], [address], 02/12/2016 01:24:55 02/10/20 16 02/11/2016 CT + NG + TV, DNA, urine /swab gonococcus by KRISTI Negati ve negati ve Not Available [facility] (Lab) [address] [place], [address], 02/12/2016 01:24:55 02/10/20 16 02/11/2016 CT + NG + TV, DNA, urine /swab trich vag by KRISTI Negati ve negati ve Not Available [facility] (Lab) [address] [place], [address], 02/12/2016 01:24:55 02/10/20 16 02/12/2016 RPR (rapi d plasm a reagi n), serum RPR Non Reacti ve non reacti ve Not Available [facility] (Lab) [address] [place], [address], 02/12/2016 04:21:25 02/10/20 16 02/12/2016 HBsAg (hepa titis B surfa ce Ag), serum HBsAg screen Negati ve negati ve Not Available [facility] (Lab) [address] [place], [address], 02/12/2016 04:29:25 07/17/19 17 07/16/2016 CBC w/ auto diff WBC 4.8 K/uL 3.4-10 .8 Not Available [facility] (Lab) [address] [place], [address], 07/16/2016 15:43:11 07/17/19 17 07/16/2016 CBC w/ auto diff red blood count 4.3 M/uL 4.2-5. 4 Not Available [facility] (Lab) [address] [place], [address], 07/16/2016 15:43:11 07/17/19 17 07/16/2016 CBC w/ auto diff hemoglobin 12.1 g/dL 11.5-1 5.5 Not Available [facility] (Lab) [address] [place], [address], 07/16/2016 15:43:11 07/17/19 17 07/16/2016 CBC w/ auto diff hematocrit 37.7 % 36.0-4 8.0 Not Available [facility] (Lab) [address] [place], [address], 07/16/2016 15:43:11 07/17/19 17 07/16/2016 CBC w/ auto diff MCV 88 fL 80-95 Not Available [facility] (Lab) [address] [place], [address], 07/16/2016 15:43:11 07/17/19 17 07/16/2016 CBC w/ auto diff MCH 28 pg 27-32 Not Available [facility] ([facility]) [address] [place], [address], 07/16/2016 15:43:11 07/17/19 17 07/16/2016 CBC w/ auto diff MCHC 32 g/dL 32-36 Not Available [facility] (Lab) [address] [place], [address], 07/16/2016 15:43:11 07/17/19 17 07/16/2016 CBC w/ auto diff platelets 152 K/uL 155-37 9 low Not Available [facility] (Lab) [address] [place], [address], 07/16/2016 15:43:11 07/17/19 17 07/16/2016 CBC w/ auto diff RDW 12.6 % 11.5-1 4.5 Not Available [facility] (Lab) [address], [place], [address], 07/16/2016 15:43:11 07/17/19 17 07/16/2016 CBC w/ auto diff MPV 12.1 fL 8.9-12 .7 Not Available [facility] (Lab) [address] [place], [address], 07/16/2016 15:43:11 07/17/19 17 07/16/2016 CBC w/ auto diff neutrophils absolute 2.6 K/uL 1.4-7. 0 Not Available [facility] (Lab) [address] [place], [address], 07/16/2016 15:43:11 07/17/19 17 07/16/2016 CBC w/ auto diff lymphs (absolute) 1.5 K/uL 0.7-3. 1 Not Available [facility] (Lab) [address] [place], [address], 07/16/2016 15:43:11 07/17/19 17 07/16/2016 CBC w/ auto diff monocytes (absolute) 0.4 K/uL 0.1-0. 9 Not Available [facility] (Lab) [address] [place], [address], 07/16/2016 15:43:11 07/17/19 17 07/16/2016 CBC w/ auto diff eos (absolute) 0.3 K/uL 0.0-0. 4 Not Available [facility] (Lab) [address] [place], [address], 07/16/2016 15:43:11 07/17/19 17 07/16/2016 CBC w/ auto diff baso (absolute) 0.0 K/uL 0.1-0. 3 low Not Available [facility] ([facility]) [address] [place], [address], 07/16/2016 15:43:11 07/17/19 17 07/16/2016 CBC w/ auto diff neut % 53.6 % 40.0-7 4.0 Not Available [facility] ([facility]) [address], [place], [address], 07/16/2016 15:43:11 07/17/19 17 07/16/2016 CBC w/ auto diff lymphs % 30.5 % 14.0-4 6.0 Not Available [facility] ([facility]) [address] [place], [address], 07/16/2016 15:43:11 07/17/19 17 07/16/2016 CBC w/ auto diff mono % 8.6 % 4.0-12 .0 Not Available [facility] ([facility]) [address] [place], [address], 07/16/2016 15:43:11 07/17/19 17 07/16/2016 CBC w/ auto diff eos % 7 % <=5 high Not Available [facility] ([facility]) [address], [place], [address], 07/16/2016 15:43:11 07/17/19 17 07/16/2016 CBC w/ auto diff baso % 0.6 % 0.1-1. 1 Not Available [facility] ([facility]) [address] [place], [address], 07/16/2016 15:43:11 07/17/19 17 07/16/2016 urina lysis , dipst ick, refle x micro urhead1 URINAL YSIS, COMPLE TE Ur inalys is Gross Exam Not Available [facility] ([facility]) [address] [place], [address], 07/16/2016 16:10:37 07/17/19 17 07/16/2016 urina lysis , dipst ick, refle x micro specific gravity 1.020 1.001- 1.035 Not Available [facility] ([facility]) [address] [place], [address], 07/16/2016 16:10:37 07/17/19 17 07/16/2016 urina lysis , dipst ick, refle x micro pH 7.5 5.0-7. 0 high Not Available [facility] ([facility]) [address] [place], [address], 07/16/2016 16:10:37 07/17/19 17 07/16/2016 urina lysis , dipst ick, refle x micro urine-color LT. YELLOW yellow abnormal Not Available [facility] ([facility]) [address], [place], [address], 07/16/2016 16:10:37 07/17/19 17 07/16/2016 urina lysis , dipst ick, refle x micro appearance CLEAR clear Not Available [facility] ([facility]) [address], [place], [address], 07/16/2016 16:10:37 07/17/19 17 07/16/2016 urina lysis , dipst ick, refle x micro WBC esterase NEGATI VE uL negati ve Not Available [facility] ([facility]) [address], [place], [address], 07/16/2016 16:10:37 07/17/19 17 07/16/2016 urina lysis , dipst ick, refle x micro protein TRACE mg/dL negati ve abnormal Not Available [facility] ([facility]) [address] [place], [address], 07/16/2016 16:10:37 07/17/19 17 07/16/2016 urina lysis , dipst ick, refle x micro glucose NEGATI VE mg/dL negati ve Not Available [facility] (Lab) [address] [place], [address], 07/16/2016 16:10:37 07/17/19 17 07/16/2016 urina lysis , dipst ick, refle x micro ketones TRACE mg/dL negati ve abnormal Not Available [facility] (Lab) [address], [place], [address], 07/16/2016 16:10:37 07/17/19 17 07/16/2016 urina lysis , dipst ick, refle x micro occult blood NEGATI VE layo/u L negati ve Not Available [facility] (Lab) [address], [place], [address], 07/16/2016 16:10:37 07/17/19 17 07/16/2016 urina lysis , dipst ick, refle x micro bilirubin NEGATI VE negati ve Not Available [facility] [facility] (Lab[facility] [address], [place], [address], 07/16/2016 16:10:37 07/17/19 17 07/16/2016 urina lysis , dipst ick, refle x micro urobilinogen 0.2 Not Available [facility] (Lab) [address], [place], [address], 07/16/2016 16:10:37 07/17/19 17 07/16/2016 urina lysis , dipst ick, refle x micro nitrite, urine NEGATI VE negati ve Not Available [facility] (Lab) [address], [place], [address], 07/16/2016 16:10:37 07/17/19 17 07/16/2016 type + scree n, serum ABO/Rh typing B Rh Positi ve Not Available [facility] (Lab) [address] [place], [address], 07/16/2016 16:29:58 07/17/19 17 07/16/2016 type + scree n, serum id-mts antbdy screen NEGATI VE Not Available [facility] (Lab) [address] [place], [address], 07/16/2016 16:29:58 07/17/19 17 07/16/2016 drug scree n, urine urine phencylclind in NEGATI VE negati ve Not Available [facility] (Lab) [address] [place], [address], 07/16/2016 16:29:38 07/17/19 17 07/16/2016 drug scree n, urine urine cannabinoids NEGATI VE negati ve Not Available [facility] (Lab) [address], [place], [address], 07/16/2016 16:29:38 07/17/19 17 07/16/2016 drug scree n, urine urine amphetamines NEGATI VE negati ve Not Available [facility] (Lab) [address], [place], [address], 07/16/2016 16:29:38 07/17/19 17 07/16/2016 drug scree n, urine urine cocaine NEGATI VE negati ve Not Available [facility] (Lab) [address], [place], [address], 07/16/2016 16:29:38 07/17/19 17 07/16/2016 drug scree n, urine urine opiates NEGATI VE negati ve Not Available [facility] (Lab) [address], [place], [address], 07/16/2016 16:29:38 07/17/19 17 07/16/2016 drug scree n, urine urine barbiturates NEGATI VE negati ve Not Available [facility] (Lab) [address], [place], [address], 07/16/2016 16:29:38 07/17/19 17 07/16/2016 drug scree n, urine urine benzo diazepin NEGATI VE negati ve Not Available [facility] (Lab) [address] [place], [address], 07/16/2016 16:29:38 07/17/19 17 07/16/2016 drug scree n, urine udrscom This test provi dre only a scree ni suraj tical test resul t. A more speci fic alter kelsie chemi aria metho d must be order ed to obtai n a confi rmed suraj tical resul t. Not Available [facility] (Lab) [address], [place], [address], 07/16/2016 16:29:38 07/17/19 17 07/17/2016 HIV (1+2) Ab scree n, serum HIV 4TH generation Non Reacti ve non reacti ve Not Available [facility] (Lab) [address], [place], [address], 07/17/2016 06:16:20 07/17/19 17 07/17/2016 hemog lobin [...] fract ionat ion testi ng. Not Available [facility] (Lab) [address], [place], [address], 07/17/2016 14:27:07 07/17/19 17 07/17/2016 varic serjio- [...] or stage of disea se. Not Available [facility] (Lab) [address], [place], [address], 07/17/2016 14:27:44 07/17/19 17 07/17/2016 RPR (rapi d plasm a reagi n), quant itati ve, serum RPR Non Reacti ve non reacti ve Not Available [facility] (Lab) [address] [place], [address], 07/17/2016 14:27:45 07/17/19 17 07/17/2016 HBsAg (hepa titis B surfa ce Ag), confi rmati on, serum HBsAg screen Negati ve negati ve Not Available [facility] (Lab) [address], [place], [address], 07/17/2016 14:27:52 07/17/19 17 07/17/2016 rubel la igg Ab scree n, serum rubella antibodies, IgG 14.70 index immune >0.99 Non-i mmune <0.90 Equiv ocal 0.90 - 0.99 Immun e >0.99 Not Available [facility] (Lab) [address], [place], [address], 07/17/2016 14:27:52 07/17/19 17 07/17/2016 cultu re, urine urine culture, routine Final report Not Available [facility] (Lab) [address] [place], [address], 07/18/2016 00:20:05 07/17/19 17 07/17/2016 cultu re, urine result 1 LESS Cultu re shows less than 10,00 0 colon y formi ng units of bacte etelvina per daria liter of urine . This colon y count is not gener ally consi dered to be clini ben signi fican t. Not Available [facility] (Lab) [address], [place], [address], 07/18/2016 00:20:05 07/17/19 17 07/20/2016 CT + NG + TV, DNA, urine /swab chlamydia by KRISTI Negati ve negati ve Not Available [facility] (Lab) [address] [place], [address], 07/20/2016 08:51:18 07/17/19 17 07/20/2016 CT + NG + TV, DNA, urine /swab gonococcus by KRISTI Negati ve negati ve Not Available [facility] (Lab) [address], [place], [address], 07/20/2016 08:51:18 07/17/1907/20/2016 CT + NG + TV, DNA, urine /swab trich vag by KRISTI Negati ve negati ve Not Available [facility] (Lab) [address], [place], [address], 07/20/2016 08:51:18 07/17/1907/27/2016 cf (cyst ic fibro sis) profi le interpretati on: No varian t detect ed. Not Available [facility] (Lab) [address], [place], [address], 07/27/2016 18:10:35 07/17/1907/27/2016 cf (cyst ic fibro [...] [facility] Jennifer ic Servi viktor at [phone] for a martina ed repor t. Mutat [...] Med 3:168 ,2000 ; www.d .[place] .gov/ [facility]/ gdb /html /PDE/ CFStu dy.ht m Jewis h, - Varie s by Jennifer Testi joey 5:47, 2000 non-A shken amy count ry Jennifer Testi joey, 1:35, 1996 of origi n Other or Mixed - Not Detec tion rate not [facility] Provi ded deter mined and varie s with [facility] This inter preta tion is based on [...] the 97 CF mutat ions on the [facility] rsal Array [employer] orm (Zoila nex). Regio [...] ducti ve age, as an aid in [facility] scree ni, and as a confi rmato ry test for anoth er medic ally estab lishe d diagn osis in [facility] and child mundo. The test is not inten ded for use in diagn ostic testi ng, pre-i mplan tatio n scree ni, or for any stand -niharika e diagn ostic purpo ses witho ut confi rmati on by anoth er medic ally estab lishe d diagn ostic produ ct or proce dure. Resul ts Relea sed By: Rigo sierra, Ph.D. , [facility] tor Repor t Relea sed By: Rigo sierra, Ph.D. , Dire tor Not Available [facility] (Lab) [address] [place], [address], 07/27/2016 18:10:35 06/15/19 25 06/14/2024 URINA LYSIS W/REF GRAHAM URINE CULT color urine RED yellow abnormal Not Available [facility] (Lab) [address], [place], [address], 06/14/2024 22:09:51 06/15/19 25 06/14/2024 URINA LYSIS W/REF GRAHAM URINE CULT appearance urine CLOUDY clear abnormal Not Available [facility] (Lab) [address] [place], [address], 06/14/2024 22:09:51 06/15/19 25 06/14/2024 URINA LYSIS W/REF GRAHAM URINE CULT pH urine 6.5 5.0 - 7.0 normal Not Available [facility] (Lab) [address] [place], [address], 06/14/2024 22:09:51 06/15/19 25 06/14/2024 URINA LYSIS W/REF GRAHAM URINE CULT specific gravity urine >=1.03 0 1.005- 1.030 abnormal Not Available [facility] (Lab) [address] [place], [address], 06/14/2024 22:09:51 06/15/19 25 06/14/2024 URINA LYSIS W/REF GRAHAM URINE CULT protein urine >=300 mg/dL neg/tr krystin abnormal Not Available [facility] (Lab) [address] [place], [address], 06/14/2024 22:09:51 06/15/19 25 06/14/2024 URINA LYSIS W/REF GRAHAM URINE CULT glucose urine UA NEGATI VE mg/dL negati ve normal Not Available [facility] (Lab) [address] [place], [address], 06/14/2024 22:09:51 06/15/19 25 06/14/2024 URINA LYSIS W/REF GRAHAM URINE CULT ketones urine TRACE negati ve abnormal Not Available [facility] (Lab) [address] [place], [address], 06/14/2024 22:09:51 06/15/19 25 06/14/2024 URINA LYSIS W/REF GRAHAM URINE CULT occult blood urine LARGE layo/u L negati ve abnormal Not Available [facility] (Lab) [address] [place], [address], 06/14/2024 22:09:51 06/15/19 25 06/14/2024 URINA LYSIS W/REF GRAHAM URINE CULT nitrite urine POSITI VE negati ve abnormal Not Available [facility] (Lab) [address] [place], [address], 06/14/2024 22:09:51 06/15/19 25 06/14/2024 URINA LYSIS W/REF GRAHAM URINE CULT bilirubin urine SMALL negati ve abnormal Not Available [facility] (Lab) [address] [place], [address], 06/14/2024 22:09:51 06/15/19 25 06/14/2024 URINA LYSIS W/REF RGAHAM URINE CULT urobilinogen urine 1.0 eu/dL 0.2 - 1.[address] [facility] (Lab) [address] [place], [address], 06/14/2024 22:09:51 06/15/19 25 06/14/2024 URINA LYSIS W/REF GRAHAM URINE CULT leukocyte esterase urine TRACE negati ve Not Available [facility] (Lab) [address] [place], [address], 06/14/2024 22:09:51 06/15/19 25 06/14/2024 URINE MICRO SCOPI C urine culture indicated? Yes Not Available [facility] (Lab) [address] [place], [address], 06/14/2024 22:30:35 06/15/19 25 06/14/2024 URINE MICRO SCOPI C RBC urine >50 /hpf 0-2 abnormal Not Available [facility] (Lab) [address] [place], [address], 06/14/2024 22:35:47 06/15/19 25 06/14/2024 URINE MICRO SCOPI C WBC urine 30-50 /hpf 0-5 abnormal Not Available [facility] (Lab) [address] [place], [address], 06/14/2024 22:35:47 06/15/19 25 06/14/2024 URINE MICRO SCOPI C WBC clumps urine 2+ /hpf not estb. Not Available [facility] (Lab) [address] [place], [address], 06/14/2024 22:35:47 06/15/1906/14/2024 URINE MICRO SCOPI C squamous epithelial cell urine OCCASI ONAL not estb. Not Available [facility] (Lab) [address] [facility], [place], [address], 06/14/2024 22:35:47 06/15/1906/14/2024 URINE MICRO SCOPI C bacteria urine 1+ none/t race abnormal Not Available [facility] (Lab) [address] [facility], [place], [address], 06/14/2024 22:35:47 06/15/1906/14/2024 URINE MICRO SCOPI C urine culture indicated? Yes Not Available [facility] (Lab) [address], [place], [address], 06/14/2024 22:35:47 06/15/19 25 06/19/2024 URINE CULTU RE, ROUTI NE urine culture, routine Organ ism: Esche sascha a coli : *ABNO RMAL* Cefaz denver with an SHANTHI <=16 predi cts susce ptibi lity to the oral agent s cefac lissa, cefdi sigifredo, cefpo doxim e, cefpr ozil, cefur oxime , cepha lexin , and lorac arbef when used for thera py of uncom plica teri urina ry tract infec tions due to E. coli, Klebs iella pneum oniae , and Prote us mirab ilis. Great er than 100,0 00 colon y formi ng units per mL Mixed uroge nital jaime 25,00 0-50, 000 colon y formi ng units per mL Not Available [facility] (Lab) [address] [place], [address], 06/19/2024 18:11:44 06/15/19 25 06/19/2024 URINE CULTU RE, ROUTI NE O:esccol Isolat ed Not Available [facility] (Lab) [address] [place], [address], 06/19/2024 18:11:44 06/15/19 25 06/17/2024 CT, NG, TRICH VAG BY KRISTI chlamydia by KRISTI NEGATI VE negati ve Not Available [facility] (Lab) [address] [place], [address], 06/17/2024 11:09:43 06/15/19 25 06/17/2024 CT, NG, TRICH VAG BY KRISTI gonococcus by KRISTI NEGATI VE negati ve Not Available [facility] (Lab) [address] [place], [address], 06/17/2024 11:09:43 06/15/19 25 06/17/2024 CT, NG, TRICH VAG BY KRISTI trich vag by KRISTI NEGATI VE negati ve Perfo rmed at: 01 - [facility] [place] [address] [facility], [place] , [place] [address] Lab Direc tor: Karey castellano MD, Phone : [phone] Not Available [facility] (Lab) [address] [place], [address], 06/17/2024 11:09:43 06/15/19 25 06/19/2024 LABCO RP SUSCE PTIBI LITY amoxicillin/ clavulanate susceptib le Not Available [facility] (Lab) [address] [place], [address], 06/19/2024 18:11:45 06/15/19 25 06/19/2024 LABCO RP SUSCE PTIBI LITY ampicillin susceptib le Not Available [facility] (Lab) [address] [place], [address], 06/19/2024 18:11:45 06/15/19 25 06/19/2024 LABCO RP SUSCE PTIBI LITY cefazolin susceptib le Not Available [facility] (Lab) [address] [place], [address], 06/19/2024 18:11:45 06/15/19 25 06/19/2024 LABCO RP SUSCE PTIBI LITY cefepime susceptib le Not Available [facility] (Lab) [address] [place], [address], 06/19/2024 18:11:45 06/15/19 25 06/19/2024 LABCO RP SUSCE PTIBI LITY cefoxitin susceptib le Not Available [facility] (Lab) [address] [place], [address], 06/19/2024 18:11:45 06/15/19 25 06/19/2024 LABCO RP SUSCE PTIBI LITY cefpodoxime susceptib le Not Available [facility] (Lab) [address] [place], [address], 06/19/2024 18:11:45 06/15/19 25 06/19/2024 LABCO RP SUSCE PTIBI LITY ceftriaxone susceptib le Not Available [facility] (Lab) [address] [facility], [place], [address], 06/19/2024 18:11:45 06/15/19 25 06/19/2024 LABCO RP SUSCE PTIBI LITY ciprofloxaci n susceptib le Not Available [facility] (Lab) [address] [place], [address], 06/19/2024 18:11:45 06/15/19 25 06/19/2024 LABCO RP SUSCE PTIBI LITY ertapenem susceptib le Not Available [facility] (Lab) [address] [place], [address], 06/19/2024 18:11:45 06/15/19 25 06/19/2024 LABCO RP SUSCE PTIBI LITY gentamicin susceptib le Not Available [facility] (Lab) [address] [place], [address], 06/19/2024 18:11:45 06/15/19 25 06/19/2024 LABCO RP SUSCE PTIBI LITY levofloxacin susceptib le Not Available [facility] (Lab) [address] [place], [address], 06/19/2024 18:11:45 06/15/19 25 06/19/2024 LABCO RP SUSCE PTIBI LITY meropenem susceptib le Not Available [facility] (Lab) [address] [place], [address], 06/19/2024 18:11:45 06/15/19 25 06/19/2024 LABCO RP SUSCE PTIBI LITY nitrofuranto in susceptib le Not Available [facility] (Lab) [address] [place], [address], 06/19/2024 18:11:45 06/15/19 25 06/19/2024 LABCO RP SUSCE PTIBI LITY tetracycline susceptib le Not Available [facility] (Lab) [address] [place], [address], 06/19/2024 18:11:45 06/15/19 25 06/19/2024 LABCO RP SUSCE PTIBI LITY tobramycin susceptib le Not Available [facility] (Lab) [address] [place], [address], 06/19/2024 18:11:45 06/15/19 25 06/19/2024 LABCO RP SUSCE PTIBI LITY trimethoprim /sulfamethox azole resistant Not Available [facility] (Lab) [address] [place], [address], 06/19/2024 18:11:45 06/15/19 25 06/19/2024 LABCO RP SUSCE PTIBI LITY piperacillin /tazobactam susceptib le Not Available [facility] (Lab) [address] [place], [address], 06/19/2024 18:11:45 06/15/19 25 06/14/2024 urina lysis , dipst ick Leukocytes Large Not Available In-Offi ce Order Internal Use Only DO Not Attach Compendium DO Not Attach Compendium, Do Not Delete/merge, 06/14/2024 16:46:57 06/15/1906/14/2024 urina lysis , dipst ick Nitrite positi ve Not Available In-Office Order Internal Use Only DO Not Attach Compendium DO Not Attach Compendium, Do Not Delete/merge, 06/14/2024 16:46:57 06/15/1906/14/2024 urina lysis , dipst ick Urobilinogen 1 Not Available In-Of fice Order Internal Use Only DO Not Attach Compendium DO Not Attach Compendium, Do Not Delete/merge, 06/14/2024 16:46:57 06/15/1906/14/2024 urina lysis , dipst ick Protein 300 Not Available In-Office Order Internal Use Only DO Not Attach Compendium DO Not Attach Compendium, Do Not Delete/merge, 06/14/2024 16:46:57 06/15/1906/14/2024 urina lysis , dipst ick pH 6.0 Not Available In-Office Order Internal Use Only DO Not Attach Compendium DO Not Attach Compendium, Do Not Delete/merge, 06/14/2024 16:46:57 06/15/1906/14/2024 urina lysis , dipst ick Blood Large Not Available In-Office Order Internal Use Only DO Not Attach Compendium DO Not Attach Compendium, Do Not Delete/merge, 06/14/2024 16:46:57 06/15/1906/14/2024 urina lysis , dipst ick Specific [place] 1.030 Not Available In-Off ice Order Internal Use Only DO Not Attach Compendium DO Not Attach Compendium, Do Not Delete/merge, 06/14/2024 16:46:57 06/15/1906/14/2024 urina lysis , dipst ick Ketone Trace Not Available In-Office Order Internal Use Only DO Not Attach Compendium DO Not Attach Compendium, Do Not Delete/merge, 06/14/2024 16:46:57 06/15/19 06/14/2024 urina lysis , dipst ick Bilirubin Small Not Available In-Offic e Order Internal Use Only DO Not Attach Compendium DO Not Attach Compendium, Do Not Delete/merge, [id number] 06/14/2024 16:46:57 06/15/19 25 06/14/2024 urina lysis , dipst ick Glucose Negati ve Not Available In-Office Order Internal Use Only DO Not Attach Compendium DO Not Attach Compendium, Do Not Delete/merge, [id number] 06/14/2024 16:46:57 06/15/19 25 06/14/2024 urina lysis , dipst ick Appearance Cloudy Not Available In-Offi ce Order Internal Use Only DO Not Attach Compendium DO Not Attach Compendium, Do Not Delete/merge, [id number] 06/14/2024 16:46:57 06/15/19 25 06/14/2024 urina lysis , dipst ick Color Red Not Available In-Office Order Internal Use Only DO Not Attach Compendium DO Not Attach Compendium, Do Not Delete/merge, [id number] 06/14/2024 16:46:57 08/13/19 17 08/11/2016 US, obste tric, 1st trime ster No observ ation record ed. Not Available 2016 15:16:19 Result Notes None recorded. Problems Name Problem SNOMED Code Status Onset Date Resolution Date Notes Provider Name and Address Organization Details Recorded Time Bacterial vaginosis 008245014 Active Rosana [place] null, [place] - [facility] 6 10:21:58 Vaginitis 15380749 Active [place] [facility] 6 10:21:58 Herpesviru s infection 00438631 Active Rosana [place] [facility] 6 10:21:58 Genital herpes simplex 15027269 Active Rosana [place] [facility] 6 10:21:58 Increased frequency of urination 824516035 Active Rosana [place] [facility] 6 10:21:58 Herpes simplex 08215275 Active Rosana [place] [facility] 6 10:21:58 Vaginal discharge 193019326 Active Rosana workman, [facility] 6 10:21:58 Chlamydial infection 143353741 Active Rosana workman, [facility] 6 10:21:58 Cervicovag inal cytology: Low grade squamous intraepith elial lesion 908420558 Active Rosana workman, [facility] 6 15:06:55 72228347 Completed 201606/14/2024 Martínez Evans MA ji, [facility] 5 16:30:34 Notes:vaginal odor x 1 week no itching. Sexually active 1 partner. Condom use 100%, no STI history. Wants BC Problem Notes None recorded. Procedures Surgical History Date Name Laterality Status Provider Name and Address Organization Details Recorded Time 5 Depo Injection completed Geo Gee MA [facility] 02/12/2015 12:39:13 5 Depo Injection completed Geo Gee MA [facility] 11/21/2014 12:13:30 5 Depo Injection completed Geo Gee MA [facility] 08/20/2014 15:28:20 5 Depo Injection completed Geo Gee MA [facility] 05/28/2014 15:54:31 Imaging Results None recorded. Procedure Notes None [...] Not Available Not Avai lable metronidazol e 0.75 % (37.5 mg/5 gram) vaginal gel INSERT 1 APPLICATORF UL VAGINALLY EVERY DAY AT BEDTIME FOR 5 DAYS active Not Available Not Available N ot Available Pyridium 200 mg tablet Take 1 tablet 3 times a day by oral route for 2 days. 2024 active Not Available Not Available Not Avai lable metronidazol e 500 mg tablet TAKE 1 TABLET BY MOUTH EVERY 12 HOURS FOR 7 DAYS active Not Available Not Available N ot Available acyclovir 400 mg tablet Take 1 [...] Available Not Available cephalexin 500 mg capsule TAKE 1 CAPSULE BY MOUTH EVERY 6 HOURS FOR 7 DAYS active Not Available Not Available No t Available ibuprofen 600 mg tablet active Not [...] Not Available Not Available Not Avai lable levonorgestr el 1.5 mg tablet TAKE 1 TABLET BY MOUTH FOR 1 DAY active Not Available Not Available No t Available PNV-Select 27 mg-1 mg tablet Take 1 tablet every day by oral route for 60 days. 2016 active Not Available Not Available Not Avai lable Vol-Plus 27 mg iron-1 mg tablet active Not Available Not Available Not Available Vitals Date Recorded Body height Body mass index (BMI) Body weight Oxygen saturation Oxygen saturation in Arterial blood by Pulse oximetry Heart rate Respiratory rate Body temperature Systolic blood pressure Diastolic blood pressure Provider Name and Address Organization Details Last Updated DateTime 5 157.48 cm 22.8 kg/m2 91442.8 9 g 98 % 98 % 98 /min 18 /min 98.1 [degF] 110 mm[Hg] 72 mm[Hg] Martínez Evans MA [facility] 5 16:39:15 Date Recorded Body weight Provider Name an d Address Organization Details Last Updated DateTime 07/16/2016 76263.365452 tracey Rosana Woodall [facility] 07/17/19 17 12:57:25 Date Recorded Body height Body mass index (BMI) Systolic blood pressure Diastolic blood pressure Provider Name and Address Organization Details Last Updated DateTime 07/16/2016 157.48 cm 21.4 kg/m2 102 mm[Hg] 60 mm[Hg] Mimi Steele MA [facility] 07/16/2016 12:15:44 Date Recorded Body weight Provider Name an d Address Organization Details Last Updated DateTime 08/07/2016 29715.38366 tracey Rosana Woodall [facility] 7 11:35:37 Date Recorded Body height Body mass index (BMI) Systolic blood pressure Diastolic blood pressure Provider Name and Address Organization Details Last Updated DateTime 08/07/2016 157.48 cm 21.2 kg/m2 96 mm[Hg] 62 mm[Hg] Mimi Steele MA [facility] 08/07/2016 10:59:27 Date Recorded Body weight Body mass index (BMI) Body height Systolic blood pressure Diastolic blood pressure Provider Name and Address Organization Details Last Updated DateTime 11/06/2015 02711.34 544 g 20.5 kg/m2 157.48 cm 100 mm[Hg] 80 mm[Hg] Jesus Arenas [facility] 6 14:58:47 Date Recorded Body height Body weight Body mass index (BMI) Systolic blood pressure Diastolic blood pressure Provider Name and Address Organization Details Last Updated DateTime 02/10/2016 157.48 cm 39579.94 g 20.7 kg/m2 100 mm[Hg] 60 mm[Hg] Geo Gee MA [facility] 6 16:27:24 Social History Question Answer Notes LastModified by Organizat ion Details LastModified Time Tobacco Smoking Status Never Smoker Martínez Evans MA null, [facility] 06/14/2024 16:31:27 Are You Blind Or Do You Have [...] No Information not available 06/14/2024 Do You Use Sunscreen Routinely? No Information not available 06/14/2024 Has Tobacco Cessation Counseling Been Provided? No Information not available 06/14/2024 Sex: Female Functional Status Question Answer Note LastModified by Organizat ion Details LastModified Time Do you use any illicit or recreational drugs? Yes Marijuana Information not available 06/14/2024 Do you or have you ever used any other forms of tobacco or nicotine? No Information not available 06/14/2024 What is your level of alcohol consumption? Occasional Information not available 06/14/2024 Are you able to care for yourself? Yes Information not available 06/14/2024 What is your exercise level? None Information not available 06/14/2024 Mental Status Question Answer Note LastModified by Organization D etails LastModified Time Do you feel stressed (tense, restless, nervous, or anxious, or unable to sleep at night)? [id number] Information not available 06/14/2024 Family History Relationship Description Onset Age of this Age Resolved Age Notes LastModified by Organization Details LastModified Time Mother Diabetes mellitus [email or web address] Not available 2015 10:10:07 Medical History Condition Response Other Y High Blood Pressure N Breast Cancer N Kidney or Bladder Problems N Thyroid Problems N GI Problems N Lung Disease N Depression N Blood Clots N Acne N Eating Disorder N Breast Problem N Anemia N Anesthesia Complications N Headaches/Migraines N Anxiety Disorder N Ovarian Cancer N Diabetes N Muscle, Joint, or Bone Problems N [...] SNOMED-CT Code Diagnosis ICD10 Code Diagnosis Note [id number] Nessa Nava MD [facility] ([facility]) [address] [place] [address] 04/30/2014 12:19:12 04/30/2014 13:01:19 Bacterial vaginosis [id number] Uses contraception [id number] Nessa Nava MD [facility] ([facility]) [address] [place] [address] 05/28/2014 14:46:35 05/28/2014 16:41:43 Uses contraception [id number] Vaginitis [id number] Dieudonne Hunt MD [facility] ([facility]) [address] [place] [address] 06/20/2014 10:50:16 06/20/2014 12:55:20 Herpesvirus infection [id number] Nessa Nava MD [facility] ([facility]) [address] [place] [address] 07/03/2014 15:03:59 07/03/2014 15:44:27 Herpesvirus infection [id number] Nessa Nava MD [facility] ([facility]) [address] [place] [address] 08/20/2014 14:48:53 08/20/2014 15:43:48 Uses contraception [id number] Genital he rpes simplex [id number] Nessa Nava MD [facility] ([facility]) [address] [place] [address] 11/20/2014 10:24:20 11/20/2014 11:04:45 Uses contraception [id number] Nessa Nava MD [facility] ([facility]) [address] [place] [address] 11/21/2014 11:44:47 11/21/2014 12:40:38 Uses contraception [id number] Nessa Nava MD [facility] ([facility]) [address] [place] [address] 02/12/2015 12:02:07 02/12/2015 12:42:27 Uses contraception [id number] Z30.42 Increased frequency of urination [id number] R35.0 Herpes simplex 37867853 B00.9 [id number] Nessa Nava MD [facility] ([facility]) [address] [place] [address] 04/01/2015 10:22:47 04/01/2015 11:34:14 Herpes simplex 44782957 B00.9 Vaginal discharge 258822 006 N89.8 [id number] Nessa Nava MD [facility] ([facility]) [address] [facility] [place] [address] 04/04/2015 14:40:03 04/04/2015 15:19:32 Chlamydial infection [id number] A74.9 [id number] Nessa Nava MD [facility] ([facility]) [address] [facility] [place] [place] [address] 05/07/2015 11:16:42 05/07/2015 12:48:30 High risk sexual behavior [id number] Z72.51 [id number] MD Garett Schmidt [facility] ([facility]) [address] [place] [address] 07/10/2015 11:55:53 07/10/2015 12:45:05 High risk sexual behavior 012898018 Z72.51 [id number] Daniel Whitt PA-C [facility] [address] [place] [address] 07/19/2015 13:45:25 07/19/2015 15:14:52 Vaginal discharge [id number] N89.8 [id number] MD Garett Schmidt [facility] ([facility]) [address] [place] [address] 08/07/2015 11:38:34 08/07/2015 12:20:55 Vaginitis 47713069 N76.0 [id number] Nessa Nava MD [facility] ([facility]) [address] [place] [address] 10/25/2015 09:53:15 10/25/2015 11:29:55 Gynecologic examination [id number] Z01.419 [id number] Nessa Nava MD [facility] ([facility]) [address] [place] [address] 11/06/2015 14:46:57 11/06/2015 16:49:12 Cervicovaginal cytology: Low grade squamous intraepithelial lesion 105697078 R87.546 [id number] [facility] ([facility]) [address] [place] [address] 02/10/2016 16:20:20 02/10/2016 17:39:53 Vaginitis and vulvovaginitis 682471676 N76.0 High risk sexual behavior [id number] Z72.51 [id number] [facility] [address] [place] [address] 07/16/2016 11:54:24 07/16/2016 13:46:37 [id number] Z33.1 test positive 821264404 Z32.01 [id number] Nessa Nava MD [facility] ([facility]) [address] [place] [address] 08/07/2016 10:46:41 08/07/2016 12:13:29 Normal [id number] Z34.91 [id number] RADHA BURT MD [facility] [address] [place] [address] 06/14/2024 16:27:02 06/19/2024 16:45:42 Body mass index 20-24 - normal [id number] Z68.22 Acute urin severino tract infection 578520825 N39.0 Venereal d isease screening 642181485 Z11.3 Health Concerns Section Related Observation LastModified by Organization Detai ls LastModified Time None Recorded Concern Status LastModified by Organization Details LastModified Time None Recorded Advance Directives Directive None Recorded Payers Encounter Date Sequence Insurance Name Policy Number Policy Castellanos Covered Member ID Castellanos Member ID Guarantor Name 11/06/2015 1 [facility] (MEDICAID HMO) Shanti Shurn [id number] Shanti Shurn 02/10/2016 1 [facility] (MEDICAID HMO) Shanti Shurn [id number] Shanti Shurn 07/16/2016 1 [facility] (MEDICAID HMO) Shanti Shurn [id number] Shanti Shurn 08/07/2016 1 [facility] (MEDICAID HMO) Shanti Shurn [id number] Shanti Shurn 06/14/2024 1 *SELF PAY* My timi Shurn Notes Date Note Type Note Provider Name and Address Organization Details Recorded Time 07/16/2016 text/html confirmation Rosana Woodall [place], [place] - [facility] 07/16/2016 13:00:58 06/14/2024 text/html 28 year old laura walker presents to with complaints of urinary frequency, dysuria, vaginal discharge and lower pelvic pressure. She states she noticed these symptoms yesterday. She denies any fever, rash, chest pain, shortness of breath, vaginal odor, sores/lesions. She states she about to start her menstrual cycle and has had some spotting. She denies any back pain. MARIOLA PEREZ NP Attn: Accounting,[address], [place], [address], [place] - [facility] 06/14/2024 17:16:39 OBGyn Episode Ob Episode Information Episode Created Date Number of Fetuses Patient Bloodtype Patient rh Status Prepregnancy Weight lbs Domestic Partner Domestic Partner Phone Father Name Medical Records Coordinator Status 07/17/19 17 1 B Positive CLOSED Fetus Data First Name Last Name Admitted to NICU Weight (g) Sex Living Outcome Pediatric Complications Fetus ID Race Codes Race Delivery Type [id number] Joseph Calculation Initial Joseph Date Initial Exam [...] Type Weight in lbs Pre/Post Dialysis Refused 117.148360272540 BP Diastolic BP Location Tested BP Systolic [...] Type Weight in lbs Pre/Post Dialysis Refused 116.389689175091 BP Diastolic BP Location Tested BP Systolic BP Type 62 96 sitting Fetus Heart Rate Present Fetus Movement Comments NOB here for care. Reviewed labs to be wnl. 1 pound weight loss. Pt. had been taking OTC anti nausea supplement from [facility] which helped with nausea. Preferred u/s scheduling at [facility]. Pt. to RTC in 2 weeks, first trimester screen then. Flowsheet Date 06/14/2024 Polo Score Blood Edema Fundus Height Fundus Units Glucose Ketones Leukocytes Nitrite Labor Signs Protein Cervic Dilation Cervic Effacement Cervic Station Type Weight in lbs Pre/Post Dialysis Refused Weight 124.811643143984 BP Diastolic BP Location Tested BP Systolic [...] At Estimated Date of Delivery false Thalassemia (Martiniquais, Georgian, Mediterranean, Or Background): MCV < 80 false Neural Tube Defect (Meningom yelocele, Spina Bifida, Or Anencephaly) false Congenital Heart Defect false Down Syndrome false Ameya-Sachs (eg, Bahai, Cajun, Bermudian-Marshallese) f alse Christina Disease false Sickle Cell Disease Or Trait () false Hemophilia Or Other Blood Disorders false Muscular Dystrophy false Cystic Fibrosis false Broome's Chorea false Mental Retardation/Autism false If Yes, [...]
--- OUTSIDE RECORDS SUMMARY | 2024-08-26 18:00 | XMS_ITS | Data Portability ---
Author Organization [employer] , [facility]Gerald Address [address] [place] [address] Care Team Providers Care Electronic Device Repairer Name Role Phone [facility] Plate Straightener Assessment Encounter Date Assessment Date Assessment LastModified [...] vaginosis + vaginitis panel, vaginal 2024 025 [facility], [address] [place], [address], 5 12:55:40 bacterial vaginosis + vaginitis panel, vaginal 2024 025 [facility], [address] [place], [address], 5 09:18:06 bacterial vaginosis + vaginitis panel, vaginal 2023 024 [facility], [address] [place], [address], 4 15:12:28 unlisted lab - Pap reflex hold 2023 024 tena [facility] Aldo, [address] [place], [address], 5 15:43:49 pap, LB 2023 024 [facility], [address] [facility], [place], [address], 4 09:49:40 unlisted lab - STD screening ([facility]) 2023 024 [facility] Aldo, [address] [place], [address], 4 12:06:13 bacterial vaginosis + vaginitis panel, vaginal 2023 024 SALLIE [facility] Aldo, [address] [place], [address], 4 14:27:39 bacterial vaginosis + vaginitis panel, vaginal 2022 023 SALLIE [facility] Aldo, [address] [place], [address], 3 12:57:34 unlisted lab - STD screening ([facility]) 2022 023 [facility] Aldo, [address] [place], [address], 3 12:42:05 Referral None recorded. Procedures None recorded. Surgeries None recorded. Imaging None recorded. Medication Orders Plan B One-Step 1.5 mg tablet 2024 025 [id number], [address], [place], [place], [id number], 5 15:46:33 Patient TargetsNo targets recorded. Patient Instructions Encounter Date Encounter Id Patient Instructions Last Modified By Organization Details Last Modified Time 08/27/2022 [id number] exposure to sexually transmitted infections: care instructions bnotzke Not available 08/27/2022 17:17:12 03/01/2024 [id number] body mass index: care instructions bnotzke Not [...] Abnormal Flag Note LastModifiedBy Organization Detail LastModifiedTime 08/28/1908/28/2022 STD SCREE NI ([facility] ) hep BS Ag Non-Re active non-re active normal Not Available [email or web address] [address] [place] [address], [id number], 08/28/2022 12:42:05 08/28/19 23 08/28/2022 STD SCREE NI ([facility] ) hep C Ab Non-Re active non-re active normal Not Available [email or web address] [address] [place] [address], [address], 08/28/2022 12:42:05 08/28/19 23 08/28/2022 STD SCREE NI ([facility] ) HIV 1/2 Ag/Ab Non-Re active non-re active normal Not Available [email or web address] [address] [place], [address], 08/28/2022 12:42:05 08/28/19 23 08/28/2022 STD SCREE NI ([facility] ) syphilis Ab Non-Re active non-re active normal Not Available [email or web address] [address] [place], [address], 08/28/2022 12:42:05 08/28/19 23 08/28/2022 VAGIN ITIS PLUS STD PANEL bacterial vaginosis BV POS negati ve abnormal Not Available [address], [address], 08/28/2022 12:57:34 08/28/19 23 08/28/2022 VAGIN ITIS PLUS STD PANEL emery species C. spp neg negati ve normal Not Available [address], [address], 08/28/2022 12:57:34 08/28/19 23 08/28/2022 VAGIN ITIS PLUS STD PANEL emery glabrata C. gla neg negati ve normal Not Available [address], [address], 08/28/2022 12:57:34 08/28/19 23 08/28/2022 VAGIN ITIS PLUS STD PANEL trichomonas vaginalis CV/TV TRICH neg negati ve normal Not Available [address], [address], 08/28/2022 12:57:34 08/28/19 23 08/28/2022 VAGIN ITIS PLUS STD PANEL chlamydia trachomatis CT neg negati ve normal This repor t is inten ded for us in clini kristyn monit oring and manag ement of patie nts. It is not inten ded for use in medic al-le gal appli catio n. Not Available [address], [address], 08/28/2022 12:57:34 08/28/19 23 08/28/2022 VAGIN ITIS PLUS STD PANEL neisseria gonorrhoeae GC neg negati ve normal This repor t is inten ded for us in clini kristyn monit oring and manag ement of patie nts. It is not inten ded for use in medic al-le gal appli catio n. Not Available [address], [address], 08/28/2022 12:57:34 04/29/19 24 04/30/2023 STD SCREE NI ([facility] ) hep BS Ag Non-Re active non-re active normal Not Available [address], [address], 04/30/2023 12:06:13 04/29/19 24 04/30/2023 STD DEBBIE BAKER ([facility] ) hep C Ab Non-Re active non-re active normal Not Available [address], [address], 04/30/2023 12:06:13 04/29/19 24 04/30/2023 STD DEBBIE BAKER ([facility] ) HIV 1/2 Ag/Ab Non-Re active non-re active normal Not Available [address], [address], 04/30/2023 12:06:13 04/29/19 24 04/30/2023 STD DEBBIE BAKER ([facility] ) syphilis Ab Non-Re active non-re active normal Not Available [address], [address], 04/30/2023 12:06:13 04/29/19 24 04/30/2023 VAGIN ITIS PLUS STD PANEL bacterial vaginosis BV POS negati ve abnormal Not Available [address], [address], 04/30/2023 14:27:39 04/29/19 24 04/30/2023 VAGIN ITIS PLUS STD PANEL emery species C. spp POS negati ve abnormal Not Available [address], [address], 04/30/2023 14:27:39 04/29/19 24 04/30/2023 VAGIN ITIS PLUS STD PANEL emery glabrata C. gla neg negati ve normal Not Available [address], [address], 04/30/2023 14:27:39 04/29/19 24 04/30/2023 VAGIN ITIS PLUS STD PANEL trichomonas vaginalis CV/TV TRICH neg negati ve normal Not Available [address], [place], [address], 04/30/2023 14:27:39 04/29/19 24 04/30/2023 VAGIN ITIS PLUS STD PANEL chlamydia trachomatis CT neg negati ve normal This repor t is inten ded for us in clini kristyn monit oring and manag ement of [facility]. It is not inten ded for use in medic al-le gal appli catio n. Not Available [facility] [address] [place], [address], 04/30/2023 14:27:39 04/29/19 24 04/30/2023 VAGIN ITIS PLUS STD PANEL neisseria gonorrhoeae GC neg negati ve normal This repor t is inten ded for us in clini kristyn monit oring and manag ement of [facility]. It is not inten ded for use in medic al-le gal appli catio n. Not Available [address], [address], 04/30/2023 14:27:39 03/01/20 24 03/03/2024 VAGIN ITIS PLUS STD PANEL bacterial vaginosis BV POS negati ve abnormal Not Available [address], [address], 03/03/2024 15:12:27 03/01/20 24 03/03/2024 VAGIN ITIS PLUS STD PANEL emery species C. spp neg negati ve normal Not Available [facility] [address] [place] [address], [address], 03/03/2024 15:12:27 03/01/20 24 03/03/2024 VAGIN ITIS PLUS STD PANEL emery glabrata C. gla neg negati ve normal Not Available [facility] [address] [place], [address], 03/03/2024 15:12:27 03/01/20 24 03/03/2024 VAGIN ITIS PLUS STD PANEL trichomonas vaginalis CV/TV TRICH neg negati ve normal Not Available [address], [place], [address], 03/03/2024 15:12:27 03/01/20 24 03/03/2024 VAGIN ITIS PLUS STD PANEL chlamydia trachomatis CT neg negati ve normal This repor t is inten ded for us in clini kristyn monit oring and manag ement of patie nts. It is not inten ded for use in medic al-le gal appli catio n. Not Available [facility] [address] [place], [address], 03/03/2024 15:12:27 03/01/20 24 03/03/2024 VAGIN ITIS PLUS STD PANEL neisseria gonorrhoeae GC neg negati ve normal This repor t is inten ded for us in clini kristyn monit oring and manag ement of patie nts. It is not inten ded for use in medic al-le gal appli catio n. Not Available [address], [address], 03/03/2024 15:12:27 03/01/20 24 03/10/2024 THINP REP TIS PAP clinical information: normal None given Not Available [address], [address], 03/10/2024 09:49:40 03/01/20 24 03/10/2024 THINP REP TIS PAP LMP: normal NONE GIVEN Not Available [facility] [address] [place], [address], 03/10/2024 09:49:40 03/01/20 24 03/10/2024 THINP REP TIS PAP prev. Pap: normal NONE GIVEN Not Available ZAL[facility]A [address], [address], 03/10/2024 09:49:40 03/01/20 24 03/10/2024 THINP REP TIS PAP prev. BX: normal NONE GIVEN Not Available [address], [address], 03/10/2024 09:49:40 03/01/20 24 03/10/2024 THINP REP TIS PAP source: normal Cervi x Not Available [address] [address] [place], [address], 03/10/2024 09:49:40 03/01/20 24 03/10/2024 THINP REP TIS PAP statement of adequacy: normal Satis facto ry for evalu ation . Endoc ervic al/tr ansfo rmati on zone compo nent prese nt. Age and/o r menst rual statu s not provi ded Not Available [address] [address] [place], [address], 03/10/2024 09:49:40 03/01/20 24 03/10/2024 THINP REP TIS PAP interpretati on/result: normal Cytol ogy Resul ts: Negat emerald for intra epith elial lesio n or malig jerrod . Not Available [address] [address] [place], [address], 03/10/2024 09:49:40 03/01/20 24 03/10/2024 THINP REP TIS PAP infection: normal Shift in vagin al jaime sugge stive of bacte rial vagin osis. Not Available [address] [address] [place], [address], 03/10/2024 09:49:40 03/01/20 24 03/10/2024 THINP REP TIS PAP comment: normal This Pap test has been evalu ated with compu ter jordon teri techn ology . Not Available [address] [address] [place], [address], 03/10/2024 09:49:40 03/01/20 24 03/10/2024 THINP REP TIS PAP cytotechnolo gist: normal PCM, CT( CP) CT Scree ni Locat ion: [place] [address] [place] [address] Not Available [facility] [address] [place], [address], 03/10/2024 09:49:40 03/01/20 24 03/10/2024 THINP REP [...] clini kristyn infor matio n. Not Available [facility] [address] [address], [place], [address], 03/10/2024 09:49:40 04/17/19 25 04/19/2024 VAGIN ITIS PLUS STD PANEL bacterial vaginosis BV POS negati ve abnormal Not Available [address], [address], 04/20/2024 09:18:06 04/17/19 25 04/19/2024 VAGIN ITIS PLUS STD PANEL emery species C. spp neg negati ve normal Not Available [address], [address], 04/20/2024 09:18:06 04/17/19 25 04/19/2024 VAGIN ITIS PLUS STD PANEL emery glabrata C. gla neg negati ve normal Not Available [facility] [address] [place] [address], [address], 04/20/2024 09:18:06 04/17/19 25 04/19/2024 VAGIN ITIS PLUS STD PANEL trichomonas vaginalis CV/TV TRICH neg negati ve normal Not Available [facility] [address] [place] [address], [address], 04/20/2024 09:18:06 04/17/19 25 04/19/2024 VAGIN ITIS PLUS STD PANEL chlamydia trachomatis CT neg negati ve normal This repor t is inten ded for us in clini kristyn monit oring and manag ement of [facility]. It is not inten ded for use in medic al-le gal appli catio n. Not Available [facility] [address] [place] [address], [address], 04/20/2024 09:18:06 04/17/19 25 04/19/2024 VAGIN ITIS PLUS STD PANEL neisseria gonorrhoeae GC neg negati ve normal This repor t is inten ded for us in clini kristyn monit oring and manag ement of [facility] nts. It is not inten ded for use in medic al-le gal appli catio n. Not Available [facility] [address] [place] [address], [address], 04/20/2024 09:18:06 08/23/19 25 08/23/2024 VAGIN ITIS PLUS STD PANEL bacterial vaginosis BV POS negati ve abnormal Not Available [address], [address], 08/23/2024 12:55:40 08/23/19 25 08/23/2024 VAGIN ITIS PLUS STD PANEL emery species C. spp neg negati ve normal Not Available [address], [address], 08/23/2024 12:55:40 08/23/19 25 08/23/2024 VAGIN ITIS PLUS STD PANEL emery glabrata C. gla neg negati ve normal Not Available [facility] [address] [place], [address], 08/23/2024 12:55:40 08/23/19 25 08/23/2024 VAGIN ITIS PLUS STD PANEL trichomonas vaginalis CV/TV TRICH neg negati ve normal Not Available [facility] [address] [place] [address], [address], 08/23/2024 12:55:40 08/23/19 25 08/23/2024 VAGIN ITIS PLUS STD PANEL chlamydia trachomatis CT neg negati ve normal This repor t is inten ded for us in clini kristyn monit oring and manag ement of patie nts. It is not inten ded for use in medic al-le gal appli catio n. Not Available [facility] [address] [place], [address], 08/23/2024 12:55:40 08/23/19 25 08/23/2024 VAGIN ITIS PLUS STD PANEL neisseria gonorrhoeae GC neg negati ve normal This repor t is inten ded for us in clini kristyn monit oring and manag ement of patie nts. It is not inten ded for use in medic al-le gal appli catio n. Not Available [facility] [address] [place], [address], 08/23/2024 12:55:40 Result Notes None recorded. Problems Name Problem SNOMED Code Status Onset Date Resolution Date Notes Provider Name and Address Organization Details Recorded Time Syphilis test finding 553440277 Completed 201705/13/2020 Encounte r for screenin g for infectio ns with a predomin antly sexual mode of transmis som; Progress : Stable Added By: Madelyn Pillai Add to Current Problems : NO ProblemS tatus: Resolve Not Available [facility] 2 20:31:36 Poor growth affectin g manageme nt 929624916 Completed 201603/21/2017 Small for dates; Location : None Progress : Stable Added By: Leeann Leahy Add to Current Problems : YES ProblemS tatus: Resolve Not Available [facility] 2 20:31:39 Mixed urinary incontin ence 160488657 Completed 202008/31/2020 Mixed incontin ence; Progress : Stable Added By: Keyana Poole Add to Current Problems : NO ProblemS tatus: Resolve Not Available [facility] 2 20:31:39 Gestatio n period, 40 weeks 38144886 Completed 201604/14/2017 40 weeks gestatio n of pregnanc y; Progress : Stable Added By: Kian Akhtar Add to Current Problems : NO ProblemS tatus: Resolve Not Available [facility] 2 20:31:39 Pregnanc y, childbir th and puerperi um finding Completed 201604/14/2017 Encounte r for supervis ion of normal first pregnanc y, second trimeste r; Progress : Stable Added By: Kian Akhtar Add to Current Problems : NO ProblemS tatus: Resolve Not Available [facility] 2 20:31:38 Uterine size for dates discrepa ncy 354062170 Completed 201604/14/2017 Uterine size-vel e discrepa ncy, third trimeste r; Progress : Stable Added By: Madelyn Pillai Add to Current Problems : NO ProblemS tatus: Resolve Not Available [facility] 2 20:31:36 Increase d frequenc y of urinatio n 200903679 Completed 201902/04/2021 Frequenc y of micturit ion; Severity : Moderate Progress : Stable Added By: Taylor Gallego Add to Current Problems : YES ProblemS tatus: Current Removal Reason: resolved Kimberli Ragsdale CNM [address] [place], [address] , [employer] [facility] 1 12:54:34 Acute vaginiti s 36746396 Completed 201904/06/2021 Acute vaginiti s; Severity : Moderate Progress : Stable Added By: Taylor Gallego Add to Current Problems : YES ProblemS tatus: Current Kimberli Ragsdale CNM [address] [place], [address] , [facility] 2 20:42:56 Sampling of vagina for Papanico laou smear Completed 201805/13/2020 Encounte r for gynecolo gical examinat ion (general ) (routine ) without abnormal findings ; Progress : Stable Added By: Chelsi Piper Add to Current Problems : NO ProblemS tatus: Resolve Not Available [facility] 2 20:31:[address] Concept Completed 201905/13/2020 Encounte r for follow-u p examinat ion after complete d treatmen t for conditio ns other than malignan t neoplasm ; Progress : Stable Added By: aMrlena Gonzalez Add to Current Problems : NO ProblemS tatus: Resolve Not Available [facility] 2 20:31:37 Clinical finding Completed 201604/14/2017 state, incident al; Progress : Stable Added By: Neda Tovar Add to Current Problems : NO ProblemS tatus: Resolve Not Available [facility] 2 20:31:38 Pregnanc y with other medical conditio n Completed 201604/14/2017 Incident al pregnanc y; Location : None Severity : Moderate Progress : Stable Added By: Neda Tovar Add to Current Problems : YES ProblemS tatus: Resolve Not Available [facility] 1 07:46:58 Vaginola bial hernia Completed 201905/13/2020 Other specifie d noninfla mmatory disorder s of vagina; Progress : Stable Added By: Marlena Gonzalez Add to Current Problems : NO ProblemS tatus: Resolve Not Available [facility] 2 20:31:38 Post-ter m pregnanc y 51161079 Completed 201604/14/2017 Post dates; Location : None Progress : Stable Added By: Kian Akhtar Add to Current Problems : YES ProblemS tatus: Resolve Post-ter m pregnanc y; Progress : Stable Added By: Kian Akhtar Add to Current Problems : NO ProblemS tatus: Resolve Not Available [facility] 2 20:31:41 Gestatio n period, 12 weeks 32025041 Completed 202002/04/2021 12 weeks gestatio n of pregnanc y; Severity : Moderate Progress : Stable Added By: Aleksandra Olivia Add to Current Problems : YES ProblemS tatus: Current Removal Reason: resolved Kimberli Ragsdale, CHANELLE [address] [facility], [place], [address] , [facility] 1 12:54:01 Normal pregnanc y in multigra analilia 21469937623 4106 Completed 202002/04/2021 Encounte r for supervis ion of other normal pregnanc y, first trimeste r; Severity : Moderate Progress : Stable Added By: Aleksandra Olivia Add to Current Problems : YES ProblemS tatus: Current Removal Reason: resolved Kimberli Ragsdale CNM [address] [place] [address], [address] , [facility] [employer] [facility] 2 10:08:03 Gestatio n period, 8 weeks 19115096 Completed 202002/04/2021 8 weeks gestatio n of pregnanc y; Severity : Moderate Progress : Stable Added By: Aleksandra Olivia Add to Current Problems : YES ProblemS tatus: Current Removal Reason: resolved Kimberli Ragsdale CNM [address] [place] [address], [phone] , [facility] [employer] [facility] 1 12:54:11 Pregnanc y 51125736 Completed 202004/06/2021 Kimberli Ragsdale CNM [address] [place] [address], [phone] , [facility] [employer] [facility] 2 20:43:02 Nausea and vomiting 01432934 Completed 2020 improved w/isolat ed episodes of N/V Kimberli Ragsdale CNM [address] [place] [address], [phone] , [facility] [employer] IV 2 20:50:59 growth restrict ion 53159031 Completed EFW @ 32 wks 1560gm. 10.9%; AC 2.4% Kimberli Ragsdale CNM [address] [place] [address], [phone] , [facility] [employer] [facility] 2 20:50:59 Normal pregnanc y in multigra analilia 26141188183 4106 Completed 202006/05/2021 Encounte r for supervis [...] Problems : YES ProblemS tatus: Current Kimberli Ragsdale, [facility] [address] [place], [address] , [facility] 2 10:08:03 anatomy study Completed 201604/14/2017 [...] 2 20:31:38 Gestatio n period, 15 weeks 1919408 Completed 202006/05/2021 15 weeks gestatio n of pregnanc y; Progress : Stable Added By: Kimberli Ragsdale Add to Current Problems : YES ProblemS tatus: Current Kimberli Ragsdale, [facility] [address] [place], [address] , [facility] 2 10:08:00 Screenin g for malignan t neoplasm of cervix Completed 201805/13/2020 Encounte r for screenin g for malignan t neoplasm of cervix; Progress : Stable Added By: Chelsi Ppier Add to Current Problems : NO ProblemS tatus: Resolve Not Available [facility] 2 20:31:40 Normal pregnanc y 79628086 Completed 201604/14/2017 Medical visit for normal pregnanc y; Location : None Progress : Stable Added By: Kian Akhtar Add to Current Problems : YES ProblemS tatus: Resolve Not Available [facility] 2 20:31:40 Venereal disease screenin g Completed 201712/10/2017 Screenin g for STDs; Progress : Stable Added By: Neda Tovar Add to Current Problems : NO ProblemS tatus: Resolve Not Available [facility] 2 20:31:40 Antenata l screenin g Completed [...] Start Date : 08/28/19 17 Not Available [facility] 2 20:31:41 Patient encounte r status 455057333 Active 2021 Nay workman, [employer] [facility] 2 14:02:48 Threat ed miscarri age 86780089 Completed 201604/14/2017 Threat ed ; Location : None Progress : Stable Added By: Neda Tovar Add to Current Problems : YES ProblemS tatus: Resolve Not Available [facility] 2 20:31:40 Problem Notes None recorded. Procedures Surgical History Date Name Laterality Status Provider Name and Address Organization Details Recorded Time 03/01/2024 Date of Last Pap Smear completed Radha Castelan [employer] [facility] [employer] [facility] 08/22/2024 15:47:24 05/29/2021 NST completed Kimberli Ragsdale CNM [address] [place], [address], [facility] [facility] 05/27/2021 21:07:14 05/15/2021 NST cancelled Kimberli Ragsdale CNM [address] [place], [address], [employer] [facility] 05/12/2021 11:18:59 05/09/2021 NST completed Kimberli Ragsdale, CHANELLE [address] [facility], [place], [address], [facility] [employer] [facility] 05/12/2021 11:21:33 03/27/2021 NST completed Kimberli Ragsdale CNM [address] [facility], [place], [address], [facility] [employer] [facility] 03/27/2021 14:01:53 Imaging Results None recorded. Procedure Notes None recorded. Medical Equipment None Reported. Allergies Allergen ID Allergen Name Allergen Category Reaction Reaction Severity Criticality Documentation Date Start Date Code Code System Note Provider Name and Address Organization Details Recorded Time 164821 No known allergy (situatio n) Not available Not available Not available Not available 07/31/2021 13484 6003 SNOMED Nay Granado [facility], [facility] [employer] 14:02:48 Medications Name Sig Start Date Stop Date [...] DOSES AFTER COMPLETI ON OF ANTIBIOT ICS 08/22 completed Not Available Not Available Not Available fluconazo le 200 mg tablet TAKE 1 TABLET BY MOUTH DAILY 03/01 completed Not Available Not Available Not Available metronida zole 0.75 % (37.5 mg/5 gram) vaginal gel Insert 1 applicat orful every day by vaginal route at bedtime for 5 days. 2024 active Not Available Not Available Not Avai lable prednison e 20 mg tablet TAKE 2 TABLETS BY MOUTH DAILY FOR 5 DAYS 04/29 completed Not Available Not Available Not Available metronida zole 500 mg tablet Take 1 tablet every 12 hours by oral route for 7 days. 08/22 completed Not Available Not Available Not Available ondansetr on 8 mg disintegr ating tablet place 1 tablet (8 mg) on top of the tongue where it will dissolve q 4-6 h PRN for nausea 12/06 completed ondanset laureano 8 mg oral Tablet,d donn wiggins RxNorm: 975624 Allow Substitu tion: True Refill Denied: No Edited by: Aleksandra Sumner ) on 12/07/19 Stopped by: Aleksandra Sumner ) on 12/07/19 21 Not Available Not Available Not Available Vitamin tablet Take 1 tablet by mouth daily. 10/11 completed Multivit barr Tablet Allow Substitu tion: True Refill Denied: No Not Available Not Available Not Available benzonata te 100 mg capsule TAKE 1 CAPSULE BY MOUTH TWICE DAILY NEEDED FOR COUGH 03/01 completed Not Available Not Available Not Available cephalexi n 500 mg capsule TAKE 1 CAPSULE BY MOUTH EVERY 6 HOURS FOR 7 DAYS 08/22 completed Not Available Not Available Not Available [...] monohyd/ m-cryst 100 mg oral capsule RxNorm: 0950789 Allow Substitu tion: True Refill Denied: No Edited by: Aleksandra Sumner ) on 05/22/19 Stopped by: Aleksandra Sumner ) on 05/22/19 Not Available Not Available Not Available metronida zole 12/06 completed metroNID AZOLE RxNorm: 110558 Allow Substitu tion: False Refill Denied: No [...] 1 TABLET BY MOUTH FOR 1 DAY 08/22 completed Not Available Not Available Not Available 28 mg iron-800 mcg tablet Take 1 tablet every day by oral route with meals. 10/28 completed Not Available Not Available Not Available Vitals Date Recorded Body height Body mass index (BMI) Body weight Systolic blood pressure Diastolic blood pressure Provider Name and Address Organization Details Last Updated DateTime 04/17/2024 157.48 cm 22.6 kg/m2 91206.3 g 100 mm[Hg] 60 mm[Hg] Wally Lou [place] [employer] [facility] 5 16:12:51 Date Recorded Body height Body mass index (BMI) Body weight Body temperature Systolic blood pressure Diastolic blood pressure Provider Name and Address Organization Details Last Updated DateTime 4 157.48 cm 21.6 kg/m2 92361.6 2 g 97.3 [degF] 100 mm[Hg] 62 mm[Hg] Jessica Fishman [place] [employer] [facility] 4 12:01:30 Date Recorded Body height Body mass index (BMI) Body weight Systolic blood pressure Diastolic blood pressure Provider Name and Address Organization Details Last Updated DateTime 08/22/2024 157.48 cm 21.8 kg/m2 25154.49 g 110 mm[Hg] 72 mm[Hg] Radhajackie CoonCastelan [place] [employer] [employer] IV 5 15:46:03 Date Recorded Body height Body mass index (BMI) Body weight Body temperature Systolic blood pressure Diastolic blood pressure Provider Name and Address Organization Details Last Updated DateTime 3 157.48 cm 24.6 kg/m2 91356.8 1 g 97.9 [degF] 94 mm[Hg] 60 mm[Hg] Madelin Luna [place] [employer] IV 3 17:10:23 Date Recorded Body height Body mass index (BMI) Body weight Body temperature Systolic blood pressure Diastolic blood pressure Provider Name and Address Organization Details Last Updated DateTime 4 157.48 cm 22.2 kg/m2 57720.1 1 g 96.9 [degF] 104 mm[Hg] 68 mm[Hg] Kaela Aguirre [facility] [employer] IV 4 16:06:11 Social History Question Answer Notes LastModified by Organ[employer] Details LastModified Time Tobacco Smoking Status Never Smoker Nay Granado ji, [facility] [employer] 02/04/2021 12:49:54 If You Are , What Was Your Level Of Alcohol Consumption Prior To ? None Information not available 04/17/2024 Are You Blind Or Do You Have Difficulty Seeing? No Information not available 04/03/2021 Are You Deaf Or Do You Have Serious Difficulty Hearing? No Information not available 04/03/2021 What Type Of Diet Are You Following? REGULAR Information not available 02/04/2021 How Many Children Do You Have? 2 [email or web address] Information not available 01/07/2022 What Is Your Relationship Status? Single Information not available 02/04/2021 Are You Sexually Active? Yes brock Information not available 05/20/2022 Sex: Female Functional Status Question Answer Note LastModified by [employer] Details LastModified Time Do you use any illicit or recreational drugs? No Information not available 06/05/2021 Do you or have you ever used any other forms of tobacco or nicotine? No Information not available 08/14/2021 What is your level of alcohol consumption? None Information not available 02/04/2021 Are you currently employed? Yes Information not available 04/17/2024 Do you or have you ever used e-cigarettes or vape? Never used electronic cigarettes Information not available 02/04/2021 What is your exercise level? Occasional Information not available 02/04/2021 Mental Status None recorded. Family History Relationship Description Onset Age of this Age Resolved Age Notes LastModified by Organization Details LastModified Time Father No current problems or disability [email or web address] Not available 08/14 14:54:00 Mother No current problems or disability [email or web address] Not available 08/14 14:54:00 Medical History Condition Response High Blood Pressure N Cytomegalovirus N Hyperthyroidism N MRSA N Blood Transfusion N Depression N Incontinence N Anxiety Disorder N Autoimmune disease N Arthritis N Polycystic Ovarian Syndrome N Hematuria N Varicosities N Stroke N Crohn's Disease N Seasonal allergies N Alzheimer's/Dementia N COPD/Emphysema N History of Abnormal Pap N Fibromyalgia N Kidney Infection N Kidney Disease N Gallbladder disease N Von Willebrand disease N Eating Disorder N Diabetes Mellitus (non-insulin dependent ) N Ovarian Problems N Frequent Urinary Tract infections N Osteopenia N GERD (reflux) N Diabetes (insulin dependent) N Asthma N Heart Attack N Endometrial Cancer N Hepatitis N Pulmonary Embolism N RPR N Chicken Pox N Other Cancer N Colon Cancer N Breast Cancer N Herpes (HSV) N Lung Cancer N Hypothyroidism N Panic Attacks N Neurological Disorder N Deep Vein Thrombosis N Tuberculosis/Positive PPD N Shingles N Cervical Cancer N Chlamydia N HPV/Genital Warts N Endometriosis N IBS (Irritable Bowel Syndrome) N High Cholesterol N Liver Disease N Ulcer N HIV N Sickle Cell Disease/Trait N ADD/ADHD N Anemia N Multiple Sclerosis N Gonorrhea N Headaches/migraines N Ovarian Cancer N Seizures/Epilepsy N Fibroids N Lupus N Rubella N Blood Clotting Disorder N Bipolar Disorder N Diabetes Mellitus (during ) N Ulcerative Colitis N Heart Disease N Osteoporosis N Gynecological History Statement/Question Response Flow Moderate Date of last HPV Date of LMP 08/14/2024 HPV Vaccine N Duration of Flow (days) 4 Most Recent Mammogram Current Control Method None Age at Menarche 15 Date of Last Colonoscopy Most Recent Bone Density Frequency of Cycle (Q days) 15,20,28 Date of Last Pap Smear 03/01/2024 Obstetrics History GPAL:G 3 P 2 0 1 2 Type Value Full Term 2 Induced 1 Living 2 Total 3 Past Encounters Encounter ID Performer Location Encounter Start Date Encounter Closed Date Diagnosis/Indication Diagnosis SNOMED-CT Code Diagnosis ICD10 Code Diagnosis Note [id number] Kimberli Ragsdale CNM [facility] [address] [place] [address] 02/04/2021 11:24:25 02/04/2021 14:10:17 Normal in multigravida 3370225946 60956 Z34.82 Gestation period, 21 weeks 02512819 Z3A.21 screening for malformation 721713933 Z36.3 Anatomy US complete; [id number] [facility] [address] [place] [address] 03/06/2021 15:01:11 03/06/2021 22:46:59 Normal in multigravida 1495655350 54671 Z34.82 Gestation period, 26 weeks 57014117 Z3A.26 [id number] [facility] [address] [place] [address] 03/27/2021 11:14:40 03/27/2021 20:49:18 Uterine size for dates discrepancy 278567988 O26.849 growth Routine an tenatal care 772357065 Z34.03 Z34.83 O09.513 O09.523 Depression screening 171 739330 Z13.32 grow th restriction 89674114 O36.5931 NST [id number] [facility] [address] [place] [address] 04/03/2021 14:13:29 04/05/2021 19:17:57 Supervision of high risk for multigravida done 0010566112 9109 O09.93 Gestation period, 29 weeks 34016708 Z3A.29 grow th restriction 17872793 O36.5931 Anemia of 2734 2003 O99.299 [id number] Kimberli Ragsdale CNM [facility] [address] [place] [address] 04/10/2021 15:35:54 04/14/2021 12:43:57 Supervision of high risk for multigravida done 0967494393 9109 O09.93 Gestation period, 30 weeks 43022385 Z3A.30 grow th restriction 40620275 O36.5931 BPP 8/8; SD 3.05 [id number] Kimber[facility] [address] [place] [address] 04/17/2021 14:58:22 04/17/2021 21:30:02 Supervision of high risk for multigravida done 1195629522 9109 O09.93 Gestation period, 31 weeks 37678111 Z3A.31 grow th restriction 11160238 O36.5931 [id number] Kimberli Ragsdale CNM [facility] [address] [place] [address] 05/02/2021 15:50:37 05/14/2021 14:54:10 Supervision of high risk for multigravida done 8579610958 9109 O09.93 Gestation period, 34 weeks 75151540 Z3A.34 labor precaution s given. FM counts discussed. F/u in L&D if experienci ng decreased movement, leaking fluid, 4 or more contractio ns in 1 hour not relieved by rest and fluids, or regular uterine contractio ns increasing in frequency and/or intensity. grow th restriction 57821565 O36.5931 EFW on 04/17: 1560gm 31.4 wksBPD: 32.3 %HC 14.2 %AC 2.4 %FL 39.0 %EFW 10.9 % [id number] Kimberli Ragsdale CNM [address] [address] 05/09/2021 15:16:08 05/09/2021 19:21:49 Supervision of high risk for multigravida done 9732442832 9109 O09.93 Gestation period, 35 weeks 60022240 Z3A.35 grow th restriction 11357280 O36.5931 EFW on 04/17: 1560gm 31.4 wksBPD: 32.3 %HC 14.2 %AC 2.4 %FL 39.0 %EFW 10.9 % [id number] Kimberli Ragsdale CNM [address] [address] 05/29/2021 15:03:25 06/02/2021 06:41:04 Supervision of high risk for multigravida done 6138142072 9109 O09.93 Gestation period, 37 weeks 89393494 Z3A.37 grow th restriction 51038145 O36.5931 EFW in normal range today. AC WNL. Reviewed measuremen ts w/Dr Gonzales & Dr Alvarenga. HC within range - no microcepha ly on [employer] calc. Per Dr Gonzales ok to stop testing but will induce next week. [id number] Kimberli Ragsdale CNM [facility] h [address] [place] [address] 06/05/2021 10:05:05 06/05/2021 11:00:51 Normal in multigravida 3920156724 46282 Z34.82 Gestation period, 38 weeks 75415883 Z3A.38 screening 2437 00947 Z36.85 [id number] Kimberli Ragsdale CNM [facility] [address] [place] [address] 08/14/2021 14:52:36 08/14/2021 16:02:34 state 14240778 Z39.2 COUNSELING was provided today regarding the following topics:- healthy eating habits. -- education given on weight management .- regular exercise - may resume pre-pregna ncy frequency and intensity as tolerated- Sexual activity - may resume intercours e & use backup contracept ion as needed.- Dietary supplement s: continue vitamins- Fire Extinguisher Technician screening: maintain recommende d screening guidelines including [...] t as needed Venereal d isease screening 713443964 Z11.3 [id number] Kimberli Ragsdale CNM [facility] [address] [place] [address] 10/28/2021 11:36:26 10/28/2021 13:23:42 Vaginal discharge 916549910 N89.8 - Avoid all over the counter [...] boric acid capsules to control odor Dysuria 97200061 R30.9 Reports suprapubic pain when she is not able to empty bladder. Pain subsides after urination. Likely bladder spasms. F/u if experienci ng pain after urination, frequency or hematuria. [id number] Lesley Luna CNM [address] [address] 01/07/2022 12:20:34 01/07/2022 16:35:15 Vaginal discharge 748462947 N89.8 N76.0 await cultures for treatment. [id number] GIANNA Grullon[address] [address] 04/09/2022 14:45:37 04/09/2022 15:16:12 Vaginal discharge 766492153 N89.8 N76.0 - Avoid all over the [...] to control odor Venereal d isease screening 934677693 Z11.3 [id number] GIANNA Gr[address]on[address] [place] [address] 05/20/2022 12:40:43 05/20/2022 13:53:32 Vaginal discharge 238545583 N89.8 N76.0 - Avoid all over the [...] OTC boric acid capsules to control odor [id number] TORY MCKEON [facility] [address] [place] [address] 08/27/2022 16:47:39 08/28/2022 10:16:59 Venereal disease screening 492201155 Z11.3 [id number] TORY MCKEON [facility] [address] [place] [address] 04/29/2023 11:43:29 04/29/2023 17:39:15 Acute vaginitis 11008418 N76.0 Pt comes in today for Infection/ STI testing. Discussed the various types of Infections and STIs, related symptoms and the potential consequenc es (including effects on fertility) of STI. Reviewed ways to limit exposure and prevention techniques . Vulvar care guidelines and safe sex practices reviewed. [place] pending results. Venereal d isease screening 877543967 Z11.3 [id number] TORY MCKEON [facility] [address] [place] [address] 03/01/2024 15:55:13 03/01/2024 16:47:00 Gynecologic examination 27953905 Z01.419 Patient is an establishe d patient who presents for a gynecologi kristyn Annual Exam. The patient denies any changes in her medical history. The patient denies any changes in her family medical history. Annual Exam:She reports having no significan t WAD IMPREGNATOR symptoms.H er menses are regular, occurring every [...] Yes Screening for malignant neoplasm of cervix 699223465 Z12.4 Depression screening 171 159108 Z13.31 See Intake Screening - PHQ Contracept ion education 683277837 Z30.09 Contracept emerald counseling : Discussed options including OCPs, NuvaRing, Nexplanon, hormonal and copper IUDs. Discussed risks, efficacy, noncontrac eptive benefits, and side effects of each option, including risk of VTE with hormonal contracept ion and uterine perforatio n, expulsion, infection with IUD. Acute vaginitis 07106477 N76.0 Pt comes in today for Infection/ STI testing. Discussed the various types of Infections and STIs, related symptoms and the potential consequenc es (including effects on fertility) of STI. Reviewed ways to limit exposure and prevention techniques . Vulvar care guidelines and safe sex practices reviewed. [place] pending results. [id number] Kimberli Ragsdale CNM [facility] [address] [place] [address] 04/17/2024 15:57:21 04/17/2024 16:30:25 Contraception care 227431854 Z30.012 unprotecte d intercours e last night. Vaginal discharge 202182 006 N89.8 Reports small amounts of vaginal discharge and mild odor.Boric acid capsules to control odor.Tx pending lab results [id number] YEE DYER [facility] [address] [place] [address] 08/22/2024 15:35:37 08/22/2024 17:37:17 Vaginal discharge 321816006 N89.8 Pt educated on exam findings, and discussed POC. Vaginal cx collected and sent. Discussed use of boric acid suppositor ies to help alleviate symptoms. Pt advised to avoid fragrant soaps/laun dry detergents , use of baking soda soaks, having partner change soaps, etc. Further POC pending lab result review. Health Concerns Section Related Observation LastModified by Organization Detai ls LastModified Time None Recorded Concern Status LastModified by Organization Details LastModified Time None Recorded Advance Directives Directive None Recorded Payers Insurance Date Sequence Insurance Name Policy Number Policy Castellanos Covered Member ID Castellanos Member ID Guarantor Name 08/20/2024 1 [facility] - DOS ON OR AFTER 20 (MEDICAID REPLACEMENT - HMO) Shanti Roger [id number] Shanti Alfonso Kana Notes Date Note Type Note Provider Name and Address Organization Details Recorded Time 08/27/2022 text/html Shanti is here for possible bv, has an odor and has discharge. off white, thick.last PAP was 06/2019. Denies wanting PAP today- will RTC.wants to get bloodwork for stds ZACK BOOTH [facility] [place], [address], [facility] [employer] 08/27/2022 22:58:40 04/29/2023 text/html Shanti presents today for strong vaginal odor and std testing. She also states she has some swelling and feel like there is a rip in vaginal area. ZACK BOOTH [address] [place], [address], [facility] [employer] 04/29/2023 12:24:18 03/01/2024 text/html Annual GYNReport [...] Pt PHQ9 score is ZACK BOOTH [address] [facility], [place], [address], [facility] [employer] [employer] 03/01/2024 16:20:56 04/17/2024 text/html Shanti is here for family planningpatient states she had unprotected sex last night and would plan bpatient is sexual activepatient states is not currently on any control Kimberli Ragsdale, CHANELLE [address] [facility], [place], [address], [facility] [employer] 04/17/2024 16:30:07 08/22/2024 text/html Vaginal/Vulvar ProblemReported bypatient.Location:dc johnny Onset/Timing:gradual Duration:present for 1-2 weeks Quality:irritation Context:sexually active Alleviating Factors:none Aggravating Factors:none Shanti c/o vaginal discharge and odor. She noticed the symptoms about 2 weeks ago. KEV LOMAX, YEE [address] [place], [address], [facility] [employer] [employer] 08/22/2024 15:57:03 OBGyn Episode Ob Episode Information Episode Created Date Number of Fetuses Patient Bloodtype Patient rh Status Prepregnancy Weight lbs Domestic Partner Domestic Partner Phone Father Name Trimmer Operator Status 02/04/20 21 1 117 CLOSED Fetus Data First Name Last Name Admitted to NICU Weight (g) Sex Living Outcome Pediatric Complications Fetus ID Race Codes Race Delivery Type Kensle y false 3005.04 7 F Full Term none [id number] Problems Problem Notes PNL: B+/RI/NRx3 Screen negat emerald for open NTD, DS and Trisomy 18. Problem Name Start Date End Date Resolution Snomed Code Not e growth restriction 65212023 EFW @ 32 wks 1560gm. 10.9%; AC 2.4% Nausea and vomiting 01/20/2021 MEDICATION 78615921 improved w/isolated episodes of N/V Joseph Calculation [...] Date Ultra Sound Latest Days Gestation 0 [email or web address] 02/03/2021 06/16/19 22 0 Pre-shanita Flowsheet Flowsheet Date 02/04/2021 Polo Score Blood Edema Fundus Height Fundus Units Glucose Ketones Leukocytes Nitrite Labor Signs Protein Cervic Dilation Cervic Effacement Cervic Station none none none neg Type Weight in lbs Pre/Post Dialysis Refused With clothes 131.838052755435 BP Diastolic BP Location Tested BP Systolic [...] in lbs Pre/Post Dialysis Refused With clothes 137.589116955470 BP Diastolic BP Location Tested BP Systolic [...] in lbs Pre/Post Dialysis Refused With clothes 147.832965387276 BP Diastolic BP Location Tested BP Systolic [...] in lbs Pre/Post Dialysis Refused With clothes 146.714100079881 BP Diastolic BP Location Tested BP Systolic BP Type 60 L arm 106 sitting Fetus Heart Rate Present A 145 Fetus Movement A Yes Comments BPP 8/8; S/D ratio normal. W ill get NST at [facility] Wednesday or Wednesday d/t pt's transportation issues. Cont BPPs on . Re-evaluate EFW 3-4 wks. Flowsheet Date 04/10/2021 Polo Score Blood Edema Fundus Height Fundus Units Glucose Ketones Leukocytes Nitrite Labor Signs Protein Cervic Dilation Cervic Effacement Cervic Station none Type Weight in lbs Pre/Post Dialysis Refused Stated 146.186203266061 BP Diastolic BP Location Tested BP Systolic BP Type 60 R arm 98 sitting Fetus Heart Rate Present A 145 Fetus Movement Comments BPP 8/8; D/S 3.05. [facility] Flowsheet Date 04/17/2021 Polo Score Blood Edema Fundus Height Fundus Units Glucose Ketones Leukocytes Nitrite Labor Signs Protein Cervic Dilation Cervic Effacement Cervic Station Type Weight in lbs Pre/Post Dialysis Refused BP Diastolic BP Location Tested BP Systolic BP Type Fetus Heart Rate Present Fetus Movement Comments Patient not seen after ultas ound checked out by front load trash truck driver w/o confirming w/provider.BPP 8/8; S/D 2.73 Flowsheet Date 05/02/2021 Polo Score Blood Edema Fundus Height Fundus Units Glucose Ketones Leukocytes Nitrite Labor Signs Protein Cervic Dilation Cervic Effacement Cervic Station none none neg Type Weight in lbs Pre/Post Dialysis Refused Weight 151.122093985338 BP Diastolic BP Location Tested BP Systolic BP Type 70 100 Fetus Heart Rate Present A 147 Fetus Movement A Yes Comments BPP 8/8 Flowsheet Date 05/09/2021 Polo Score Blood Edema Fundus Height Fundus Units Glucose Ketones Leukocytes Nitrite Labor Signs Protein Cervic Dilation Cervic Effacement Cervic Station none none none neg Type Weight in lbs Pre/Post Dialysis Refused Weight 150.260150605859 BP Diastolic BP Location Tested BP Systolic [...] Weight in lbs Pre/Post Dialysis Refused Stated 154.808580010700 BP Diastolic BP Location Tested BP Systolic [...] in lbs Pre/Post Dialysis Refused With clothes 156.539815599108 BP Diastolic BP Location Tested BP Systolic [...] Disease false Other Infection History false Thalassemia (Divehi, Bulgarian, Mediterranean, Or Background): MCV < 80 false [...] false History of Hepatitis false Ameya-Sachs (eg, Baptist, Cajun, Turkish-Tor[place]) f alse History Of STD, Gonorrhea, Chlamydia, HPV, Syphi lis false Prior GBS-infected child false History of HIV false Personal or Family History o f Neural Tube Defect (Meningomyelocele, Spina Bifida, Or Anencephaly) false Hemophilia Or Other Blood Disorders false Mental Retardation/Autism false Snyder's Chorea false If Yes, Was Person Tested [...] 2 Induce d Regional-Ep idural 39.1 false Jn, Kimberli CNM None Discharge Information Feeding Method Contraceptive Method Maternal HG B and HCT Levels Breast Ob Episode Information Episode Created Date Number of Fetuses Patient Bloodtype Patient rh Status Prepregnancy Weight lbs Domestic Partner Domestic Partner Phone Father Name Trimmer Operator Status 02/05/20 21 1 CLOSED Fetus Data First Name Last Name Admitted to NICU Weight (g) Sex Living Outcome Pediatric Complications Fetus ID Race Codes Race Delivery Type 2806.37 [id number] F Full Term [id number] Joseph Calculation Initial Joseph Date Initial Exam [...] Complications Tubal Sterilization Discharge Date Comments 7 karolyn Luna Discharge Information Feeding Method Contraceptive Method Maternal HG B and HCT Levels
[2024-08-26 18:01] VITALS: BP 119/75; PULSE 83; RESP 18; TEMP 36.4; O2SAT 100
[2024-08-26 18:21] LABS: Basophils Percent Auto 0.6 % (0.2-1.2); Eosinophils Absolute Auto 0.2 K/mm3 (0-0.3); Eosinophils Percent Auto 2.7 % (0-4.4); Hematocrit 37.5 % (37.0-47.0); Hemoglobin 11.9 g/dL (12.0-15.0); Immature Granulocyte Absolute 0.02 K/mm3 (0.00-0.031); Immature Granulocyte Percent A 0.3 % (0-0.5); Lymphocytes Absolute Auto 1.99 K/mm3 (0.9-3.2); Lymphocytes Percent Auto 30.3 % (18.3-44.2); Mean Corpuscular HGB Conc 31.7 g/dl (32-36); Mean Corpuscular Hemoglobin 29.5 pg (26-34); Mean Corpuscular Volume 92.8 fl (80-100); Mean Platelet Volume 11.3 fl (7.4-10.4); Monocytes Absolute Auto 0.3 K/mm3 (0.1-0.6); Monocytes Percent Auto 5.2 % (2.6-8.5); Neutrophils Percent Auto 60.9 % (45.5-73.1); Platelet Count Result 176 k/mm3 (150-375); Red Blood Count 4.04 M/mm3 (4.2-5.4); Red Cell Distribution Width 13.4 % (11.5-14.5); White Blood Count 6.6 K/mm3 (4.5-10.0)
[2024-08-26 18:30] LABS: Alanine Aminotransferase 16 U/L (6-35); Albumin Level 4.5 g/dL (3.5-5.1); Alkaline Phosphatase 51 U/L (38-126); Anion Gap 7 mmol/L (4-12); Aspartate Amino Transferase 26 U/L (14-36); Bilirubin,Total 0.3 mg/dL (0.2-1.3); Blood Urea Nitrogen 6 mg/dL (7-17); Calcium 9.3 mg/dL (8.4-10.2); Carbon Dioxide 27 mmol/L (22-30); Chloride 104 mmol/L (98-107); Estimated CRCL calculation 82 ml/min; Estimated Glomerular Filt Rate > 60; Glucose 103 mg/dL (65-110); Potassium 3.6 mmol/L (3.4-5.0); Sodium 138 mmol/L (137-145); Total Protein 7.6 g/dL (6.3-8.2)
[2024-08-26 18:31] LABS: INR 1.1; Partial Thromboplastin Time 25.5 Seconds (22.3-36.8)
[2024-08-26 18:46] LABS: Beta HCG Quantitative < 2.39 mIU/ML
--- NOTE | 2024-08-26 18:46 | ED.FEMALEGU ---
HPI - Female Genitourinary General Chief complaint: Vaginal Bleeding Stated complaint: suspected miscarriage Time Seen by Provider: 08/26/24 18:45 History of Present Illness HPI Narrative: 29-year-old female presents to the emergency department for abnormal uterine bleeding since this morning. Patient states her last menstrual cycle was 08/15/2024 and lasted approximately 3-5 days which is normal for her. She states she woke up this morning with some suprapubic abdominal cramping and vaginal bleeding. She does endorse a history of abnormal uterine bleeding when she was on control several years ago but has not had any in several years. She denies history of no PCOS or coagulopathy. She states she is having a change her pad every couple of hours. She denies fever, dysuria or hematuria. Of note patient had a checkup with her OBGYN 4 days ago and reportedly had a full STD panel performed which was negative, however she did test positive for BV and was started on metronidazole gel which she has been using up until she started having bleeding today. She states she has not had any unprotected sexual intercourse and she was recently tested for STDs. Related Data Allergies Allergy/AdvReac Type Severity Reaction Status Date / Time No Known Drug Allergies Allergy Unknown Unknown Verified 01/24/24 08:52 Review of Systems Review of Systems: All systems reviewed & are unremarkable except as noted in HPI and below PMFSH Past Medical History Medical History Healthy adult Surgical History Surgical History No history of previous surgery Social History Social History Smoking status: Never smoker Gender identity (if verbalized by the patient): Female Exam Narrative: GENERAL: Well-appearing, well-nourished, and in no acute distress. HEAD: Normocephalic, atraumatic. EYES: EOMI. ENT: Nares clear, no rhinorrhea or epistaxis. Mucous membranes moist. NECK: Supple. CHEST: Clear to auscultation. No respiratory distress. HEART: Regular rate and rhythm. No murmur heard. Normal peripheral pulses. ABDOMEN: Soft, nontender, nondistended, normal active bowel sounds. No rebound, guarding or rigidity. No CVA tenderness EXTREMITIES: Normal range of motion. No edema. SKIN: Warm, dry, no rash. NEURO: No focal deficits. Alert and oriented x3 Course Vital Signs Vital signs: Vital Signs Temperature 97.6 F 08/26/24 18:01 Pulse Rate 83 08/26/24 18:01 Respiratory Rate 18 08/26/24 18:01 Blood Pressure 119/75 08/26/24 18:01 Pulse Oximetry 100 08/26/24 18:01 Oxygen Delivery Room Air 08/26/24 18:01 Temperature 97.6 F 08/26/24 18:01 Pulse Rate 83 08/26/24 18:01 Respiratory Rate 18 08/26/24 18:01 Blood Pressure 119/75 08/26/24 18:01 Pulse Oximetry 100 08/26/24 18:01 Oxygen Delivery Room Air 08/26/24 18:01 MDM - Female Genitourinary MDM Narrative Medical decision making narrative: 29-year-old female presents to the emergency department for abnormal uterine bleeding. LMP 08/15/2024. Began having vaginal bleeding this morning with suprapubic cramping. Triage vitals are stable. Patient is afebrile nontoxic appearing resting comfortably in exam bed. Abdomen is soft and nontender. CBC without leukocytosis, hemoglobin is 11.9, no prior for comparison. Platelets are normal. Chemistries within normal limits. negative. UA does show greater than 100 RBCs, 2+ leuk esterase and 11-20 wbc's. Patient denies urinary symptoms, will hold treatment until urine culture results. Patient was reportedly tested for STDs by her OBGYN 4 days ago which were negative. She has not had unprotected sexual intercourse since. She is currently undergoing treatment for BV with metronidazole gel. Patient updated on results. Uncertain source of abnormal uterine bleeding. Discussed differential including PALM COEIN and need for follow-up with OBGYN. Discussed possibility of BV vaginitis as source given she is currently undergoing treatment. I did offer to switch from metronidazole gel to p.o. metronidazole, however patient declined states she does not tolerate p.o. metronidazole well. Advised her to continue the gel and follow-up closely with her OBGYN for further evaluation and management. Discussed strict ED return precautions. She is agreeable with the plan verbalized understanding. Discharged in stable condition. Lab Data 08/26/24 18:14 08/26/24 18:14 Labs: Lab Results 08/26/24 Range/Units 18:14 WBC 6.6 (4.5-10.0) K/mm3 RBC 4.04 L (4.2-5.4) M/mm3 Hgb 11.9 L (12.0-15.0) g/dL Hct 37.5 (37.0-47.0) % MCV 92.8 (80-100) fl MCH 29.5 (26-34) pg MCHC 31.7 L (32-36) g/dl RDW 13.4 (11.5-14.5) % Plt Count 176 (150-375) k/mm3 MPV 11.3 H (7.4-10.4) fl Immature Gran % (Auto) 0.3 (0-0.5) % Neut % (Auto) 60.9 (45.5-73.1) % Lymph % (Auto) 30.3 (18.3-44.2) % [place] % (Auto) 5.2 (2.6-8.5) % Eos % (Auto) 2.7 (0-4.4) % Baso % (Auto) 0.6 (0.2-1.2) % Lymph # (Auto) 1.99 (0.9-3.2) K/mm3 [place] # (Auto) 0.3 (0.1-0.6) K/mm3 Eos # (Auto) 0.2 (0-0.3) K/mm3 Baso # (Auto) 0.0 (0.0-0.1) K/mm3 Abs Immat Gran (auto) 0.02 (0.00-0.031) K/mm3 Absolute Neuts (auto) 4.0 (1.3-6.7) K/mm3 Absolute Nucleated RBC 0.000 (0.0-0.012) K/mm3 Nucleated RBC % 0.0 (0.0-0.2) % PT 14.0 (11.1-14.7) Seconds INR 1.1 APTT 25.5 (22.3-36.8) Seconds Sodium 138 (137-145) mmol/L Potassium 3.6 (3.4-5.0) mmol/L Chloride 104 (98-107) mmol/L Carbon Dioxide 27 (22-30) mmol/L Anion Gap 7 (4-12) mmol/L BUN 6 L (7-17) mg/dL Creatinine 0.68 L (0.7-1.0) mg/dL Estim Creat Clear Calc 82 ml/min Estimated GFR > 60 (59 - ) Glucose 103 (65-110) mg/dL Calcium 9.3 (8.4-10.2) mg/dL Total Bilirubin 0.3 (0.2-1.3) mg/dL AST 26 (14-36) U/L ALT 16 (6-35) U/L Alkaline Phosphatase 51 (38-126) U/L Total Protein 7.6 (6.3-8.2) g/dL Albumin 4.5 (3.5-5.1) g/dL Beta HCG, Quant < 2.39 mIU/ML Urine Color [place] H (Yellow) Urine Appearance Cloudy H (Clear) Urine pH 8.5 (5.0-9.0) Ur Specific [place] 1.018 (1.001-1.035) Urine Protein 1+ H (Negative) mg/dL Urine Glucose (UA) Negative (Negative) mg/dL Urine Ketones Negative (Negative) mg/dL Ur Blood (Man) 3+ H (Negative) Urine Nitrate Negative (Negative) Urine Bilirubin Negative (Negative) Urine Urobilinogen 1.0 (<2.0) mg/dL Add Ur Microanalysis Reviewed Leukocyte Esterase Rfl 2+ H (Negative) ERASMO/UL Urine RBC >100 H (0-2) /hpf Urine WBC 11-20 H (0-3) /hpf Ur Squamous Epith Cells Few (Few) /hpf Urine Bacteria Rare /hpf Urine Casts 6-10 Discharge Plan Discharge Clinical Impression: Dysfunctional uterine bleeding Patient Disposition: Home Condition: Stable Instructions: Antibiotic Form, Abnormal (Dysfunctional) Uterine Bleeding (ED) Additional Instructions: Your evaluated in the emergency department for abnormal uterine bleeding. Your test here is negative. Her workup was largely reassuring. Please continue the metronidazole gel and follow-up with your OBGYN. Return to the emergency department if your saturating over 1 pad per hour, develop abdominal pain, fever, dizziness, or other concerning symptoms. Patient Language: Yakut Prescriptions: New naproxen 500 mg tablet 500 mg PO BID PRN (Reason: pain) Qty: 20 0RF No Action metronidazole 1.3 % (65 mg/5 gram) gel 1 appful vaginal ONCE Qty: 5 0RF Rx Instructions: as a single dose at bedtime metronidazole 1.3 % (65 mg/5 gram) gel 1 appful vaginal ONCE Qty: 5 0RF Rx Instructions: as a single dose at bedtime metronidazole 0.75 % (37.5mg/5 gram) gel 1 appful vaginal DAILY 5 Days Qty: 70 0RF metronidazole 1.3 % (65 mg/5 gram) gel 1 appful vaginal HS Qty: 5 0RF cephalexin 500 mg capsule 500 mg PO Q6H 7 Days Qty: 28 0RF Follow-up/Referrals: UNKNOWN,DOCTOR [Primary Care Provider] -
[2024-08-26 18:48] LABS: Add Urine Microscopic? YES; Appearance Urine Cloudy (Clear); Bacteria Urine Rare /hpf; Bilirubin Urine Negative (Negative); Blood Urine 3+ (Negative); Color Urine Orange (Yellow); Glucose Urine UA Negative (Negative); Ketones Urine Negative (Negative); Leukocyte Esterase Ur 2+ LEU/UL (Negative); Need Manual Microscopic Reviewed; Nitrate Urine Negative (Negative); Protein Urine 1+ mg/dL (Negative); RBC Urine >100 /hpf (0-2); Specific Grav Ur 1.018 (1.001-1.035); Squamous Epithelial Cell Urine Few /hpf (Few); pH Urine 8.5 (5.0-9.0)
== END 2024-08-26 19:47 | disposition home or self-care (01) ==
PROVIDERS: Emergency Medicine; Emergency Provider Physician Assistant
DX: N93.9 Abnormal uterine and vaginal bleeding, unspecified (principal)
CPT/HCPCS: 36415; 80053; 81001; 84702; 85025; 85610; 85730; 87086; 99283; J1885

== ENCOUNTER 2025-01-12 13:51 | Emergency (ER) | payer OTHER, SELFPAY ==
--- NOTE | 2025-01-12 13:55 | ED_ITS ---
HPI - Female Genitourinary General Chief complaint: Urogenital-Female Stated complaint: discharge from private area Time Seen by Provider: 01/12/25 14:05 Source: patient Mode of arrival: ambulatory Limitations: no limitations History of Present Illness HPI Narrative: Carrie is a 29-year-old female patient presenting to the clinic today with complaints of vaginal discharge x1 week. She reports she has a creamy white malodorous vaginal discharge with some itching for the past week. States she has changed her body soap recently. No new sexual partners but is having unprotected intercourse. She denies any urinary symptoms. Denies concern for STI. She is concerned that she may have a bacterial vaginosis versus yeast infection. Denies any fevers, chills, body aches. Denies any nausea or vomiting. No abdominal pain or back pain. Related Data Allergies Allergy/AdvReac Type Severity Reaction Status Date / Time No Known Drug Allergies Allergy Unknown Unknown Verified 01/12/25 13:59 Review of Systems Review of Systems: Pertinent positives per HPI. Patient denies any fever, chills, rash, headache, visual changes, dizziness, cough, runny nose, sore throat, shortness of breath, chest pain, palpitations, nausea, vomiting, diarrhea, constipation, abdominal pain, or any urinary issues. [facility] Past Medical History Medical History Healthy adult Surgical History Surgical History No history of previous surgery Social History Social History Smoking status: Never smoker Gender identity (if verbalized by the patient): Female Comments At the time of my signature, I reviewed and agree with the nursing past medical, surgical, social, and family history. There is no relevant family history pertinent to the patient complaint. Exam Narrative: General: Well-developed, well nourished, in no apparent distress Head: Normocephalic, atraumatic. Cardio: Regular rate and rhythm, s1 and s2 normal, no murmur appreciated. Resp: Clear to auscultation bilaterally, no rhonchi, rales, wheezing or rubs. Abdomen: Soft, pliable, bowel sounds present in all quadrants, non-tender to palpation, no CVAT tenderness. : Pelvic exam performed with (Donya DALEY) at bedside. Verbal consent obtained from patient. Normal external female genitalia without lesions or masses, Urinary meatus: patent without discharge, Vagina: No lesions or masses- white creamy vaginal discharge-malodorus Cervix: pink without mass, lesions, discharge, or tenderness. Course Course Emergency Course: Portions of this record may have been created with voice recognition software. Level of Care: Express Care Visit Vital Signs Vital signs: Vital Signs Temperature 36.8 C 01/12/25 13:59 Pulse Rate 63 01/12/25 13:59 Respiratory Rate 16 01/12/25 13:59 Blood Pressure 113/75 01/12/25 13:59 Pulse Oximetry 100 01/12/25 13:59 Oxygen Delivery Room Air 01/12/25 13:59 Temperature 36.8 C 01/12/25 13:59 Pulse Rate 63 01/12/25 13:59 Respiratory Rate 16 01/12/25 13:59 Blood Pressure 113/75 01/12/25 13:59 Pulse Oximetry 100 01/12/25 13:59 Oxygen Delivery Room Air 01/12/25 13:59 Vital signs reviewed MDM - Female Genitourinary MDM Narrative Medical decision making narrative: At the time of visit patient is resting comfortably on the exam table. Patient appears to be nontoxic. Complaints of vaginal discharge x1 week. She reports she has a creamy white malodorous vaginal discharge with some itching for the past week. States she has changed her body soap recently. No new sexual partners but is having unprotected intercourse. Denies concern for STI. She denies any urinary symptoms. She is concerned that she may have a bacterial vaginosis versus yeast infection. Denies any fevers, chills, body aches. Denies any nausea or vomiting. No abdominal pain or back pain. On exam patient has soft pliable nontender abdomen, no CVAT tenderness, bowel sounds present all 4 quadrants, verbal consent obtain for pelvic exam-patient has normal external genitalia, no lesions or masses noted over the unclear is, labia minora or labia majora, has creamy white malodorous vaginal discharge. Cervix pink and healthy appearing, swabs were obtained for chlamydia, gonorrhea, Trichomonas, bacterial vaginosis, and genital culture. Plan: I suspect patient likely has bacterial vaginosis as she has recently changed soaps and is having white creamy malodorous discharge with some itching. Prescription for Metrogel was sent to the pharmacy per patient's request as she did not want metronidazole pills. Supportive measures were discussed with the patient and they voiced understanding discharge instructions and agrees to treatment plan. Return precautions reviewed Discharge Plan Discharge Clinical Impression: Vaginal discharge Patient Disposition: Home Condition: Stable Instructions: Antibiotic Form, Bacterial Vaginosis (ED), Vaginal Discharge (ED) Additional Instructions: Take Metrogel as prescribed-this will treat BV We have tested you for STIs in the clinic today. Testing for chlamydia, gonorrhea, trichomonas, bacterial vaginosis, and genital culture was sent to the lab. Avoid any sexual activity- includes oral, anal, or vaginal intercourse until you get results back and have completed any additional recommended treatment regimens. We will contact you if testing is positive and make sure your treatment was appropriate for the type of STI. If symptoms worsen after treatment recommend reevaluation with your PCP, OBGYN, or STI clinic. Patient Language: Amharic Prescriptions: New metronidazole [Vandazole] 0.75 % (37.5mg/5 gram) gel 1 appful vaginal HS 5 Days Qty: 70 0RF Follow-up/Referrals: UNKNOWN,DOCTOR [Primary Care Provider] Time of Disposition: 14:27 Quality NIHSS Nursing Documentation ED NIHSS nursing documentation: reviewed/agree
[2025-01-12 13:59] VITALS: BP 113/75; PULSE 63; RESP 16; TEMP 36.8; O2SAT 100
[2025-01-12 19:16] LABS: Trichomonas Vag PCR NOT DETECTED (NOT DETECTE)
== END 2025-01-12 14:44 | disposition home or self-care (01) ==
PROVIDERS: Emergency Provider Nurse Practitioner Family
DX: N89.8 Other specified noninflammatory disorders of vagina (principal); Z11.3 Encounter for screening for infections with a predominantly sexual mode of transmission
CPT/HCPCS: 87070; 87491; 87591; 87661; 87798; 99213; G0463